=== PATIENT | male | born 1950 | race Caucasian/White ===

== ENCOUNTER 2021-06-22 15:42 | Emergency (ER) | payer OTHER, SELFPAY ==
--- NOTE | ~2021-06-22 | CT_ITS ---
EXAMINATION: CT CERVICAL SPINE WITHOUT CONTRAST CLINICAL INFORMATION: Neck pain radiating to the right side COMPARISON: None TECHNIQUE: Multidetector CT imaging of the cervical spine was performed without the use of intravenous contrast. Coronal and sagittal reformats are reviewed. This CT examination was performed using dose optimization techniques as appropriate, variously including the following: *Automated exposure control *Adjustment of mA and/or kV according to patient size (this includes techniques or standardized protocols for targeted exams where dose is matched to indication/reason for exam; i.e. extremities or head) *Use of iterative reconstruction technique DLP: 402 mGy-cm FINDINGS: Atlantooccipital, atlantoaxial and cervical alignment are maintained. No acute fracture or subluxation. Vertebral body heights maintained. Bulky endplate osteophytes present throughout the cervical spine with accompanying uncovertebral arthrosis and facet arthropathy, the latter most notably at C2-C3 on the left. These changes lead to varying degrees of foraminal narrowing throughout the cervical spine, most severe on the right at C3-C4 and on the left at C2-C3 and C6-C7. There is at least mild central canal stenosis at C3-C4. Paraspinal soft tissues unremarkable. Imaged lung apices are clear. CT/CT cervical spine wo con IMPRESSION: No acute fracture or traumatic malalignment. Cervical spondylosis and foraminal narrowing as described.
[2021-06-22 16:22] VITALS: BP 133/69; PULSE 83; RESP 18; TEMP 36.4; O2SAT 98; BMI 24.0
--- NOTE | 2021-06-22 16:31 | PC.NURSE ---
pt presents to ED with steady gait, after a fall 3 weeks ago. C/O back and neck pain. No acute distress at this time, pt requires interpretive services
[2021-06-22] MEDS: Cyclobenzaprine HCl 5 MG TABLET PO (17:07)
[2021-06-22] MEDS: Acetaminophen 325 MG TABLET 650 MG PO (17:08)
--- NOTE | 2021-06-22 17:11 | ED.GENADULT ---
HPI - General Adult General Chief complaint: Fall Stated complaint: Fall/Neck and back pain Time Seen by Provider: 06/22/21 16:37 Source: patient Mode of arrival: ambulatory History of Present Illness HPI narrative: 71-year-old male with a past medical history of diabetes, hypertension, presenting to the ED complaining of upper back/shoulder and neck pain radiating to head worse on right side x3-4 days. Reports associated paresthesias to RUE. Admits to slipping and catching himself a few days ago however reports pain started prior to this incident, denies head trauma or fall. Denies vision change/loss, weakness, urinary incontinence/retention, back pain. Denies taking AC Onset (ago): day(s) Related Data Previous Rx's Medication Instructions Recorded acetaminophen 500 mg tablet 500 mg PO Q6H PRN #20 tab 06/22/21 (Tylenol Extra Strength) cyclobenzaprine 5 mg tablet 5 mg PO Q8H PRN 5 Days #14 tab 06/22/21 lidocaine 5 % topical patch 1 patch TOPICAL DAILY PRN #30 ea 06/22/21 (Lidoderm) MDD remove after 12 hours Allergies Allergy/AdvReac Type Severity Reaction Status Date / Time No Known Allergies Allergy Unverified 11/17/19 19:28 [No Known Allergies*] Review of Systems Review of Systems: Constitutional: No Fever, No Chills ENT/Mouth: No Ear Pain, No Nasal Congestion, No sore throat, No Rhinorrhea, No Swallowing Difficulty Cardiovascular: No Chest Pain, No SOB Respiratory: No Cough, No Sputum Gastrointestinal: No Nausea, No Vomiting, No Diarrhea, No Constipation, No Abdominal pain Genitourinary: No Dysuria, No Urinary Frequency, No Hematuria, No Urinary Incontinence/retention Musculoskeletal: + joint pain, No Myalgias, No Joint Swelling Skin: No Skin Lesions, No rash Neuro: No Weakness, No Numbness, + Paresthesias Yes all other systems are reviewed and are negative Neurologic: Denies Sensory deficit (Neuro) [facility] Past Medical History Attestation statement: The following information was validated with the patient. Medical History Diabetes HTN (hypertension) Social History Social History Advance Directives: No Advance Directives Information Provided: No Physical Exam ED Vital Signs: Vital Signs - 24 hr 06/22/21 16:22 Temperature 97.5 F Pulse Rate 83 Respiratory Rate 18 Blood Pressure 133/69 Pulse Oximetry 98 BMI result Body Mass Index 24.0 Const General: cooperative, healthy appearing, no acute distress, alert and awake Orientation/consciousness: patient oriented x3 Limitations: no limitations HENMT Head: Yes normal to inspection and Yes atraumatic Ears: hearing grossly normal bilaterally, external ears normal, TM's normal bilaterally and mastoids normal General nose exam: Normal external nose present Face and sinus: Yes normal facial exam Eyes General: appearance normal, both eyes and all related structures EOM: EOMs intact bilaterally Neck Other: No midline cervical spine tenderness. Right-sided neck MSK tenderness and right trapezius muscle tenderness Neck: Yes normal visual inspection, Yes no meningeal signs, Yes supple and No anterior neck swelling Resp Effort & Inspection: normal respiratory effort, no respiratory distress, no stridor and not tachypneic Cardio Rate: regular rate Heart sounds: S1 normal heart sound present and S2 normal heart sound present Peripheral pulses: radial pulses present General: Yes no CVA tenderness Back/Spine/Pelvis Other: No midline thoracic/lumbar spinous tenderness/step-off or deformity Back: no CVA tenderness Skin Rashes: no rashes Wounds: no wounds Neuro General: patient oriented x3, gait normal, tone normal, moves all extremities, no meningeal signs and no focal motor deficits Gait exam (Neuro): Normal gait present Motor exam (neuro): 5/5 motor strength present throughout Sensory Exam: No Sensory deficit (Neuro) Extrem General: Yes normal to inspection Course Course Course Narrative: CT cervical spine wo con IMPRESSION: No acute fracture or traumatic malalignment. Cervical spondylosis and foraminal narrowing as described. >> results discussed with patient with japanese interpreter including worrisome signs and symptoms and strict return precautions and need close follow-up with PCP. Patient reports mild symptomatic improvement after p.o. Flexeril in the ED. Feels safe for discharge home at this time Medical Decision Making MDM Narrative Medical decision making narrative: 71-year-old male with a past medical history of diabetes, hypertension, presenting to the ED complaining of upper back/shoulder pain radiating to neck pain and head radiating worse on right side x3-4 days. On exam vital signs stable, NAD/nontoxic appearing, physical exam as above, no midline spinous tenderness. Concern for MSK pain/strain. Lower concern for cord compression, cervical dissection Plan: Cervical spine CT Medical Records Medical records reviewed: Yes I reviewed the patient's medical records. Lab Data Lab results reviewed: Yes I reviewed the patient's lab results. Discharge Plan Discharge Clinical Impression: Neck pain, Back pain Patient Disposition: Home, Self-Care Instructions: Back Pain (ED), Acute Neck Pain (ED) Additional Instructions: Your CT scan does not show any fracture, does show some arthritic changes/narrowing in her cervical spine it is important for you to follow-up with your primary care doctor Your pain is likely musculoskeletal Flexeril is a muscle relaxer, take at night as it makes you drowsy, do not drive, drink alcohol, or operate machinery while taking it Lidoderm patches are numbing patches, apply to painful area In addition take Tylenol at home If symptoms persist or worsen, pain becomes unbearable, you developed urinary retention or incontinence, or weakness return to the ED Roberts tomograf?a computarizada no muestra ninguna fractura, muestra algunos cambios artr?ticos/estrechamiento en la columna cervical. Es importante que mitul un seguimiento con roberts m?dico de atenci?n primaria. Es probable que roberts dolor sea musculoesquel?john Flexeril es un relajante muscular, t?nicki por la noche ya que te adormece, no conduzcas, bebas alcohol ni operes maquinaria mientras lo atilio. Los parches de Lidoderm son parches anest?sicos, se aplican en el ?licha dolorida Adem?s keiry Tylenol en casa Si los s?ntomas persisten o empeoran, el dolor se vuelve insoportable, desarroll? retenci?n urinaria o incontinencia, o debilidad, regrese al servicio de urgencias. Prescriptions: New acetaminophen [Tylenol Extra Strength] 500 mg tablet 500 mg PO Q6H PRN (Reason: pain or fever) Qty: 20 0RF lidocaine [Lidoderm] 5 % adhesive patch,medicated 1 patch topical DAILY MDD remove after 12 hours PRN (Reason: pain) Qty: 30 0RF Rx Instructions: leave on most painful area for up to 12 hrs cyclobenzaprine 5 mg tablet 5 mg PO Q8H PRN (Reason: pain (scale score 7-10)) 5 Days Qty: 14 0RF Referrals: Name,MD Martin [Primary Care Provider] - 5 days Print Language: Scottish
== END 2021-06-22 18:20 | disposition home or self-care (01) ==
PROVIDERS: Emergency Provider Emergency Medicine Emergency Medical Services; PCP Internal Medicine Geriatric Medicine
DX: M54.2 Cervicalgia (principal); M25.511 Pain in right shoulder; M54.50 Low back pain, unspecified; Z79.899 Other long term (current) drug therapy
CPT/HCPCS: 72125; 99284

== ENCOUNTER 2022-06-16 11:54 | Emergency (ER) | payer OTHER, SELFPAY ==
--- NOTE | ~2022-06-16 | XR_ITS ---
EXAMINATION: XR CERVICAL SPINE CLINICAL INFORMATION: Right-sided neck pain radiating to shoulder COMPARISON: Cervical spine CT May 2021 TECHNIQUE: 3 views of the cervical spine were obtained. FINDINGS: Bone alignment is normal. No fracture or dislocation. There is severe multilevel degenerative spondylosis from C2-C3 to C6-C7. Prevertebral soft tissues are normal. XR/XR cervical spine 3V IMPRESSION: Severe multilevel degenerative changes.
[2022-06-16 12:08] VITALS: BP 151/68; PULSE 95; RESP 18; TEMP 36.7; O2SAT 99; BMI 20.9
--- NOTE | 2022-06-16 12:09 | ED.NECK ---
HPI - Neck Pain/Injury General Stated Complaint: neck/ back pain Related Data Previous Rx's Medication Instructions Recorded acetaminophen 500 mg tablet 500 mg PO Q6H PRN pain or fever 06/22/21 (Tylenol Extra Strength) #20 tabs cyclobenzaprine 5 mg tablet 5 mg PO Q8H PRN pain (scale score 06/22/21 7-10) 5 days #14 tabs lidocaine 5 % topical patch 1 patch topical DAILY PRN pain #30 06/22/21 (Lidoderm) ea Allergies Allergy/AdvReac Type Severity Reaction Status Date / Time No Known Allergies Allergy Unverified 11/17/19 19:28 [No Known Allergies*] [facility] Past Medical History Medical History Diabetes HTN (hypertension) Course Course Course Narrative: RME - 72yo mosotho speaking male presenting for right sided neck pain radiating to his shoulder for [address] of his cervical spine for similar symptoms 06/22/21 which showed cervical spondylosis and foraminal narrowing for which he received Flexeril and Lidoderm patches. Increasing pain over past 3 months. Weakness of right arm with no numbness of tingling. Plan: X-ray Discharge Plan Discharge Prescriptions: No Action acetaminophen [Tylenol Extra Strength] 500 mg tablet 500 mg PO Q6H PRN (Reason: pain or fever) Qty: 20 0RF lidocaine [Lidoderm] 5 % adhesive patch,medicated 1 patch topical DAILY MDD remove after 12 hours PRN (Reason: pain) Qty: 30 0RF Rx Instructions: leave on most painful area for up to 12 hrs cyclobenzaprine 5 mg tablet 5 mg PO Q8H PRN (Reason: pain (scale score 7-10)) 5 Days Qty: 14 0RF
--- NOTE | 2022-06-16 14:02 | ED.GENADULT ---
HPI - General Adult General Chief complaint: General Medical Stated complaint: neck/ back pain Time Seen by Provider: 06/16/22 13:49 Source: patient Mode of arrival: ambulatory Limitations: no limitations History of Present Illness HPI narrative: 72 year old male history of diabetes presents to the ED for posterior neck pain radiating down right shoulder. Patient denies any new trauma. Patient denies any chest pain, shortness of breath, swelling of upper extremities, dizziness, passing out, headache, fever, headache, photophobia, rash or chills. Patient denies paralysis of extremities. patient denies any urinay/bowel incontinence Related Data Previous Rx's Medication Instructions Recorded acetaminophen 500 mg tablet 500 mg PO Q6H PRN pain or fever 06/22/21 (Tylenol Extra Strength) #20 tabs cyclobenzaprine 5 mg tablet 5 mg PO Q8H PRN pain (scale score 06/22/21 7-10) 5 days #14 tabs lidocaine 5 % topical patch 1 patch topical DAILY PRN pain #30 06/22/21 (Lidoderm) ea cyclobenzaprine 10 mg tablet 10 mg PO BEDTIME PRN muscle spasm 06/16/22 10 days #10 tabs naproxen 500 mg tablet 500 mg PO BID PRN pain 7 days #14 06/16/22 tabs prednisone 20 mg tablet 40 mg PO DAILY 5 days #10 tabs 06/16/22 Allergies Allergy/AdvReac Type Severity Reaction Status Date / Time No Known Allergies Allergy Unverified 11/17/19 19:28 [No Known Allergies*] Review of Systems Review of Systems: Posterior neck pain radiating right shoulder Yes all other systems are reviewed and are negative [facility] Past Medical History Medical History Diabetes HTN (hypertension) Social History Social History Advance Directives: No Advance Directives Information Provided: Yes Physical Exam ED Vital Signs: Vital Signs - 24 hr 06/16/22 12:08 Temperature 98.0 F Pulse Rate 95 Respiratory Rate 18 Blood Pressure 151/68 H Pulse Oximetry 99 Oxygen Delivery Method Room Air BMI result Body Mass Index 20.9 Const General: cooperative, healthy appearing, comfortable, no acute distress, well developed, alert, awake and Physically active Orientation/consciousness: oriented to person, oriented to place, oriented to time and patient oriented x3 [facility] Head: Yes normal to inspection, Yes No palpable skull fracture present, Yes normocephalic, Yes atraumatic and No abrasion Throat: Yes posterior oropharynx normal, Yes tonsils normal and Yes uvula midline Eyes Other: negative photophobia General: appearance normal, both eyes and all related structures Neck Neck: Yes normal visual inspection, Yes full ROM, Yes no lymphadenopathy, Yes no meningeal signs, Yes trachea midline, Yes supple, No anterior neck swelling, Yes tender (posterior cervical spine tenderness) and No torticollis Chest Chest palpation & inspection: normal inspection of the chest and normal palpation of entire chest wall Resp Effort & Inspection: normal respiratory effort and able to speak in complete sentences Auscultation: clear to auscultation bilaterally Cardio Jugular venous distension: no JVD Heart sounds: S1 normal heart sound present and S2 normal heart sound present GI Inspection: Yes normal to inspection and No abdominal wall ecchymosis Palpation (GI): Soft to palpation, not firm, nontender, no guarding and not rigid General: No CVA tenderness and Yes no CVA tenderness Back/Spine/Pelvis Back: no CVA tenderness, No CVA tenderness and No back tenderness Skin General skin exam: no rashes or lesions noted and elasticity normal Neuro General: oriented to person, oriented to place, oriented to time, patient oriented x3, gait normal, tone normal, moves all extremities, Normal light touch and pain sensation, no meningeal signs, no focal motor deficits and CN's II-XI intact bilaterally Extrem General: Yes normal to inspection and Yes full ROM Psych Appearance: grossly normal, well kempt and not disheveled Course Course Course Narrative: Sent for x-ray of spine. Reevaluation(s) Reevaluation #1: X-ray shows severe cervical radiculopathy. Negative for fracture. Not suspect epidural abscess or cauda equinus syndrome. Patient informed to follow-up primary care provider for referral for physical therapy and MRI. History physical exam does not indicate meningitis. Time: 14:13 Medical Decision Making Medical Decision Making [facility] Narrative: 72 old male with posterior neck pain radiating down right shoulder. Patient denies any trauma, chest pain, paralysis of extremities, headache, fever, chills, rash, photophobia. X-ray confirms cervical radiculopathy. Patient educated physical therapy and follow-up with primary care provider for MRI. Patient will be discharged with steroids and pain medication Differential Diagnosis Differential Diagnoses: The differential diagnosis associated with the presentation includes (Cervical spine fracture. Cervical radiculopathy. Meningitis. Epidural abscess, cauda equinus syndrome.) Admission/Observation Consideration of admission/observation: Escalation of care including admission/observation considered Independent Interpretation I performed an independent interpretation of an: Plain X-Ray Radiology Impression Discussion of test interpretation with radiology: I have reviewed the radiologist's reading. Prescription Management I considered prescription management with: Pain Medication Discharge Plan Discharge Clinical Impression: Cervical radiculopathy Patient Disposition: Home, Self-Care Instructions: Cervical Radiculopathy (ED) Additional Instructions: Regrese al servicio de urgencias inmediatamente si empeora el dolor de victorino, dolor de neema, fotofobia, fiebre, escalofr?os, par?lisis de las extremidades, dolor tor?cico, dificultad para respirar, incontinencia urinaria o intestinal o cualquier otro s?ntoma preocupante. Cindy un seguimiento con diaz proveedor de atenci?n primaria para que lo remita a fisioterapia y tambi?n a aníbal resonancia magn?baldev. Prescriptions: New prednisone 20 mg tablet 40 mg PO DAILY 5 Days Qty: 10 0RF cyclobenzaprine 10 mg tablet 10 mg PO BEDTIME PRN (Reason: muscle spasm) 10 Days Qty: 10 0RF naproxen 500 mg tablet 500 mg PO BID PRN (Reason: pain) 7 Days Qty: 14 0RF No Action acetaminophen [Tylenol Extra Strength] 500 mg tablet 500 mg PO Q6H PRN (Reason: pain or fever) Qty: 20 0RF lidocaine [Lidoderm] 5 % adhesive patch,medicated 1 patch topical DAILY MDD remove after 12 hours PRN (Reason: pain) Qty: 30 0RF Rx Instructions: leave on most painful area for up to 12 hrs cyclobenzaprine 5 mg tablet 5 mg PO Q8H PRN (Reason: pain (scale score 7-10)) 5 Days Qty: 14 0RF Interventions: ED Discharge Assessment Last Done: 06/16/22 14:47 Discharge Date/Time: 06/16/22 14:48 Print Language: Yemeni
== END 2022-06-16 14:48 | disposition home or self-care (01) ==
PROVIDERS: Emergency Provider Emergency Medicine
DX: M54.12 Radiculopathy, cervical region (principal); M54.2 Cervicalgia; E11.9 Type 2 diabetes mellitus without complications; I10 Essential (primary) hypertension; Z79.899 Other long term (current) drug therapy
CPT/HCPCS: 72040; 99282; 99283

== ENCOUNTER 2022-09-15 13:50 | Outpatient (REF) | payer OTHER, SELFPAY ==
[2022-09-15 16:37] LABS: Anion Gap 16 (12-20); Blood Urea Nitrogen 21 mg/dL (9-16); Carbon Dioxide 27 mmol/L (22-29); Chloride 97 mmol/L (96-108); Estimated Glomerular Filt Rate > 60; Glucose Random 265 mg/dL (60-115); Potassium 4.9 mmol/L (3.3-5.1); Sodium 135 mmol/L (135-145)
== END 2022-09-15 13:51 | disposition home or self-care (01) ==
LOC: HO.HHCL 13:50
PROVIDERS: Visit Provider Internal Medicine Geriatric Medicine
DX: E11.8 Type 2 diabetes mellitus with unspecified complications (principal)
CPT/HCPCS: 36415; 80048

== ENCOUNTER 2022-09-19 13:00 | Outpatient (RCR) | payer OTHER, SELFPAY | END 2022-10-06 10:02 | disposition home or self-care (01) | LOC: HO.PT 13:00 | PROVIDERS: PCP Internal Medicine Geriatric Medicine; Visit Provider Internal Medicine Geriatric Medicine | DX: M25.511 Pain in right shoulder (principal); G89.29 Other chronic pain | CPT/HCPCS: 97110; 97140; 97161 ==

== ENCOUNTER 2022-12-16 13:30 | Outpatient (AMB) | payer OTHER, SELFPAY ==
--- NOTE | 2022-12-16 13:39 | MHC.OFFVIS ---
Intake Vital Signs 12/16/22 13:40 Height 5 ft 6 in Weight 126 lb BMI 20.3 BP 103/47 L Blood Pressure Location Lt brachial Position Sitting Pulse 77 Intake Visit Reasons: Dysphagia Intake Note: Patient new consult for Dysphagia. Patient cc: acid reflex and swallowing problems, denies any other GI issues. Contact And Service Clerks Supervisor Required: Yes Contact And Service Clerks Supervisor Name: Stephie [phone] Accompanied by: Self / Same As Patient Allergies No Known Allergies [No Known Allergies*] Allergy (Verified 12/16/22 13:35) Medication List - Last Reconciled 12/16/22 by Denise Paniagua PA-C acetaminophen (Tylenol Extra Strength) 500 mg PO Q6H PRN buspirone 7.5 mg PO BID cyclobenzaprine 5 mg PO Q8H PRN 5 days cyclobenzaprine 10 mg PO BEDTIME PRN 10 days dulaglutide (Trulicity) mg subcut insulin aspart U-100 (Novolog FlexPen U-100 Insulin aspart) subcut insulin glargine (Lantus Solostar U-100 Insulin) units subcut lidocaine 5% (Lidoderm) 1 patch topical DAILY PRN MDD remove after 12 hours lisinopril 10 mg PO DAILY metformin 1,000 mg PO BID naproxen 500 mg PO BID PRN 7 days prednisone 40 mg (2 x 20 mg) PO DAILY 5 days pregabalin 75 mg PO DAILY simvastatin 20 mg PO BEDTIME HPI HPI Comments History of Present Illness Details A 72 y/o male here with acid reflux and dysphagia- he has difficulty swallowing pill. Acid reflux, intermittently-no ppi or H2 mara- He has lost weight- over the past year- about 20 pounds -he is DM-jardiance and trulicity-appetite is very good. He is a former smoker, he does have a chronic nonproductive cough Blood sugars are not well controlled - He has not had a Barium swallow- scheduled for 02/25/23 He had a colonoscopy 5 years ago in [facility] Medical History (Updated 12/22/22 @ 11:13 by Denise Paniagua PA-C) HTN (hypertension) Diabetes Surgical History History of back surgery Social History Household Members: Family Alcohol intake: never Patient Tobacco Use Status: Never used Tobacco Review of Systems Const All systems reviewed & are unremarkable except as noted in HPI and below Denies chills, Reports fatigue, Denies fever(s) and Reports weight loss ENT Reports dysphagia Card Denies chest pain and Denies dyspnea Resp Denies dyspnea GI Reports dysphagia and Reports heartburn Endo Reports fatigue Physical Exam Vital Signs: Last Vital Signs Pulse 77 12/16/22 13:40 BP 103/47 L 12/16/22 13:40 BMI result Body Mass Index 20.3 Const General: comfortable and no acute distress Nutritional Appearance: thin Orientation/consciousness: patient oriented x3 Eyes Sclerae: sclerae normal Resp Effort & Inspection: normal respiratory effort, able to speak in complete sentences and Actively coughing Auscultation: no wheezes and diminished lung sounds Cardio Rate: regular rate Rhythm: regular rhythm Heart sounds: S1 normal heart sound present and S2 normal heart sound present GI Palpation (GI): Soft to palpation and nontender Auscultation: normal bowel sounds Skin General skin exam: no rashes or lesions noted Neuro General: patient oriented x3 Extrem General: Yes full ROM Psych Mental Status: mental status grossly normal Speech and movement: Clear speech present Affect: normal affect Attitude: cooperative Thought process: Normal thought process present Thought content: Normal thought content present Insight: Good insight present (Psych) Judgement: Good judgement present (Psych) Assessment & Plan Assessment & Plan (1) Dysphagia: Code(s): R13.10 - Dysphagia, unspecified Plan: ck HP-if positive will treat PPI-if negative (2) Weight loss: Comment: Monitor weight DM- Former smoker with cough Code(s): R63.4 - Abnormal weight loss Plan: CXR- (3) Acid reflux: Comment: H pylori stool antigen if positive will treat Code(s): K21.9 - Gastro-esophageal reflux disease without esophagitis Plan: Reflux precautions (4) Anemia: Code(s): D64.9 - Anemia, unspecified Plan Last colonoscopy in [place] 5 years or more With dysphagia/GERD EGD Will see back in office and discuss in detail procedure Orders: Orders Hepatitis C Viral Load 12/16/22 D64.9 - Anemia, unspecified, R63.4 - Abnormal weight loss Ferritin 12/16/22 D64.9 - Anemia, unspecified Complete Blood Count Auto Diff 12/16/22 K52.9 - Noninfective gastroenteritis and colitis, unspecified Endomysial IgA rflx Titer 12/16/22 D64.9 - Anemia, unspecified EDG - GI Use Only 12/16/22 XR chest 2V 12/16/22 R05.9 - Cough, unspecified, R63.4 - Abnormal weight loss H pylori Ag Stool 12/17/22 A04.8 - Other specified bacterial intestinal infections Comprehensive Met. Panel 12/16/22 K58.9 - Irritable bowel syndrome without diarrhea Thyroid Stimulating Hormone 12/16/22 D64.9 - Anemia, unspecified, R63.4 - Abnormal weight loss Transglutaminase IgA 12/16/22 D64.9 - Anemia, unspecified, R13.10 - Dysphagia, unspecified EGD/[place] Combo - GI Use Only Today D64.9 - Anemia, unspecified, K21.9 - Gastro-esophageal reflux disease without esophagitis, R13.10 - Dysphagia, unspecified, R63.4 - Abnormal weight loss Patient Instructions: Labs, chest x-ray H pylori stool antigen if positive will treat Will see back in office in 1 wk to review results Schedule EGD and colonoscopy Coding Level of Care Code New Pt Level 3 (78869) Diagnoses Dysphagia R13.10 Weight loss R63.4 Acid reflux K21.9 Anemia D64.9 Time Spent (min) 30 Comment 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
[2022-12-16 13:40] VITALS: BP 103/47; PULSE 77; BMI 20.3
== END 2022-12-16 14:12 | disposition home or self-care (01) ==
PROVIDERS: PCP Internal Medicine Geriatric Medicine; Visit Provider Physician Assistant
DX: R13.10 Dysphagia, unspecified (principal); R63.4 Abnormal weight loss; K21.9 Gastro-esophageal reflux disease without esophagitis; D64.9 Anemia, unspecified
CPT/HCPCS: 99203

== ENCOUNTER 2022-12-16 13:30 | Outpatient (REF) | payer OTHER, SELFPAY ==
--- NOTE | ~2022-12-16 | XR_ITS ---
EXAMINATION: XR CHEST CLINICAL INFORMATION: Abnormal weight COMPARISON: 04/27/2018 TECHNIQUE: 2 views of the chest were obtained. FINDINGS: Lungs are clear cardiomediastinal silhouette is normal. There is no pleural effusion lung masses or nodules. There is mild pectus carinatum deformity. There are mild degenerative changes in thoracic spine. XR/XR chest 2V IMPRESSION: No active cardiopulmonary disease
[2022-12-16 14:35] LABS: MANUAL DIFF FLAG NO
[2022-12-16 14:48] LABS: Basophils Percent Auto 0.1 % (0-2); Eosinophils Percent Auto 0.3 % (0-4); Hematocrit 41.1 % (42.0-52.0); Hemoglobin 13.9 g/dl (14.0-18.0); Imm Gran Abs Auto 0.02 X10*3/uL (0.00-0.03); Imm Gran Pct Auto 0.3 % (0.0-0.4); Lymphocytes Absolute Auto 1.9 X10*3/uL (1.2-4.9); Lymphocytes Percent Auto 24.7 % (20-40); Mean Corpuscular HGB Conc 33.8 g/dl (31.0-36.0); Mean Corpuscular Volume 88.6 fL (80.0-98.0); Mean Platelet Volume 10.5 fL (9.4-12.4); Monocytes Absolute Auto 0.6 X10*3/uL (0.1-1.2); Neutrophils Absolute Auto 5.3 x10*3/uL (2.0-8.3); Neutrophils Percent Auto 67.6 % (45-73); Platelet Count 229 X10*3/uL (160-400); Red Blood Count 4.64 X10*6/uL (4.60-5.80); Red Cell Distribution Width 12.9 % (11.0-16.0); White Blood Count 7.9 X10*3/uL (4.8-10.8)
[2022-12-16 16:01] LABS: Alanine Aminotransferase 23 U/L (0-40); Albumin Level 4.6 g/dL (3.5-5.0); Alkaline Phosphatase 55 U/L (39-117); Anion Gap 18 (12-20); Aspartate Amino Transferase 23 U/L (5-37); Bilirubin Total 0.3 mg/dL (0.0-1.0); Blood Urea Nitrogen 23 mg/dL (9-16); Calcium 10.6 mg/dL (8.4-10.2); Carbon Dioxide 26 mmol/L (22-29); Chloride 97 mmol/L (96-108); Estimated Glomerular Filt Rate > 60; Glucose Random 123 mg/dL (60-115); Potassium 5.4 mmol/L (3.3-5.1); Sodium 136 mmol/L (135-145); Total Protein 7.4 g/dL (6.5-8.0)
[2022-12-16 16:12] LABS: Ferritin 49 ng/mL (20-250); Thyroid Stimulating Hormone 1.36 uIU/mL (0.32-4.0)
[2022-12-17 18:39] LABS: HCV Log PCR <1.18 NOT DETECTED Log IU/mL (NOT DETECTED); HepC Viral Load <15 NOT DETECTED IU/mL (NOT DETECTED)
[2022-12-18 17:53] LABS: Transglutaminase IgA <1.0 U/mL
[2022-12-20 12:12] LABS: Endomysial IgA Antibody Negative (Negative)
== END 2022-12-16 13:31 | disposition home or self-care (01) ==
LOC: HO.LAB 13:30
PROVIDERS: PCP Internal Medicine Geriatric Medicine; Visit Provider Physician Assistant
DX: R13.10 Dysphagia, unspecified (principal); R63.4 Abnormal weight loss; K21.9 Gastro-esophageal reflux disease without esophagitis; D64.9 Anemia, unspecified; K58.9 Irritable bowel syndrome, unspecified; R05.9 Cough, unspecified
CPT/HCPCS: 36415; 71046; 80053; 82728; 84443; 85025; 86231; 86364; 87522; 99202

== ENCOUNTER 2022-12-17 13:03 | Outpatient (REF) | payer OTHER, SELFPAY | END 2022-12-17 13:04 | disposition home or self-care (01) | LOC: HO.LNP 13:03 | PROVIDERS: Visit Provider Physician Assistant | DX: A04.8 Other specified bacterial intestinal infections (principal) | CPT/HCPCS: 87338 ==

== ENCOUNTER 2022-12-17 15:14 | Outpatient (REF) | payer OTHER, SELFPAY ==
[2022-12-17 16:39] LABS: Anion Gap 17 (12-20); Blood Urea Nitrogen 25 mg/dL (9-16); Calcium 10.4 mg/dL (8.4-10.2); Carbon Dioxide 25 mmol/L (22-29); Chloride 97 mmol/L (96-108); Estimated Glomerular Filt Rate 59; Glucose Random 131 mg/dL (60-115); Potassium 4.7 mmol/L (3.3-5.1); Sodium 134 mmol/L (135-145)
== END 2022-12-17 15:15 | disposition home or self-care (01) ==
LOC: HO.HHCL 15:14
PROVIDERS: Visit Provider Internal Medicine Geriatric Medicine
DX: E87.5 Hyperkalemia (principal)
CPT/HCPCS: 36415; 80048

== ENCOUNTER 2022-12-30 14:02 | Outpatient (AMB) | payer OTHER, SELFPAY ==
--- NOTE | 2022-12-30 14:17 | A.OFFVIS_ITS ---
Intake Vital Signs 12/30/22 14:19 Height 5 ft 6 in Weight 136 lb BMI 21.9 BP 104/58 L Blood Pressure Location Lt brachial Position Sitting Pulse 87 Intake Visit Reasons: 2 week follow up Dysphagia Intake Note: Patient follow up for Dysphagia , lab and stool results. Patient cc: swallowing problem, discomfort on his left arm, denies any other GI issues. Events [employer] Consultant Required: Yes Events [employer] Consultant Name: [facility] [place] interpeter Accompanied by: Self / Same As Patient Allergies No Known Allergies [No Known Allergies*] Allergy (Verified 12/30/22 14:17) Medication List - Last Reconciled 12/30/22 by Denise Paniagua PA-C acetaminophen (Tylenol Extra Strength) 500 mg PO Q6H PRN buspirone 7.5 mg PO BID cyclobenzaprine 5 mg PO Q8H PRN 5 days cyclobenzaprine 10 mg PO BEDTIME PRN 10 days dulaglutide (Trulicity) mg subcut insulin aspart U-100 (Novolog FlexPen U-100 Insulin aspart) subcut insulin glargine (Lantus Solostar U-100 Insulin) units subcut lidocaine 5% (Lidoderm) 1 patch topical DAILY PRN MDD remove after 12 hours lisinopril 10 mg PO DAILY metformin 1,000 mg PO BID naproxen 500 mg PO BID PRN 7 days prednisone 40 mg (2 x 20 mg) PO DAILY 5 days pregabalin 75 mg PO DAILY simvastatin 20 mg PO BEDTIME HPI HPI Comments History of Present Illness Details A 72 y/o male seen with multiple c/o he had blood work done here for results Had faxed in results to PCP due to low-sodium ETC-patient tells me he had more blood work at his PCPs office Wt loss, acid reflux, dysphagia- anxiety Placed order for EGD colonoscopy Has barium swallow appointment pending schedule by PCP for 02/25/23 Sent for HP stool antigen- and labs He has started tx for anxiety- feels better , eating better He has no GI or general complaints today No nausea, vomiting, hematemesis, hematochezia fever chills PFSH Medical History (Updated 12/30/22 @ 14:54 by Denise Paniagua PA-C) HTN (hypertension) Diabetes Surgical History History of back surgery Social History Household Members: Family Alcohol intake: never Patient Tobacco Use Status: Never used Tobacco Review of Systems Const Details: All systems reviewed are negative conference interpreter present All systems reviewed & are unremarkable except as noted in HPI and below Physical Exam Vital Signs: Last Vital Signs Pulse 87 12/30/22 14:19 BP 104/58 L 12/30/22 14:19 BMI result Body Mass Index 21.9 very good spirits today Eyes Conjunctivae: conjunctivae normal Resp Effort & Inspection: normal respiratory effort and able to speak in complete sentences Auscultation: clear to auscultation bilaterally, no rhonchi, no wheezes and diminished lung sounds Cardio Rate: regular rate Rhythm: regular rhythm Heart sounds: S1 normal heart sound present and S2 normal heart sound present GI Palpation (GI): Soft to palpation and nontender Auscultation: normal bowel sounds Extrem General: Yes full ROM Psych Appearance: well kempt Speech and movement: Clear speech present Affect: normal affect (Very good spirits) Attitude: cooperative Thought process: Normal thought process present Thought content: Normal thought content present Insight: Good insight present (Psych) Judgement: Good judgement present (Psych) Results Reviewed Results Reviewed: HP - positive Assessment & Plan Assessment & Plan (1) Acid reflux: Code(s): K21.9 - Gastro-esophageal reflux disease without esophagitis (2) Weight loss: Comment: Monitor weight-increase weight Reviewed chest x-ray negative Code(s): R63.4 - Abnormal weight loss (3) Anemia: Code(s): D64.9 - Anemia, unspecified Plan: EGD colonoscopy appointment pending (4) H. pylori infection: Comment: Treat Code(s): A04.8 - Other specified bacterial intestinal infections Plan: Quadruple therapy KATHRIN 6 week Orders: Orders H Pylori Breath Test 6 Weeks A04.8 - Other specified bacterial intestinal infections Medications: New omeprazole 20 mg PO BID 14 days 28 caps 0RF metronidazole 250 mg PO QID 14 days 56 tabs 0RF tetracycline 500 mg PO Q6H 14 days 56 caps 0RF bismuth subsalicylate (Bismuth) 2 tabs PO QID 14 days 112 tabs 0RF Patient Instructions: Very pleasant 72-year-old Gent seen initially extremely anxious however is a in much better spirits today. Reviewed blood work and chest x-ray H pylori positive will treat with quadruple therapy-explained in detail He will return for KATHRIN in 6 weeks At that time we will reinforce EGD and colonoscopy as well as prep He is agreeable to the plan Opportunity for questions No major barriers to understanding were identified [employer] Consultant present Coding Level of Care Code Est Pt Level 3 (82383) Diagnoses Acid reflux K21.9 Weight loss R63.4 Anemia D64.9 H. pylori infection A04.8 Time Spent (min) 30
[2022-12-30 14:19] VITALS: BP 104/58; PULSE 87; BMI 21.9
== END 2022-12-30 14:41 | disposition home or self-care (01) ==
PROVIDERS: PCP Internal Medicine Geriatric Medicine; Visit Provider Physician Assistant
DX: K21.9 Gastro-esophageal reflux disease without esophagitis (principal); R63.4 Abnormal weight loss; D64.9 Anemia, unspecified; A04.8 Other specified bacterial intestinal infections
CPT/HCPCS: 99213

== ENCOUNTER → 2022-12-30 14:02 | Outpatient (BNVA) | payer OTHER, SELFPAY | PROVIDERS: PCP Internal Medicine Geriatric Medicine; Visit Provider Physician Assistant | DX: K21.9 Gastro-esophageal reflux disease without esophagitis (principal); A04.8 Other specified bacterial intestinal infections; R63.4 Abnormal weight loss; D64.9 Anemia, unspecified | CPT/HCPCS: 99212 ==

== ENCOUNTER 2023-02-10 13:56 | Outpatient (AMB) | payer OTHER, SELFPAY ==
--- NOTE | 2023-02-10 14:03 | A.OFFVIS_ITS ---
Intake Vital Signs 02/10/23 14:04 Height 5 ft 6 in Weight 127 lb BMI 20.5 BP 134/63 Blood Pressure Location Lt brachial Position Sitting Pulse 87 Intake Visit Reasons: 6 week follow up needs H Pylori Intake Note: Patient follow up needs Hpylori Patient cc: abdominal discomfort and some acid reflex an some swallowing problems. 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 Accompanied by: Self / Same As Patient Allergies No Known Allergies [No Known Allergies*] Allergy (Verified 02/10/23 14:03) Medication List - Last Reconciled 02/10/23 by eDnise Paniagua PA-C acetaminophen (Tylenol Extra Strength) 500 mg PO Q6H PRN buspirone 7.5 mg PO BID cyclobenzaprine 5 mg PO Q8H PRN 5 days cyclobenzaprine 10 mg PO BEDTIME PRN 10 days dulaglutide (Trulicity) mg subcut insulin aspart U-100 (Novolog FlexPen U-100 Insulin aspart) subcut insulin glargine (Lantus Solostar U-100 Insulin) units subcut lidocaine 5% (Lidoderm) 1 patch topical DAILY PRN MDD remove after 12 hours lisinopril 10 mg PO DAILY metformin 1,000 mg PO BID naproxen 500 mg PO BID PRN 7 days prednisone 40 mg (2 x 20 mg) PO DAILY 5 days pregabalin 75 mg PO DAILY simvastatin 20 mg PO BEDTIME HPI HPI Comments History of Present Illness Details A 73 y/o male f/u for JAYLYN- HP- he has completed 2 week antibiotic tx back in November- orders for colonoscopy placed last visit - He a has intermittent dysphagia, with intermittent reflux Schedule bearing swallow 1227 He has no bowel issues His appetite is fair Occasional nausea, no vomiting he, hematemesis, hematochezia fever chills PFSH Medical History HTN (hypertension) Diabetes Surgical History History of back surgery Social History Household Members: Family Alcohol intake: never Patient Tobacco Use Status: Never used Tobacco Review of Systems Const All systems reviewed & are unremarkable except as noted in HPI and below Card Denies chest pain and Denies dyspnea Resp Denies dyspnea Physical Exam Vital Signs: Last Vital Signs Pulse 87 02/10/23 14:04 BP 134/63 02/10/23 14:04 BMI result Body Mass Index 20.5 Const General: cooperative, comfortable and no acute distress Nutritional Appearance: thin and underweight Orientation/consciousness: patient oriented x3 Limitations: language barrier Eyes Conjunctivae: conjunctival abnormal (Conjunctiva injected bilaterally no drainage) Resp Effort & Inspection: normal respiratory effort and able to speak in complete sentences Neuro General: patient oriented x3 Extrem General: Yes full ROM Psych Appearance: well kempt Mental Status: mental status grossly normal Speech and movement: Normal speech and movement present Affect: normal affect Attitude: cooperative Thought process: Normal thought process present Thought content: Normal thought content present Results Reviewed Results Reviewed: FINDINGS: Lungs are clear cardiomediastinal silhouette is normal. There is no pleural effusion lung masses or nodules. There is mild pectus carinatum deformity. There are mild degenerative changes in thoracic spine. XR/XR chest 2V IMPRESSION: No active cardiopulmonary disease Assessment & Plan Assessment & Plan (1) H. pylori infection: Comment: Jaylyn-pending Code(s): A04.8 - Other specified bacterial intestinal infections Plan: Follow-up results for JAYLYN (2) Acid reflux: Comment: JAYLYN pending Code(s): K21.9 - Gastro-esophageal reflux disease without esophagitis Plan: Reviewed precautions (3) Anemia: Comment: Celiac markers negative TSH normal Code(s): D64.9 - Anemia, unspecified Plan: EGD and colonoscopy order submitted last visit (4) Weight loss: Comment: Monitor weight- Reviewed chest x-ray negative Code(s): R63.4 - Abnormal weight loss Plan: EGD colonoscopy Monitor weight Plan Labs EGD and colonoscopy-30 minute follow-up with court interpreter a.m. only) the patient prefers MiraLax Gatorade prep Half dose p.m. insulin evening before procedure, omit metformin, morning of procedure no diabetes medications Please review simple detail with patient with court interpreter please thank you Orders: Orders EGD/Mark Combo - GI Use Only 02/10/23 A04.8 - Other specified bacterial intestinal infections, D64.9 - Anemia, unspecified, K21.9 - Gastro-esophageal reflux disease without esophagitis, R63.4 - Abnormal weight loss Vitamin B12 and Folate Today D64.9 - Anemia, unspecified IRON PROFILE Today D64.9 - Anemia, unspecified, R63.4 - Abnormal weight loss Ferritin Today D64.9 - Anemia, unspecified Patient Instructions: A very pleasant 73-year-old Gent followed up for JAYLYN for H pylori-vague symptoms dysphagia however scheduled for barium study in a couple of weeks. Meanwhile he will monitor his diet-be sure he is eating sufficient calories per day Eat slowly chew his food well Will call with results of barium study He is scheduled for EGD and a colonoscopy Review procedure, rare risks, need for escorted due to anesthesia Reviewed medications omit metformin evening before procedure as well as evening insulin half dose only. Morning of procedures no diabetes medications. Encouraged to call with questions or concerns Appreciate the opportunity assist in the care this patient Patient needs court interpreter Coding Level of Care Code Est Pt Level 3 (45708) Diagnoses H. 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
[2023-02-10 14:04] VITALS: BP 134/63; PULSE 87; BMI 20.5
== END 2023-02-10 15:23 | disposition home or self-care (01) ==
PROVIDERS: PCP Internal Medicine Geriatric Medicine; Visit Provider Physician Assistant
DX: A04.8 Other specified bacterial intestinal infections (principal); K21.9 Gastro-esophageal reflux disease without esophagitis; D64.9 Anemia, unspecified; R63.4 Abnormal weight loss
CPT/HCPCS: 99213

== ENCOUNTER 2023-02-10 13:56 | Outpatient (REF) | payer OTHER, SELFPAY ==
[2023-02-12 15:30] LABS: H Pylori Breath Test Negative (Negative)
== END 2023-02-10 13:57 | disposition home or self-care (01) ==
LOC: CF 13:56
PROVIDERS: PCP Internal Medicine Geriatric Medicine; Visit Provider Physician Assistant
DX: A04.8 Other specified bacterial intestinal infections (principal); R13.19 Other dysphagia; K21.9 Gastro-esophageal reflux disease without esophagitis; D64.9 Anemia, unspecified; R63.4 Abnormal weight loss
CPT/HCPCS: 83013; 99212

== ENCOUNTER 2023-03-19 10:00 | Outpatient (REF) | payer OTHER, SELFPAY | END 2023-03-19 10:01 | disposition home or self-care (01) | LOC: HO.XRAY 10:00 | PROVIDERS: PCP Internal Medicine Geriatric Medicine; Visit Provider Internal Medicine Geriatric Medicine | DX: Z13.89 Encounter for screening for other disorder (principal) ==

== ENCOUNTER 2023-04-02 09:59 | Outpatient (REF) | payer OTHER, SELFPAY ==
--- NOTE | ~2023-04-02 | FL_ITS ---
EXAMINATION: FL BARIUM SWALLOW CLINICAL INFORMATION: Dysphagia COMPARISON: None TECHNIQUE: Fluoroscopic air contrast upper GI examination was performed utilizing standard techniques with thin and thick barium and effervescent granules. Numerous spot images were obtained. FINDINGS: Lateral cine images of the oropharynx and hypopharynx demonstrate normal swallow mechanism with normal epiglottic inversion and soft palate elevation. Trace laryngeal penetration is seen with thick barium. No tracheal penetration, glottic or subglottic aspiration identified. No nasopharyngeal reflux present. Hypopharyngeal structures appear normal without evidence of mass or diverticulum. There was no significant cricopharyngeal achalasia. Dual and single contrast images of the esophagus demonstrate normal caliber, contour, and mucosal pattern. No evidence of stricture, mass, or ulcerations identified. There is to and fro motion of the barium column. Nonpropulsive tertiary contractions are seen in the mid and distal esophagus. Small type I hiatal hernia is present. No significant gastroesophageal reflux was seen during the course of the examination and on reflux views. Incidentally noted, bulky ventral disc osteophytes are present in the cervical spine spanning C2-C7, with relative preservation of the disc spaces, findings highly suspicious for DISH. These cause mild indentation upon the inferior hypopharynx and upper esophagus, although likely not clinically significant. FLUOROSCOPY TIME: 3 minutes 38 seconds Number of Spot Images: 4 Number of Cine: 9 DOSE AREA PRODUCT: 803 uGy-m2 (microgray-meter squared) FL/FL barium swallow IMPRESSION: 1. Trace laryngeal penetration with thick barium. 2. Esophageal dysmotility. 3. Small type I hiatal hernia. 4. Cervical spine findings highly suspicious for DISH. This procedure was performed by Trevor Brandt PA-C, and supervised by Dr. Palumbo
== END 2023-04-02 10:00 | disposition home or self-care (01) ==
LOC: HO.XRAY 09:59
PROVIDERS: PCP Internal Medicine Geriatric Medicine; Visit Provider Internal Medicine Geriatric Medicine
DX: R13.10 Dysphagia, unspecified (principal)
CPT/HCPCS: 74220

== ENCOUNTER → 2023-04-02 10:02 | Outpatient (BNV) | payer OTHER, SELFPAY | PROVIDERS: PCP Internal Medicine Geriatric Medicine; Visit Provider Radiology Diagnostic Radiology | DX: R13.10 Dysphagia, unspecified (principal) | CPT/HCPCS: 74246 ==

== ENCOUNTER 2023-04-08 15:51 | Outpatient (REF) | payer OTHER, SELFPAY ==
[2023-04-08 17:50] LABS: Appearance Urine Clear; Color Urine Yellow; Glucose Urine UA >=1000 mg/dL (Negative); Leukocyte Esterase Urine Negative (Negative); Nitrite Urine Negative (Negative); PH 5.5 (5.0-9.0); UMIC TRIGGER UACC YES; Urine Blood Negative (Negative); Urine Ketones Negative (Negative); Urine Protein Negative (Neg-Trace)
[2023-04-08 17:53] LABS: Bacteria Urine None Seen (None Seen); Hyaline Casts Urine 0-2 /LPF (0-2); RBC Urine 0-2 /HPF (0-2); Squamous Epithelial Cell Urine 0-2 /HPF (0-2); WBC Urine 0-5 /HPF (0-5)
== END 2023-04-08 15:52 | disposition home or self-care (01) ==
LOC: HO.HHCL 15:51
PROVIDERS: Visit Provider Internal Medicine Geriatric Medicine
DX: R30.0 Dysuria (principal)
CPT/HCPCS: 81001

== ENCOUNTER 2023-07-06 11:51 | Day surgery (SDC) | payer OTHER, SELFPAY ==
--- NOTE | 2023-07-02 15:03 | HO.ANESPROP2 ---
Documented by User: Janey Kirkland NP 07/02/23 15:03 HPI - Anesthesia Eval Consult details Narrative: 73yo M for Upper Endoscopy and Colonoscopy Anesthesia Pre-Procedure Meds Is the patient on any of the following meds?: GLP1/DPP4 (trulicity) PMFSH Active Problems Active Problems: All Active Problems H. pylori infection (Acute) Anemia (Acute) Cough (Acute) Diabetes (Acute) Dysphagia (Acute) Acid reflux (Acute) Weight loss (Acute) Past Medical History Medical History HTN (hypertension) Diabetes Surgical History Surgical History History of back surgery Social History Social History Household Members: Family Alcohol intake: never Patient Tobacco Use Status: Never used Tobacco Use of substances other than those prescribed or required for medical reasons: No Are you DNR?: No Advance Directives: No Advance Directives Information Provided: Yes Meds Allergies Allergy/AdvReac Type Severity Reaction Status Date / Time No Known Allergies Allergy Verified 02/10/23 14:03 [No Known Allergies*] Home Medications ?Medication ?Instructions ?Recorded ?Confirmed ?Last Taken ?Type buspirone 7.5 mg tablet 7.5 mg PO BID 12/16/22 02/10/23 Unknown History dulaglutide 3 mg/0.5 mL mg subcut 12/16/22 02/10/23 Unknown History subcutaneous pen injector (Trulicity) insulin aspart U-100 100 unit/mL subcut 12/16/22 02/10/23 Unknown History (3 mL) subcutaneous pen (Novolog FlexPen U-100 Insulin aspart) insulin glargine 100 unit/mL (3 unit subcut 12/16/22 02/10/23 Unknown History mL) subcutaneous pen (Lantus Solostar U-100 Insulin) lisinopril 10 mg tablet 10 mg PO DAILY 12/16/22 02/10/23 Unknown History metformin 1,000 mg tablet 1,000 mg PO BID 12/16/22 02/10/23 Unknown History pregabalin 75 mg capsule 75 mg PO DAILY 12/16/22 02/10/23 Unknown History simvastatin 20 mg tablet 20 mg PO BEDTIME 12/16/22 02/10/23 Unknown History Assessment and Plan Assessment Anesthesia Assessment: Chart Reviewed Documented by User: Florence Moss MD 07/06/23 13:07 [facility], [facility] Past Medical History Medical History HTN (hypertension) Diabetes Surgical History Surgical History History of back surgery History of Problems with Anesthesia: No Social History Social History Household Members: Family Alcohol intake: never Patient Tobacco Use Status: Never used Tobacco Use of substances other than those prescribed or required for medical reasons: No Are you DNR?: No Advance Directives: No Advance Directives Information Provided: Yes Meds Allergies Allergy/AdvReac Type Severity Reaction Status Date / Time No Known Allergies Allergy Verified 02/10/23 14:03 [No Known Allergies*] Home Medications ?Medication ?Instructions ?Recorded ?Confirmed ?Last Taken ?Type buspirone 7.5 mg tablet 7.5 mg PO BID 12/16/22 02/10/23 Unknown History dulaglutide 3 mg/0.5 mL mg subcut 12/16/22 02/10/23 Unknown History subcutaneous pen injector (Trulicity) insulin aspart U-100 100 unit/mL subcut 12/16/22 02/10/23 Unknown History (3 mL) subcutaneous pen (Novolog FlexPen U-100 Insulin aspart) insulin glargine 100 unit/mL (3 unit subcut 12/16/22 02/10/23 Unknown History mL) subcutaneous pen (Lantus Solostar U-100 Insulin) lisinopril 10 mg tablet 10 mg PO DAILY 12/16/22 02/10/23 Unknown History metformin 1,000 mg tablet 1,000 mg PO BID 12/16/22 02/10/23 Unknown History pregabalin 75 mg capsule 75 mg PO DAILY 12/16/22 02/10/23 Unknown History simvastatin 20 mg tablet 20 mg PO BEDTIME 12/16/22 02/10/23 Unknown History Exam Airway Mallampati Class: II (edentulous) TM Dist: >3cm Neck ROM: Full Loose/Missing/Broken Teeth: Yes, Upper and Lower Heart: CTA Lungs: RRR Assessment and Plan Assessment Anesthesia Assessment: Anesthesia Plan Discussed Final Anesthetic Review History of Problems with Anesthesia: No NPO: Yes ASA Class: II Final Preanesthetic Review: Meds/Allgs Chart Reviewed, Consent Obtained/Reviewed and Anes Risks/Benef Reviewed Patient Risk: Low Procedure Risk: Intermediate Anesthetic Plan Anesthetic Plan: MAC: Disposition: Standard PACU
[2023-07-06 12:31] VITALS: BMI 21.0
[2023-07-06 13:04] VITALS: BP 139/69; PULSE 78; RESP 16; TEMP 36.6; O2SAT 99
[2023-07-06 13:05] LABS: Glucose, Whole Blood 160 mg/dL (60-115)
[2023-07-06] MEDS: Lactated Ringers 1,000 ML 100 ML IVCONT (13:05)
[2023-07-06] MEDS: Sodium Phosphate,Mono-Dibasic 133 ML ENEMA PR (13:06)
--- NOTE | 2023-07-06 13:48 | MHC.SHP ---
Pre-Procedural Eval Section A - 24 Hr Update-Section A only Date of Service: 07/06/23 Section B - Complete if H&P > 30 days Chief Complaint: bacterial intestinal infections,gerd,anemia Details of Present Illness: dysphagia Relevant Family History (Specify if Yes): No Relevant Social History: None Present Medications: see Short Stay Collaborative assessment Medical History: Significant History (HTN (hypertension) Diabetes ) History of Previous Operations: Relevant previous surgery/procedure and date(s) (istory of back surgery) Allergies: Allergies Allergy/AdvReac Type Severity Reaction Status Date / Time No Known Allergies Allergy Verified 02/10/23 14:03 [No Known Allergies*] H Review of Systems Sugical H&P ROS: Negative: Constitution, Cardiovascular, Respiratory, Neurological, Psychiatric, Hem-Onc, Allergic/Immunologic, Gastrointestinal, Genitourinary, Musculoskeletal, Integumentary, Endocrine and Eyes/Ears/Nose/Throat Exam Surgical H&P Exam: Normal: HEENT, Normal: Heart, Normal: Lungs, Normal: Extremities, Normal: Abdomen, Normal: Skin and Normal: Neurological Plan Diagnosis/Plan: Unchanged I have reviewed the history and physical and performed a pertinent physical examination on my patient. No changes have occurred unless specified. Time Spent With Patient Time: Total time managing care of this patient today ____ minutes.
--- NOTE | 2023-07-06 15:06 | P.OPN-COLO_ITS ---
Colonoscopy Operative Note Operative Note Date of Service: 07/06/23 Narrative: Operative Information Procedure Description: EGD, Colonoscopy Indication: anemia, dysphagia Anesthesia: mac FLEXIBLE TRANSORAL UPPER GASTROINTESTINAL ENDOSCOPY AND COLONOSCOPY PROCEDURE NOTE UPPER ENDOSCOPY Consent: Indications for the procedure and potential complications of bleeding, perforation, reaction to medications and missed diagnosis were discussed with the patient and informed consent was obtained. Instrument: Olympus GIF H 190 J mid size upper endoscope Monitoring: Vital signs and clinical assessment, continuous EKG monitoring, Pulse oximetry, Carbon Dioxide monitoring and blood pressure monitoring were done throughout the procedure. Procedure: The patient was placed in the left lateral decubitis position and pre-procedure medications were administered and a bite block was placed. The endoscope was inserted into the mouth and advanced under direct vision to the third part of duodenum. A careful inspection was made as the upper endoscope was withdrawn including a retroflexed examination of the proximal stomach; Findings and interventions are described below. Findings: Larynx:normal Esophagus: GE junction at 37 cm, diaphragm hiatus at 37 cm, bogginess and erythema at GEJ, bx taken, also from distal and proximal esophagus --balloon dilation done to 20 mm at LEs and 19 mm at UES - no tears seen Stomach: Patchy erythema. Biopsies were obtained. Grade 2 flap valve on retroflexed examination of the cardia. Duodenum: Mild bulbar duodenitis Intervention: Biopsies as noted above, COLONOSCOPY Instrument: Olympus variable stiffness pediatric scope 190L Colonoscopy Monitoring: Vital signs and clinical assessment, continuous EKG monitoring, Pulse oximetry, Carbon Dioxide monitoring and blood pressure monitoring were done throughout the procedure. Colon withdrawal time was 11 minutes. Procedure: The patient was placed in the left lateral decubitis position and pre-procedure medications were administered. After a digital rectal examination of the ano-rectum, the video colonoscope was inserted into the rectum and advanced through the colon to the cecum/TI. The colonoscope was slowly withdrawn in a retrograde panoramic fashion and the colon mucosa was carefully examined including a retroflexed view of the rectum. Findings and interventions are described below. Procedure Difficulty:moderate Findings: Terminal Ileum-normal, Cecum:normal Ascending Colon: 4-5 mm sessile polyps x 2 removed with cold forceps Transverse Colon -normal Descending Colon:normal Sigmoid Colon: normal Rectum: Retroflexion with small internal hemorrhoids, grade I Anorectum - normal Colon preparation: [place] Bowel Preparation Scale Right colon; 2 Transverse colon: 2 Left colon; 2 (0 = Unprepared colon segment with mucosa not seen due to solid stool that cannot be cleared. 1 = Portion of mucosa of the colon segment seen, but other areas of the colon segment not well seen due to staining, residual stool and/or opaque liquid. 2 = Minor amount of residual staining, small fragments of stool and/or opaque liquid, but mucosa of colon segment seen well. 3 = Entire mucosa of colon segment seen well with no residual staining, small fragments of stool or opaque liquid) Impression and Post Procedure Diagnosis: Endoscopy Findings: esophagitis gastritis duodenitis Colonoscopy Findings: colon polyps internal hemorrhoids Plan: Await Pathology results Repeat Colonoscopy in 5-7 years ifd adenomatous polyp, 10 yrs if non adenomatous or earlier if clinically indicated High fiber diet leaflet avoid straining at stool, epsom salts and sitz bath, anusol supps or cream if h pylori pos then treat Above findings were reviewed with the patient and relevant handouts were provided if indicated.
[2023-07-06 15:12] VITALS: BP 106/66; PULSE 84; RESP 16; TEMP 36.6; O2SAT 97
[2023-07-06 15:28] VITALS: BP 131/86; PULSE 76; RESP 18; TEMP 36.6; O2SAT 100
== END 2023-07-06 15:33 | disposition home or self-care (01) ==
PROVIDERS: PCP Internal Medicine Geriatric Medicine; Visit Provider Internal Medicine Gastroenterology
PROC: (CPT 45380; principal; 2023-07-06 14:30)
DX: D64.9 Anemia, unspecified (principal); R13.10 Dysphagia, unspecified; K21.9 Gastro-esophageal reflux disease without esophagitis; R63.4 Abnormal weight loss; D12.3 Benign neoplasm of transverse colon; K63.5 Polyp of colon; K64.0 First degree hemorrhoids; K20.90 Esophagitis, unspecified without bleeding; K29.70 Gastritis, unspecified, without bleeding; K29.80 Duodenitis without bleeding; I10 Essential (primary) hypertension; E11.9 Type 2 diabetes mellitus without complications
CPT/HCPCS: 45380; 43249; 43239; 82947; 88305; 88313; 88342; C1726; J1596; J2704

== ENCOUNTER → 2023-07-06 11:51 | Outpatient (BNV) | payer OTHER, SELFPAY | PROVIDERS: PCP Internal Medicine Geriatric Medicine; Visit Provider Internal Medicine Gastroenterology | DX: D64.9 Anemia, unspecified (principal); R13.10 Dysphagia, unspecified; K29.80 Duodenitis without bleeding; K20.90 Esophagitis, unspecified without bleeding; K63.5 Polyp of colon; K64.0 First degree hemorrhoids | CPT/HCPCS: 43239; 43249; 45380 ==

== ENCOUNTER 2023-07-23 14:01 | Outpatient (AMB) | payer OTHER, SELFPAY ==
--- NOTE | 2023-07-23 14:04 | MHC.OFFVIS ---
Vital Signs 07/23/23 14:07 Height 5 ft 6 in Weight 132 lb 4.438 oz BMI 21.3 BP 137/75 Blood Pressure Location Lt brachial Position Sitting Pulse 80 Intake Visit Reasons: colo results Intake Note: Gonzales presents in the office as a follow up to his colonoscopy. CC: Here for results to his colonoscopy. 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 Gas Pumping Station Helper Name: [id number] Brandie Allergies No Known Allergies [No Known Allergies*] Allergy (Verified 07/23/23 14:04) Medication List - Last Reconciled 07/23/23 by Denise Paniagua PA-C acetaminophen (Tylenol Extra Strength) 500 mg PO Q6H PRN buspirone 7.5 mg PO BID cyclobenzaprine 5 mg PO Q8H PRN 5 days cyclobenzaprine 10 mg PO BEDTIME PRN 10 days empagliflozin (Jardiance) 25 mg PO DAILY insulin aspart U-100 (Novolog FlexPen U-100 Insulin aspart) subcut insulin glargine (Lantus Solostar U-100 Insulin) units subcut latanoprost 0.005% drps ophthalmic (eye) lidocaine 5% (Lidoderm) 1 patch topical DAILY PRN MDD remove after 12 hours lisinopril 10 mg PO DAILY metformin 1,000 mg PO BID naproxen 500 mg PO BID PRN 7 days prednisone 40 mg (2 x 20 mg) PO DAILY 5 days pregabalin 75 mg PO DAILY semaglutide (Ozempic) mg subcut simvastatin 20 mg PO BEDTIME HPI Comments Details: A 73-year-old Gent follows up after recent EGD colonoscopy with Dr. Chavis Acid reflux- he drinks coffee- no etoh - no medication for acid Appetite is good-bowels are normal No issues with hemorrhoid reviewed procedure report path and recommendations-questions answered via blind cleaner to his satisfaction No N/V/D abdominal pain- fever or chills PFSH Medical History HTN (hypertension) Diabetes Surgical History History of esophagogastroduodenoscopy (EGD) Hx of colonoscopy History of back surgery Social History Household Members: Family Alcohol intake: never Patient Tobacco Use Status: Never used Tobacco Review of Systems Const All systems reviewed & are unremarkable except as noted in HPI and below ENT Denies dysphagia Card Denies chest pain and Denies dyspnea Resp Denies dyspnea GI Denies abdominal pain, Denies change in bowel habits, Denies dysphagia, Reports heartburn, Denies nausea and Denies vomiting Physical Exam Vital Signs: Last Vital Signs Pulse 80 07/23/23 14:07 BP 137/75 07/23/23 14:07 BMI result Body Mass Index 21.3 Const General: cooperative, comfortable and no acute distress Nutritional Appearance: thin Orientation/consciousness: patient oriented x3 Limitations: language barrier Resp Effort & Inspection: normal respiratory effort and able to speak in complete sentences Neuro General: patient oriented x3 Psych Appearance: grossly normal and well kempt Mental Status: mental status grossly normal Speech and movement: Normal speech and movement present and Clear speech present Affect: normal affect Attitude: cooperative Thought process: Normal thought process present Thought content: Normal thought content present Results Reviewed Results Reviewed: mpression and Post Procedure Diagnosis: Endoscopy Findings: esophagitis gastritis duodenitis Colonoscopy Findings: colon polyps internal hemorrhoids Plan: Await Pathology results Repeat Colonoscopy in 5-7 years ifd adenomatous polyp, 10 yrs if non adenomatous or earlier if clinically indicated High fiber diet leaflet avoid straining at stool, epsom salts and sitz bath, anusol supps or cream if h pylori pos then treat pls tell pt pre cancerous polyps removed which is good news, adenoma/serrated type, repeat colon in 5-7 years, or earlier if any concerns or new symptoms The upper Gi bx just showed soem acid irritation, should be on PPI adenomas or serrated polyps are benign (noncancerous) growths, but may be precursor lesions to colorectal cancer so it is good that they are removed. Assessment & Plan Assessment & Plan (1) Esophagitis: Code(s): K20.90 - Esophagitis, unspecified without bleeding Category: Medical Plan: pantoprazole 40 mg x 12 wks f/u if sx improved- reduce to pantoprazole 20 mg- (2) Tubular adenoma of colon: Code(s): D12.6 - Benign neoplasm of colon, unspecified Category: Medical Plan: 5 year (3) Hemorrhoids: Comment: no issues Code(s): K64.9 - Unspecified hemorrhoids Category: Medical Plan: avoid strain HFD Plan ppi 5 year repeat-adenoma Medications: New pantoprazole 40 mg (2 x 20 mg) PO ONCE 60 tabs 6RF 30 days Discontinued bisacodyl (Dulcolax (bisacodyl)) take at noon the day before colonoscopy Discontinued Reason: Patient Completed Course 20 mg (4 x 5 mg) PO ONCE 1 day 4 tabs 0RF Patient Instructions: pantoprazole 40 mg Reflux precautions Repeat colon - 5 year for adenoma HFD avoid straining Call with concerns Coding Level of Care Code Est Pt Level 3 (32763) Diagnoses Esophagitis K20.90 Tubular adenoma of colon D12.6 Hemorrhoids K64.9 Time Spent (min) 25 Comment [id number]
[2023-07-23 14:07] VITALS: BP 137/75; PULSE 80; BMI 21.3
== END 2023-07-23 14:41 | disposition home or self-care (01) ==
PROVIDERS: PCP Internal Medicine Geriatric Medicine; Visit Provider Physician Assistant
DX: K20.90 Esophagitis, unspecified without bleeding (principal); D12.6 Benign neoplasm of colon, unspecified; K64.9 Unspecified hemorrhoids
CPT/HCPCS: 99213

== ENCOUNTER → 2023-07-23 14:01 | Outpatient (BNVA) | payer OTHER, SELFPAY | PROVIDERS: PCP Internal Medicine Geriatric Medicine; Visit Provider Physician Assistant | DX: K20.90 Esophagitis, unspecified without bleeding (principal); K64.9 Unspecified hemorrhoids; D12.6 Benign neoplasm of colon, unspecified | CPT/HCPCS: 99212 ==

== ENCOUNTER 2024-02-08 11:10 | Outpatient (REF) | payer OTHER, SELFPAY ==
[2024-02-08 13:11] LABS: MANUAL DIFF FLAG NO
[2024-02-08 13:24] LABS: Basophils Percent Auto 0.2 % (0-2); Eosinophils Percent Auto 0.4 % (0-4); Hematocrit 40.5 % (42.0-52.0); Hemoglobin 13.4 g/dl (14.0-18.0); Imm Gran Abs Auto 0.01 X10*3/uL (0.00-0.03); Imm Gran Pct Auto 0.2 % (0.0-0.4); Lymphocytes Absolute Auto 1.7 X10*3/uL (1.2-4.9); Lymphocytes Percent Auto 33.9 % (20-40); Mean Corpuscular HGB Conc 33.1 g/dl (31.0-36.0); Mean Corpuscular Volume 90.8 fL (80.0-98.0); Mean Platelet Volume 11.2 fL (9.4-12.4); Monocytes Absolute Auto 0.4 X10*3/uL (0.1-1.2); Monocytes Percent Auto 8.1 % (2-11); Neutrophils Absolute Auto 2.8 x10*3/uL (2.0-8.3); Neutrophils Percent Auto 57.2 % (45-73); Platelet Count 230 X10*3/uL (160-400); Red Blood Count 4.46 X10*6/uL (4.60-5.80); White Blood Count 4.9 X10*3/uL (4.8-10.8)
[2024-02-08 14:00] LABS: Alanine Aminotransferase 23 U/L (0-40); Albumin Level 4.2 g/dL (3.5-5.0); Alkaline Phosphatase 54 U/L (39-117); Anion Gap 10 (12-20); Aspartate Amino Transferase 22 U/L (5-37); Bilirubin Total 0.4 mg/dL (0.0-1.0); Blood Urea Nitrogen 17 mg/dL (9-16); Calcium 9.3 mg/dL (8.4-10.2); Carbon Dioxide 31 mmol/L (22-29); Chloride 97 mmol/L (96-108); Cholesterol 139 mg/dL (<200); Estimated Glomerular Filt Rate > 60; Glucose Random 287 mg/dL (60-115); HDL Cholesterol 61 mg/dL (>40); LDL Cholesterol Calculated 68 mg/dL (<100); Potassium 4.1 mmol/L (3.3-5.1); Sodium 134 mmol/L (135-145); Total Protein 6.8 g/dL (6.5-8.0); Triglycerides 50 mg/dL (<150)
[2024-02-08 14:08] LABS: Creatinine Urine 48.91 mg/dL; Microalbumin Urine < 5.0 mg/L
== END 2024-02-08 11:11 | disposition home or self-care (01) ==
LOC: HO.HHCL 11:10
PROVIDERS: Visit Provider Internal Medicine Geriatric Medicine
DX: E11.69 Type 2 diabetes mellitus with other specified complication (principal); F41.9 Anxiety disorder, unspecified; E16.2 Hypoglycemia, unspecified; Z79.4 Long term (current) use of insulin
CPT/HCPCS: 36415; 80053; 80061; 82043; 82570; 85025

== ENCOUNTER 2024-02-16 15:16 | Outpatient (AMB) | payer OTHER, SELFPAY ==
--- NOTE | 2024-02-16 15:27 | MHC.OFFVIS ---
Vital Signs 02/16/24 15:28 Height 5 ft 6 in Weight 134 lb 14.766 oz BMI 21.8 BP 135/77 Blood Pressure Location Rt brachial Position Sitting Pulse 97 Intake Visit Reasons: Esophagitis Intake Note: Gonzales presents in office today in follow up of esophagitis. CC: Patient reports that he's always hungry, and abdominal bloating. Denies other GI symptoms today. 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 He has been followed by her for GERD. The primary care provider is Martin junior at [facility]. PMX Hypertension Diabetes Anemia Hemorrhoids History of H pylori infection GERD History of tubular adenoma * SURGICAL HISTORY Esophagogastroduodenoscopy-07/2023, her son Colonoscopy-07/2023, has son * ALLERGIES: NKDA * [employer] LABS: Laboratory Tests 02/08/24 11:12 WBC 4.9 Hgb 13.4 L Hct 40.5 L MCV 90.8 MCH 30.0 Plt Count 230 Sodium 134 L Estimated GFR > 60 Random Glucose 287 H Total Bilirubin 0.4 AST 22 ALT 23 Alkaline Phosphatase 54 NOTE FROM THE LAST VISIT WITH JULIO trinh 73-year-old Gent followed up for KATHRIN for H pylori-vague symptoms dysphagia however scheduled for barium study in a couple of weeks. Meanwhile he will monitor his diet-be sure he is eating sufficient calories per day Eat slowly chew his food well Will call with results of barium study He is scheduled for EGD and a colonoscopy Review procedure, rare risks, need for escorted due to anesthesia Reviewed medications omit metformin evening before procedure as well as evening insulin half dose only. Morning of procedures no diabetes medications. Encouraged to call with questions or concerns Appreciate the opportunity assist in the care this patient Patient needs supervisor hand silvering EGD/COLONOSCOPY 07/2023 SUMMARY: Dilation was done for dysphagia and there was bogginess the GE junction with mild duodenitis to medium tubular adenomas were removed. One polyp was a tubular adenoma the other was hyperplastic. Biopsies of the esophagus showed no metaplasia or dysplasia the rest was all within normal limits, it was negative for H pylori. TODAY'S VISIT [place] #v NO INTERPRETERS AVAILABLE. He says that his GERD continues to be controlled on his pantoprazole. I note that he was recently started on Ozempic, he says he used to be on Trulicity and this has been over the past 3 mos. He denies having any problems with CIC currently, but he does have a feeling of discomfort in the gastric area with eating. However, despite the Ozempic he feels like he is always hungry, and I would eat every hour if I could. With further discussion he says most of the discomfort is right on the sternum and it is well above the xiphoid to the GE junction area. He is going to be seeing his primary care doctor soon and I encouraged him to do so since this could be a somewhat atypical presentation for GERD. He denies any trauma to the area. Says he walks a couple of miles every day and has no shortness of breath or increase in chest discomfort during this. He is a somewhat brittle diabetic and he says he will have diarrhea about once a week but never constipation. He admits that his eating tends to be irregular because he lives alone and he does not follow the best of dietary guidelines although he does back all of his meals rather than do fried or fatty foods. I think let we will try adding famotidine in the evening along with his pantoprazole since the only real evidence we have of any pathology in the area with some bogginess at the gastroesophageal junction in his possible that this is an atypical presentation of GERD along with the slowing of his usual gastric emptying. However, it is curious that he continues to experience hunger under the circumstances. Denies any nausea or vomiting. There is no other new medications over the past 3 months, which is when the symptoms started, except the Ozempic. Will also get an ultrasound to see if there is any gallbladder pathology and some basic lab work including a lipase to see if this any reason to suspect pancreatitis. Return office visit in 8 weeks. [facility] Medical History (Updated 02/16/24 @ 16:07 by FEMI Ayala) Acid reflux Dysphagia Esophagitis H. pylori infection HTN (hypertension) Diabetes Surgical History History of esophagogastroduodenoscopy (EGD) Hx of colonoscopy History of back surgery Social History Household Members: Family Alcohol intake: never Patient Tobacco Use Status: Never used Tobacco Review of Systems Const Denies fatigue, Denies fever(s), Denies night sweats, Denies poor appetite and Denies weight loss Eyes Details: glasses Reports requires corrective lenses ENT Reports Normal hearing present, Denies dental pain, Denies dysphagia, Denies hearing loss, Denies mouth pain, Denies odynophagia, Denies throat swelling, Denies tongue swelling and Reports other (Dentition adequate) Card Reports chest pain Resp Reports no additional complaints GI Details: Reports abdominal pain, Denies melena, Denies bloating, Denies hematochezia, Denies constipation, Denies GI cramping, Denies dysphagia, Denies excessive flatus, Denies early satiety, Reports heartburn, Denies diarrhea, Denies nausea, Denies odynophagia, Denies vomiting and Denies hematemesis Skin/Breast Denies pruritus, Denies lesions, Denies rash and Denies jaundice Neuro Reports Normal hearing present and Denies Abnormal speech present Endo Denies fatigue Aller/Immun Denies throat swelling and Denies tongue swelling Physical Exam Vital Signs: BMI result Body Mass Index 21.8 Const General: cooperative, no acute distress, well developed and well groomed Nutritional Appearance: well nourished and thin Orientation/consciousness: oriented to person, oriented to place and oriented to time Limitations: language barrier HEENT Head: Yes normocephalic and Yes atraumatic Eyes General: appearance normal, both eyes and all related structures Pupils: Equal, round and reactive pupils present Neck Neck: Yes normal visual inspection and Yes no lymphadenopathy Thyroid: Thyroid normal Chest Chest palpation & inspection: no localized rib tenderness and tenderness sternum (Low sternum but well above the xiphoid GE junction area) Resp Effort & Inspection: normal respiratory effort and able to speak in complete sentences Auscultation: clear to auscultation bilaterally Cardio Rate: regular rate Rhythm: regular rhythm Heart sounds: Normal, physiologic split S2 sound present Peripheral pulses: radial pulses present and posterior tibial pulses present GI Inspection: No distended and No Abdominal panniculus present Palpation (GI): Soft to palpation, nontender, no guarding, not rigid and No hepatosplenomegaly present Percussion: Yes normal to percussion Auscultation: normal bowel sounds Rectal Exam - Male: Yes deferred Skin General skin exam: no rashes or lesions noted, turgor normal, skin not dry, no jaundice, No spider nevi and no striae Rashes: no rashes Nails: normal Neuro General: oriented to person, oriented to place and oriented to time Cranial nerves: Yes Equal, round and reactive pupils present and Yes Normal hearing present Speech: No Abnormal speech present Extrem General: Yes normal to inspection, No clubbing, No cyanosis and No edema Psych Appearance: grossly normal and well kempt Mental Status: mental status grossly normal Speech and movement: Normal speech and movement present Affect: normal affect Attitude: cooperative Thought process: Normal thought process present and not confabulating Thought content: Normal thought content present Insight: Limited insight present (Psych) Judgement: Limited judgement present (Psych) Assessment & Plan Assessment & Plan (1) GERD (gastroesophageal reflux disease): Code(s): K21.9 - Gastro-esophageal reflux disease without esophagitis Category: Medical (2) Upper abdominal pain: Code(s): R10.10 - Upper abdominal pain, unspecified Category: Medical Plan [place] #v NO INTERPRETERS AVAILABLE. He says that his GERD continues to be controlled on his pantoprazole. I note that he was recently started on Ozempic, he says he used to be on Trulicity and this has been over the past 3 mos. He denies having any problems with CIC currently, but he does have a feeling of discomfort in the gastric area with eating. However, despite the Ozempic he feels like he is always hungry, and I would eat every hour if I could. With further discussion he says most of the discomfort is right on the sternum and it is well above the xiphoid to the GE junction area. He is going to be seeing his primary care doctor soon and I encouraged him to do so since this could be a somewhat atypical presentation for GERD. He denies any trauma to the area. Says he walks a couple of miles every day and has no shortness of breath or increase in chest discomfort during this. He is a somewhat brittle diabetic and he says he will have diarrhea about once a week but never constipation. He admits that his eating tends to be irregular because he lives alone and he does not follow the best of dietary guidelines although he does back all of his meals rather than do fried or fatty foods. I think let we will try adding famotidine in the evening along with his pantoprazole since the only real evidence we have of any pathology in the area with some bogginess at the gastroesophageal junction in his possible that this is an atypical presentation of GERD along with the slowing of his usual gastric emptying. However, it is curious that he continues to experience hunger under the circumstances. Denies any nausea or vomiting. There is no other new medications over the past 3 months, which is when the symptoms started, except the Ozempic. Will also get an ultrasound to see if there is any gallbladder pathology and some basic lab work including a lipase to see if this any reason to suspect pancreatitis. Return office visit in 8 weeks Orders: Orders Comprehensive Met. Panel Today R10.10 - Upper abdominal pain, unspecified Complete Blood Count Auto Diff Today R10.10 - Upper abdominal pain, unspecified Lipase Today R10.10 - Upper abdominal pain, unspecified US abdomen complete Today R10.10 - Upper abdominal pain, unspecified Medications: New famotidine (Pepcid) 40 mg PO BEDTIME 30 tabs 6RF K21.9 - Gastro-esophageal reflux disease without esophagitis, R10.10 - Upper abdominal pain, unspecified Refilled pantoprazole 40 mg (2 x 20 mg) PO DAILY 180 tabs 2RF Coding Level of Care Code Est Pt Level 4 (21860) Diagnoses GERD (gastroesophageal reflux disease) K21.9 Upper abdominal pain R10.10 Time Spent (min) 37
[2024-02-16 15:28] VITALS: BP 135/77; PULSE 97; BMI 21.8
== END 2024-02-16 16:37 | disposition home or self-care (01) ==
PROVIDERS: PCP Internal Medicine Geriatric Medicine; Visit Provider Nurse Practitioner
DX: K21.9 Gastro-esophageal reflux disease without esophagitis (principal); R10.10 Upper abdominal pain, unspecified
CPT/HCPCS: 99214

== ENCOUNTER → 2024-02-16 15:16 | Outpatient (BNVA) | payer OTHER, SELFPAY | PROVIDERS: PCP Internal Medicine Geriatric Medicine; Visit Provider Nurse Practitioner | DX: K21.9 Gastro-esophageal reflux disease without esophagitis (principal); R10.10 Upper abdominal pain, unspecified | CPT/HCPCS: 99212 ==

== ENCOUNTER 2024-02-22 13:43 | Outpatient (REF) | payer OTHER, SELFPAY ==
[2024-02-22 13:57] LABS: MANUAL DIFF FLAG NO
[2024-02-22 15:38] LABS: Basophils Percent Auto 0.3 % (0-2); Eosinophils Percent Auto 0.3 % (0-4); Hematocrit 42.2 % (42.0-52.0); Imm Gran Abs Auto 0.02 X10*3/uL (0.00-0.03); Imm Gran Pct Auto 0.3 % (0.0-0.4); Lymphocytes Absolute Auto 1.7 X10*3/uL (1.2-4.9); Lymphocytes Percent Auto 27.5 % (20-40); Mean Corpuscular HGB Conc 33.2 g/dl (31.0-36.0); Mean Corpuscular Hemoglobin 30.2 pg (27.0-33.0); Mean Corpuscular Volume 91.1 fL (80.0-98.0); Mean Platelet Volume 10.9 fL (9.4-12.4); Monocytes Absolute Auto 0.6 X10*3/uL (0.1-1.2); Monocytes Percent Auto 8.9 % (2-11); Neutrophils Percent Auto 62.7 % (45-73); Platelet Count 243 X10*3/uL (160-400); Red Blood Count 4.63 X10*6/uL (4.60-5.80); White Blood Count 6.3 X10*3/uL (4.8-10.8)
[2024-02-22 17:56] LABS: Alanine Aminotransferase 28 U/L (0-40); Albumin Level 4.4 g/dL (3.5-5.0); Alkaline Phosphatase 60 U/L (39-117); Anion Gap 16 (12-20); Aspartate Amino Transferase 23 U/L (5-37); Bilirubin Total 0.3 mg/dL (0.0-1.0); Blood Urea Nitrogen 17 mg/dL (9-16); Calcium 9.6 mg/dL (8.4-10.2); Carbon Dioxide 30 mmol/L (22-29); Chloride 101 mmol/L (96-108); Estimated Glomerular Filt Rate > 60; Glucose Random 127 mg/dL (60-115); Lipase 28 U/L (8-78); Potassium 4.2 mmol/L (3.3-5.1); Sodium 143 mmol/L (135-145); Total Protein 7.2 g/dL (6.5-8.0)
== END 2024-02-22 13:44 | disposition home or self-care (01) ==
LOC: HO.LAB 13:43
PROVIDERS: PCP Internal Medicine Geriatric Medicine; Visit Provider Nurse Practitioner
DX: R10.10 Upper abdominal pain, unspecified (principal)
CPT/HCPCS: 36415; 80053; 83690; 85025

== ENCOUNTER 2024-03-03 08:10 | Outpatient (REF) | payer OTHER, SELFPAY ==
--- NOTE | ~2024-03-03 | US_ITS ---
CLINICAL HISTORY: R10.10 - Upper abdominal pain, unspecified US abdomen complete Comparison: None Findings: The visualized pancreas is normal. The aorta and inferior vena cava are normal caliber. The liver is normal in size and echotexture. There is no intrahepatic bile duct dilatation. The common duct is 2.3 mm in diameter. The gallbladder is normal. There is no sonographic Long sign. The main portal vein is antegrade. The right kidney is 9.6 cm in length. The left kidney is 9.8 cm in length. 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 The spleen is normal. No ascites. IMPRESSION: 1. No acute findings. This document has been electronically signed by: Usman Macario MD on 03/04/2024 20:01:54
== END 2024-03-03 08:11 | disposition home or self-care (01) ==
LOC: HO.US 08:10
PROVIDERS: PCP Internal Medicine Geriatric Medicine; Visit Provider Nurse Practitioner
DX: R10.10 Upper abdominal pain, unspecified (principal)
CPT/HCPCS: 76700

== ENCOUNTER → 2024-03-03 08:11 | Outpatient (BNV) | payer OTHER, SELFPAY | PROVIDERS: PCP Internal Medicine Geriatric Medicine; Visit Provider Specialist | DX: R10.10 Upper abdominal pain, unspecified (principal) | CPT/HCPCS: 76700 ==

== ENCOUNTER 2024-06-23 12:45 | Outpatient (AMB) | payer OTHER, SELFPAY ==
--- NOTE | 2024-06-23 12:53 | A.OFFVIS_ITS ---
Vital Signs 06/23/24 13:10 Height 5 ft 6 in Weight 138 lb BMI 22.3 BP 118/62 Blood Pressure Location Rt brachial Position Sitting Pulse 92 Pulse Source Pulse Oximeter Pulse Oximetry (%) 97 Oxygen Delivery Method Room Air Intake Visit Reasons: Follow up labs and US R/S from 04/22/24 Intake Note: ESTABLISHED PATIENT for mgmt of GERD w/ esophagitis hx. Labs and imaging done. Chief Complaint; Pt denies any GI sx or concerns. Medications working well per pt. Field Seismologist Required: Yes Field Seismologist Services: Field Seismologist Present Field Seismologist Name: [facility] [place] Siobhan Angel [id number] Information Interpreted: clinical only Accompanied by: Self / Same As Patient Allergies No Known Allergies [No Known Allergies*] Allergy (Verified 06/23/24 13:05) HPI HPI Follow up labs and US R/S from 04/22/24: Details: Assessment & Plan (1) GERD (gastroesophageal reflux disease): Code(s): K21.9 - Gastro-esophageal reflux disease without esophagitis Category: Medical (2) Upper abdominal pain: Code(s): R10.10 - Upper abdominal pain, unspecified Category: Medical Plan [place] #v NO INTERPRETERS AVAILABLE. He says that his GERD continues to be controlled on his pantoprazole. I note that he was recently started on Ozempic, he says he used to be on Trulicity and this has been over the past 3 mos. He denies having any problems with CIC currently, but he does have a feeling of discomfort in the gastric area with eating. However, despite the Ozempic he feels like he is always hungry, and I would eat every hour if I could. With further discussion he says most of the discomfort is right on the sternum and it is well above the xiphoid to the GE junction area. He is going to be seeing his primary care doctor soon and I encouraged him to do so since this could be a somewhat atypical presentation for GERD. He denies any trauma to the area. Says he walks a couple of miles every day and has no shortness of breath or increase in chest discomfort during this. He is a somewhat brittle diabetic and he says he will have diarrhea about once a week but never constipation. He admits that his eating tends to be irregular because he lives alone and he does not follow the best of dietary guidelines although he does back all of his meals rather than do fried or fatty foods. I think let we will try adding famotidine in the evening along with his panto prazole since the only real evidence we have of any pathology in the area with some bogginess at the gastroesophageal junction in his possible that this is an atypical presentation of GERD along with the slowing of his usual gastric emptying. However, it is curious that he continues to experience hunger under the circumstances. Denies any nausea or vomiting. There is no other new medications over the past 3 months, which is when the symptoms started, except the Ozempic. Will also get an ultrasound to see if there is any gallbladder pathology and some basic lab work including a lipase to see if this any reason to suspect pancreatitis. Return office visit in 8 weeks Orders: Orders Comprehensive Met. Panel Today R10.10 - Upper abdominal pain, unspecified Complete Blood Count Auto Diff Today R10.10 - Upper abdominal pain, unspecified Lipase Today R10.10 - Upper abdominal pain, unspecified US abdomen complete Today R10.10 - Upper abdominal pain, unspecified Medications: New famotidine (Pepcid) 40 mg PO BEDTIME 30 tabs 6RF K21.9 - Gastro-esophageal reflux disease without esophagitis, R10.10 - Upper abdominal pain, unspecified Refilled pantoprazole 40 mg (2 x 20 mg) PO DAILY 180 tabs 2RF LABS: Laboratory Tests 02/22/24 13:54 WBC 6.3 Hgb 14.0 Hct 42.2 Plt Count 243 Estimated GFR > 60 Total Bilirubin 0.3 AST 23 ALT 28 Alkaline Phosphatase 60 Lipase 28 ULTRASOUND OF THE ABDOMEN 03/04/24 Findings: The visualized pancreas is normal. The aorta and inferior vena cava are normal caliber. The liver is normal in size and echotexture. There is no intrahepatic bile duct dilatation. The common duct is 2.3 mm in diameter. The gallbladder is normal. There is no sonographic Long sign. The main portal vein is antegrade. The right kidney is 9.6 cm in length. The left kidney is 9.8 cm in length. 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 The spleen is normal. No ascites. IMPRESSION: 1. No acute findings. TODAY'S VISIT [place] #Alyssa Live With the increase/addition of famotidine qhs to his am pantroprazole his GI sx and hunger resolved. He continues to use Ozempic, and he has actually gained some weight, which, in his case, is good. Now his most pressing health concern is his anxiety. He feels it is controlled because he is a strong person, but he has left it untreated for many years and he is fearing all of this is catching up to him. I think his idea to see his psychiatrist is very ding. ROV 6 mos. [facility] Medical History (Updated 02/16/24 @ 16:07 by FEMI Ayala) Acid reflux Dysphagia Esophagitis H. pylori infection HTN (hypertension) Diabetes Surgical History History of esophagogastroduodenoscopy (EGD) Hx of colonoscopy History of back surgery Social History Household Members: Family Alcohol intake: never Patient Tobacco Use Status: Never used Tobacco Review of Systems Const Denies fatigue, Denies fever(s), Denies night sweats, Denies poor appetite and Denies weight loss Eyes Details: glasses Reports requires corrective lenses ENT Reports Normal hearing present, Denies dental pain, Denies dysphagia, Denies hearing loss, Denies mouth pain, Denies odynophagia, Denies throat swelling, Denies tongue swelling and Reports other (Dentition adequate) Card Reports no additional complaints Resp Reports no additional complaints GI Details: Denies abdominal pain, Denies melena, Denies bloating, Denies hematochezia, Denies constipation, Denies GI cramping, Denies dysphagia, Denies excessive flatus, Denies early satiety, Reports dyspepsia, Reports heartburn, Denies diarrhea, Denies nausea, Denies odynophagia, Denies vomiting and Denies hematemesis Skin/Breast Denies pruritus, Denies lesions, Denies rash and Denies jaundice Neuro Reports Normal hearing present and Denies Abnormal speech present Endo Denies fatigue Aller/Immun Denies throat swelling and Denies tongue swelling Physical Exam Const General: cooperative, no acute distress, well developed and well groomed Nutritional Appearance: average body habitus and well nourished Orientation/consciousness: oriented to person, oriented to place and oriented to time Limitations: language barrier HEENT Head: Yes normocephalic and Yes atraumatic Eyes General: appearance normal, both eyes and all related structures Pupils: Equal, round and reactive pupils present Neck Neck: Yes normal visual inspection and Yes no lymphadenopathy Thyroid: Thyroid normal Resp Effort & Inspection: normal respiratory effort and able to speak in complete sentences Auscultation: clear to auscultation bilaterally Cardio Rate: regular rate Rhythm: regular rhythm Heart sounds: Normal, physiologic split S2 sound present Peripheral pulses: radial pulses present and posterior tibial pulses present GI Inspection: No distended and No Abdominal panniculus present Palpation (GI): Soft to palpation, nontender, no guarding, not rigid and No hepatosplenomegaly present Percussion: Yes normal to percussion Auscultation: normal bowel sounds Rectal Exam - Male: Yes deferred Skin General skin exam: no rashes or lesions noted, turgor normal, skin not dry, no jaundice, No spider nevi and no striae Rashes: no rashes Nails: normal Neuro General: oriented to person, oriented to place and oriented to time Cranial nerves: Yes Equal, round and reactive pupils present and Yes Normal hearing present Speech: No Abnormal speech present Extrem General: Yes normal to inspection, No clubbing, No cyanosis and No edema Psych Appearance: grossly normal and well kempt Mental Status: mental status grossly normal Speech and movement: Normal speech and movement present Affect: normal affect Attitude: cooperative Thought process: Normal thought process present and not confabulating Thought content: Normal thought content present Insight: Limited insight present (Psych) Judgement: Limited judgement present (Psych) Assessment & Plan Assessment & Plan (1) GERD (gastroesophageal reflux disease): Code(s): K21.9 - Gastro-esophageal reflux disease without esophagitis Category: Medical (2) Upper abdominal pain: Code(s): R10.10 - Upper abdominal pain, unspecified Category: Medical Plan [place] #Alyssa Live With the increase/addition of famotidine qhs to his am pantroprazole his GI sx and hunger resolved. He continues to use Ozempic, and he has actually gained some weight, which, in his case, is good. Now his most pressing health concern is his anxiety. He feels it is controlled because he is a strong person, but he has left it untreated for many years and he is fearing all of this is catching up to him. I think his idea to see his psychiatrist is very ding. ROV 6 mos. Coding Level of Care Code Est Pt Level 3 (39506) Diagnoses GERD (gastroesophageal reflux disease) K21.9 Upper abdominal pain R10.10
[2024-06-23 13:10] VITALS: BP 118/62; PULSE 92; O2SAT 97; BMI 22.3
--- OUTSIDE RECORDS SUMMARY | 2024-06-23 15:01 | XMS_ITS | Encounter Summary ---
Author Organization [facility] Address [address] [place] [address] Care Team Providers Care Reactor Service Operator Name Role Phone Name, Martin MICHAEL Primary Care Provider [phone] Asha Lowery PharmD Unavailable [phone] Reason for Visit * Reason Comments Med Refill Encounter Details Date Type Department Care Team ([facility] st Contact Info) Description 02/12/2023 Refill [facility] MEDICINE [address], [place] [phone] Name, MD Martin [address] [place] [address] Diabetes mellitus type 2 with complications ([facility]/HCC) Social History Tobacco Use Types Packs/Day Years Used Date Smoking Tobacco: Never Smokeless Tobacco: Never Alcohol Use Standard Drinks/Week Comments Never 0 (1 standard drink = 0.6 oz pur e alcohol) Depression Answer Date Recorded Patient Health Questionnaire-9 Score 20 11/25/2022 Housing Stability Answer Date Recorded What is your housing situation today? I have feliciano turner 12/15/[address] you li ve. Do you have problems with any of the following? None of the above 12/15/2022 Food Insecurity Answer Date Recorded Within the past 12 months, y ou worried that your food would run out before you got money to buy more: Never True 12/15/2022 Within the past 12 months,th e food you bought just didn't last and you didn't have enough money to get more: Never True Transportation Answer Date Recorded In the past 12 months, has l ack of transportation kept you from medical appts, meetings, work or from getting things needed for daily living? No 12/15/2022 Utilities Answer Date Recorded In the past 12 months, has t he electric, gas, oil or water company threatened to shut off services in your home? No 12/15/2022 Depression Answer Date Recorded Patient Health Questionnaire-2 Score 6 11/25/2022 Sex and Gender Information Value Date Recorded Sex Assigned at Male 12/30/2021 10:33 AM EDT Legal Sex Male 10:33 AM EDT Gender Identity Male 12/30/2021 10:33 AM EDT Sexual Orientation Straight 12/30/2021 10 :33 AM EDT documented as of this encounter Plan of Treatment Not on file documented as of this encounter Goals Goal Patient Goal Type Associated Problems Recent Progress Patient-Stated? Author Patient will adhere to medication regimen General No Asha Lowery PharmBrandyn Hemoglobin A1c < 7.5 Result Component 8.6( 5 2:36 PM EDT) No Asha Lowery PharmD Record your blood sugar as directed Result Component No Asha Lowery PharmD Note: Use CGM, ensuring sensor is scanned at least once every 8 hours to capture 24H data. Check BG manually, as directed. documented as of this encounter Visit Diagnoses Diagnosis Diabetes mellitus type 2 with complications (CMS/HCC) documented in this encounter Additional Health Concerns Assessment Noted Time PHQ-9 Depression Total Score: 20 023 12:12 PM EDT documented as of this encounter Care Teams Reactor Service Operator Relationship Specialty Start Date End Date Name, MD Martin [address] [place] [address] PCP - General Family Medicine 03/02/18 Asha Lowery PharmD [address] [place] [address] Pharmacist Internal Medicine 06/27/22 documented as of this encounter
--- OUTSIDE RECORDS SUMMARY | 2024-06-23 15:01 | XMS_ITS | Clinical Summary ---
Author Organization [employer] Address [address] [facility] [facility] [address] [place] [address] Care Team Providers Care Stock Sheets Cleaner Inspector Name Role Phone Name, Martin MICHAEL Primary Care Provider [phone] Asha Lowery PharmD Unavailable [phone] Allergies No known active allergies Medications * This document contains information received from the source organization and may not represent a complete record from that organization. Polyethyl Glycol-Propyl Glycol 0.4-0.3 % solution Place 2 drops in each eye 2-3 times per day as needed 021 Active Continuous Blood Gluc Electric Shovel Operator (FreeStyle Jermaine reader) deviceIndication s:Diabetes mellitus type 2 with complications (CMS/HCC),Hypogl ycemia Inject under the skin in the morning. 1 each 023 Active Restasis 0.05 % ophthalmic emulsion Administer 1 drop into both eyes 2 times daily. 023 Active Multiple Vitamins-Mineral s (Centrum Silver 50+Men) tablet Take 1 tablet by mouth Once daily. OTC Active magnesium 500 MG tablet Take 1 tablet by mouth Once daily. OTC for constipation per patient report Active glucose 4 g chewable tabletIndication s:Diabetes mellitus type 2 with complications (CMS/HCC) Chew 4 tablets as needed & as directed for low blood sugar (<70 mg/dL) 20 tablet 11 023 Active bismuth subsalicylate (Pepto Bismol) 262 MG chewable tablet Chew 2 tablets 4 times daily. 023 Active glucose blood (FREESTYLE LITE) test strip USE 1 BY TO SKIN ROUTE 3 TIMES EVERY DAY 100 strip 11 023 Active FreeStyle lancets INJECT 1 BY SUBCUTANEOUS ROUTE 3 TIMES EVERY DAY 100 each 11 024 Active semaglutide (Ozempic, 1 MG/DOSE,) 4 MG/3ML solution pen-injectorIndi cations:Type 2 diabetes mellitus with other specified complication, with long-term current use of insulin ([facility]) Inject 1 mg under the skin 1 (one) time per week. 1 each 024 Active pantoprazole (ProtoNix) 20 MG EC tablet 024 Active empagliflozin (Jardiance) 25 MGIndications:Ty pe 2 diabetes mellitus with other specified complication, unspecified whether termite control service representative insulin use ([facility]) Take 1 tablet (25 mg) by mouth Once per day. 30 tablet Active pioglitazone (Actos) 15 MG tablet Take 1 tablet (15 mg) by mouth Once per day. 30 tablet 024 2024 Active metFORMIN (Glucophage) 1000 MG tabletIndication s:Type 2 diabetes mellitus with other specified complication, unspecified whether termite control service representative insulin use ([facility]) TOME NERY TABLETA (1000 MG) POR VIA ORAL CON EL DESAYUNO AND WITH MILES 180 tablet 1 024 Active Lumigan 0.01 % ophthalmic solution 024 Active lisinopril 10 MG tablet TAKE 1 TABLET BY MOUTH EVERY DAY 90 tablet 1 024 Active BD Pen Needle Karli 2nd Gen 32G X 4 MM miscIndications: Type 2 diabetes mellitus with other specified complication, unspecified whether termite control service representative insulin use ([facility]) USE DIRECTED 4 TIMES DAILY 200 each 5 024 Active pregabalin (Lyrica) 75 MG capsuleIndicatio ns:Chronic pain syndrome TAKE 1 CAPSULE BY MOUTH AT BEDTIME 30 capsule 1 025 Active Continuous Glucose Sensor (FreeStyle Jermaine 2 Sensor) miscIndications: Diabetes mellitus type 2 with complications ([facility]) USE DIRECTED TO TEST BLOOD SUGAR CHANGE EVERY 14 DAYS 2 each 025 Active simvastatin (Zocor) 20 MG tabletIndication s:Essential hypertension TAKE 1 TABLET BY MOUTH EVERY DAY IN THE EVENING 90 tablet 3 025 Active sertraline (Zoloft) 50 MG tablet Take 1 tablet (50 mg) by mouth Once per day. 30 tablet 3 025 2024 Active busPIRone (Buspar) 10 MG tablet Take 1 tablet (10 mg) by mouth 2 times daily. 60 tablet 11 025 2025 Active insulin glargine (Lantus SoloStar) 100 UNIT/ML penIndications:T ype 2 diabetes mellitus with other specified complication, with long-term current use of insulin ([facility]) Inject 18 Units under the skin in the morning. 15 mL 1 025 Active insulin aspart (NovoLOG FLEXPEN) 100 UNIT/ML penIndications:T ype 2 diabetes mellitus with other specified complication, with long-term current use of insulin (CMS/HCC) Inject 10 units subQ with breakfast & 4 units subQ with dinner 10 mL 3 025 Active insulin aspart (NovoLOG FLEXPEN) 100 UNIT/ML penIndications:T ype 2 diabetes mellitus with other specified complication, with long-term current use of insulin (CMS/HCC) Inject 10 units subQ with breakfast & 4 units subQ with dinner 024 2024 Discontinued(R eorder (will not trigger notification to Pharmacy)) sertraline (Zoloft) 50 MG tablet TAKE 1/2 TABLET BY MOUTH ONCE DAILY 45 tablet 1 025 2024 Discontinued(D ose adjustment) Lantus SoloStar 100 UNIT/ML penIndications:T ype 2 diabetes mellitus with other specified complication, with long-term current use of insulin ([facility]) INJECT 18 UNITS UNDER THE SKIN IN THE MORNING. 15 mL 1 025 2024 Discontinued(R eorder (will not trigger notification to Pharmacy)) Active Problems Problem Noted Date Diagnosed Date Anxiety disorder, unspecified 12/21/2023 Housing problems 12/21/2023 Uncomplicated bereavement 12/05/2022 Assessment & Plan (12/09/2022 4:14 PM EDT): Patient with symptoms of depression and grief in the context of losing his sister to cancer 8 months ago. No risk for self-harm, SI or HI. Reason for visit was to assess symptoms and offer referral status. Plan is to be assigned with a therapist from [facility] ([phone]). Referral placed on 11/24. Recommended incorporating coping skills into his daily routine. At this time Gonzales Flannery meets criteria for Visit Diagnoses: Problem List Items Addressed This Visit Other Depression, unspecified Uncomplicated bereavement Patient ready to address current needs Yes Strengths include cultural identity and motivation to change PLAN: 1. Follow up with [facility]: Not recommended for follow-up 2. Patient goal is to start individual therapy and accept her sister's . 3. Behavioral Recommendations a. OP individual therapy referral b. Incorporate self-care and mindfulness into daily routine c. Follow-up with clinician if needed Depression, unspecified 11/20/2022 Assessment & Plan (12/09/2022 4:14 PM EDT): Patient with symptoms of depression and grief in the context of losing his sister to cancer 8 months ago. No risk for self-harm, SI or HI. Reason for visit was to assess symptoms and offer referral status. Plan is to be assigned with a therapist from [facility] ([phone]). Referral placed on 11/24. Recommended incorporating coping skills into his daily routine. At this time Gonzales Flannery meets criteria for Visit Diagnoses: Problem List Items Addressed This Visit Other Depression, unspecified Uncomplicated bereavement Patient ready to address current needs Yes Strengths include cultural identity and motivation to change PLAN: 1. Follow up with [facility]: Not recommended for follow-up 2. Patient goal is to start individual therapy and accept her sister's . 3. Behavioral Recommendations a. OP individual therapy referral b. Incorporate self-care and mindfulness into daily routine c. Follow-up with clinician if needed Assessment & Plan (11/25/2022 2:02 PM EDT): Patient with symptoms of anhedonia, hopelessness, sleep disturbance, fatigued, poor appetite, feelings of guilt, difficulty concentrating and restlessness, nervousness, over-worrying, trouble relaxing, restlessness, irritability and fearfulness. Symptoms occur nearly everyday and have been present for the last year leading to a severe impact on social and occupational functioning. Symptoms presented in the context of recent passing of his sister due to cancer, severe depression and difficult family relationships. Patient will benefit from receiving OP individual therapy and incorporating coping skills into his daily routine. At this time Gonzales Flannery meets criteria for Visit Diagnoses: Problem List Items Addressed This Visit Other Severe episode of recurrent major depressive disorder, without psychotic features ([facility]/HCC) - Primary Adjustment disorder with mixed anxiety and depressed mood Relevant Orders Referral to Behavioral Health Patient ready to address current needs Yes Strengths include cultural identity and willingness to change. PLAN: 1. Follow up with [facility]: Not recommended for follow-up 2. Patient goal is to start individual therapy and accept the passing of his sister 3. Behavioral Recommendations a. Referral for OP individual therapy b. Follow-up with PCP to do lab work and exams c. Coping skills into daily routine to decrease depressive symptoms Bilateral cataracts 02/19/2022 Opioid dependence in remission 02/19/2022 Ectropion of both eyes 02/19/2022 Diabetic polyneuropathy 06/09/2017 Type 2 diabetes mellitus 06/09/2017 Essential hypertension 06/09/2017 Encounters Date Type Department Care Team Description 06/23/2024 2:30 PM EDT Office Visit [facility] [address] [place] [address] Martin Gomez MD Type 2 diabetes mellitus with other specified complication, unspecified whether fdc insulin use ([facility]) (Primary Dx); Depression with anxiety; Type 2 diabetes mellitus with other specified complication, with long-term current use of insulin ([facility]) 06/23/2024 Travel 06/16/2024 Telephone [facility] [address] [place] [address] Km Zhang [place] appt change 05/11/2024 Refill [facility] [address] [place] [address] Martin Gomez MD 05/10/2024 Refill [facility] [address] [place] [address] Martin Gomez MD Essential hypertension 04/25/2024 Refill [facility] [address] [place] [address] Martin Gomez MD Diabetes mellitus type 2 with complications ([facility]) 04/18/2024 Refill [facility] [address] [place] [address] Martin Gomez MD Chronic pain syndrome 04/10/2024 Refill [facility] [address] [place] [address] Name, MD Martin Type 2 diabetes mellitus with other specified complication, with long-term current use of insulin ([facility]) 04/02/2024 Refill [facility] [address] [place] [address] Name, MD Martin from Last 3 Months Immunizations Name Administration Dates Next Due Hep B, adult 07/29/2023(Deferred: Patient Ref used) Influenza High-dose Quadriva lent Preservative Free 01/02/2021 Influenza injectable quadriv alent IIV4 with preservative 01/11/2018 Influenza injectable quadriv alent preservative free 11/23/2018 Moderna Covid-19 Vaccine 12+ 02/07/2021,08/09/19 21,07/11/2020 Pfizer Covid-19 Vaccine 12+ 07/29/2023(Deferred: Patient Refused) Pneumococcal Conjugate PCV 13 01/11/2018 Pneumococcal Polysaccharide PPSV23 04/13/2019 RSV Bivalent 07/29/2023(Deferred: Patient Ref used) Tdap 11/23/2018 Zoster, Recombinant 07/29/2023(Deferred: Patient Refused) Social History Tobacco Use Types Packs/Day Years Used Date Smoking Tobacco: Never Smokeless Tobacco: Never Tobacco Cessation:Counseling Given: Not Answered Alcohol Use Standard Drinks/Week Comments Never 0 (1 standard drink = 0.6 oz pur e alcohol) Alcohol Answer Date Recorded Frequency of Alcohol Consumption Not on file 11/17/2023 Average Number of Drinks Not on file 024 Frequency of Binge Drinking Not on file 10/31 Score 0 11/17/2023 Depression Answer Date Recorded Patient Health Questionnaire-9 Score 10 12/21/2023 Patient Health Questionnaire-9 Score 10 12/21/2023 Last PHQ-9: Questionnaire Data Not on file 1 Housing Stability Answer Date Recorded What is your housing situation today? I have feliciano turner 04/08/[address] you li ve. Do you have problems with any of the following? None of the above 04/08/2023 Food Insecurity Answer Date Recorded Within the past 12 months, y ou worried that your food would run out before you got money to buy more: Never True 04/08/2023 Within the past 12 months,th e food you bought just didn't last and you didn't have enough money to get more: Never True 08/2023 Transportation Answer Date Recorded In the past 12 months, has l ack of transportation kept you from medical appts, meetings, work or from getting things needed for daily living? No 04/08/2023 Utilities Answer Date Recorded In the past 12 months, has t he [employer], gas, oil or water company threatened to shut off services in your home? No 04/08/2023 Depression Answer Date Recorded Patient Health Questionnaire-2 Score 4 12/21/2023 Sex and Gender Information Value Date Recorded Sex Assigned at Male 12/30/2021 10:33 AM EDT Legal Sex Male 10:33 AM EDT Gender Identity Male 12/30/2021 10:33 AM EDT Sexual Orientation Straight 12/30/2021 10 :33 AM EDT Last Filed Vital Signs Vital Sign Reading Time Taken Comments Blood Pressure 112/77 06/23/2024 2:34 PM EDT Pulse 92 06/23/2024 2:34 PM EDT Temperature 37.1 ??C (98.8 ??F) 06/23/2024 2:34 PM ED T Respiratory Rate 14 06/23/2024 2:34 PM EDT Oxygen Saturation 95% 06/23/2024 2:34 PM EDT Inhaled Oxygen Concentration - - Weight 63.2 kg (139 lb 6.4 oz) 06/23/2024 2:34 P M EDT Height 167.6 cm (5' 6 ) 06/23/2024 2:34 PM EDT Body Mass Index 22.5 06/23/2024 2:34 PM EDT Plan of Treatment Health Maintenance Due Date Last Done Comments CT Colonography 1950 FIT DNA/Cologuard 1950 FIT 1950 FOBT 1950 Sigmoidoscopy 1950 Zoster Vaccines (1 of 2) 01/26/2000 RSV Patients and Patients Aged 60 years or older (1 - Risk 60-74 years 1-dose series) 2010 COVID-19 Vaccine ( season) 2023 02/07/2021, 08/08/2020, 07/11/2020 Influenza Vaccine (#1) 2023 , 11/23/2018, 01/11/2018 SDOH Screening 04/08/2024 04/08/2023 Diabetes: Hemoglobin A1C 09/22/202406/23/ 025, 02/17/2024, 11/17/2023, Additional history exists Alcohol/Substance Use Screening 11/16/2024 11/17/2023 Diabetes: Foot Exam 11/16/2024 11/17/2023, 11/17/2023, 11/17/2023, Additional history exists Depression Screening 12/20/2024 12/21/2023, 12/21/19 Diabetes: Urine Protein Screening 02/07/2025 02/08/2024, 03/04/2022, 07/30/2021, Additional history exists Lipid Panel 02/07/2025 02/08/2024, 04/2022, 07/30/2021, Additional history exists Eye Exam 03/17/2025 03/17/2023 Tobacco Screening 06/23/2025 06/23/2024 Colonoscopy 07/05/2028 07/06/2023 Colorectal Cancer Screening 07/05/2028 DTaP/Tdap/Td Vaccines (2 - Td or Tdap) 11/23/2028 11/23/2018 Pneumococcal Vaccine: 50+ Years Completed 04/13/2019, 01/11/2018 Hepatitis C Screening Completed 12/16/2022 HIB Vaccines Aged Out No longer eligi ble based on patient's age to complete this topic HPV Vaccines Aged Out No longer eligi ble based on patient's age to complete this topic Hepatitis A Vaccines Aged Out No long er eligible based on patient's age to complete this topic Hepatitis B Vaccines Aged Out No long er eligible based on patient's age to complete this topic IPV Vaccines Aged Out No longer eligi ble based on patient's age to complete this topic Meningococcal Vaccine Aged Out No katya rudi eligible based on patient's age to complete this topic RSV under 20 months Aged Out No longe r eligible based on patient's age to complete this topic Rotavirus Vaccines Aged Out No longer eligible based on patient's age to complete this topic Goals Goal Patient Goal Type Associated Problems Recent Progress Patient-Stated? Author Patient will adhere to medication regimen General No Asha Lowery PharmD Hemoglobin A1c < 7.5 Result Component 8.6( 2:36 PM EDT) No Asha Lowery PharmD Record your blood sugar as directed Result Component No Asha Lowery PharmD Note: Use CGM, ensuring sensor is scanned at least once every 8 hours to capture 24H data. Check BG manually, as directed. Procedures Procedure Name Priority Date/Time Associated Diagnosis Comments POCT GLYCATED HEMOGLOBIN, TOTAL Routine 06/23/2024 2:36 PM EDT Type 2 diabetes mellitus with other specified complication, unspecified whether fdc insulin use ([facility]) POCT GLUCOSE Routine 06/23/2024 2:36 PM EDT Type 2 diabetes mellitus with other specified complication, unspecified whether fdc insulin use ([facility]) ALBUMIN, RANDOM URINE W/CREATININE Routine 02/08/2024 11:12 AM EST Type 2 diabetes mellitus with other specified complication, with long-term current use of insulin ([facility]) Anxiety Hypoglycemia LIPID PANEL, STANDARD Routine 02/08/2024 11:12 AM EST Type 2 diabetes mellitus with other specified complication, with long-term current use of insulin ([facility]) Anxiety Hypoglycemia HM COLONOSCOPY Routine 07/06/2023 HEPATITIS C VIRAL RNA, QUANTITATIVE, REAL-TIME PCR Routine 12/16/2022 2:33 PM EDT from Last 3 Months or Most Recently Relevant to Health Maintenance Results * (ABNORMAL) POCT HGB A1C (06/23/2024 2:36 PM EDT) Hemoglobin A1C 8.6(A) 4.0 - 6.0 % QC Media Lot # [id number] Lot# Expiration Date [id number] Blood 06/23/2024 2:36 PM EDT us Martin Gomez MD POINT OF CARE TEST ENTER/EDIT OR DERABLES Final Result * POCT Glucose (06/23/2024 2:36 PM EDT) Glucose Blood, POC 182 60 - 200 mg/dL QC Media Lot # [id number] Lot# Expiration Date [id number] Blood Capillary blood specimen / Unknown 06/23/2024 2:36 PM EDT us Martin Gomez MD POINT OF CARE TEST ENTER/EDIT OR DERABLES Final Result * Albumin, Random Urine W/Creatinine (02/08/2024 11:12 AM EST) Creatinine, Urine 48.91 mg/dL [facility] Microalbumin Urine <5.0 mg/L [facility] Microalbum Creatinine Ratio Ur TNP <30 ug/mg cr [facility] Comment:Unable to calculate albumin/creatinine ratio due to lowmicroalbumin or creatinine result. Urine (Urine, Random) 02/08/2024 11:12 AM EST 02/08/2024 1:09 PM EST us Martin Gomez MD LAB URINE ORDERABLES Final Resul t [facility] [address] [place] [phone] * Lipid Panel, Standard (02/08/2024 11:12 AM EST) Triglycerides 50 <150 mg/dL [facility] Comment:Desirable Triglyceri de: less than 150 mg/dLBorderline High Triglyceride 150-199 mg/dLHigh Triglyceride: 200-499 mg/dLVery High Triglyceride: greater than or equal to 5OO mg/dL Cholesterol 139 <200 mg/dL [facility] Comment:Desirable Cholestero l: less than 200 mg/dLBorderline High Cholesterol: 200-239 mg/dLHigh Cholesterol: greater than 239 mg/dL LDL Cholesterol Calculated 68 <100 mg/dL [facility] Comment:Desirable LDL: less than 100 mg/dLNear Optimal/Above Optimal LDL: 110- 129 mg/dLBorderline High LDL: 130-159 mg/dLHigh LDL: 160-189 mg/dLVery High LDL: greater than or equal to 190 mg/dL HDL Cholesterol 61 >40 mg/dL [facility] Comment:Desirable HDL: great er than 40 mg/dL Note: This HDL assay may give artificially low results in patients with liver disease. Blood Venous blood specimen / Unknown 02/08/2024 11:12 AM EST 02/08/2024 1:09 PM EST us Martin Gomez MD LAB BLOOD ORDERABLES Final Resul t [facility] [address] [place] [phone] * (ABNORMAL) Colonoscopy (07/06/2023) Pathologist [facility] Colonoscopy Abnormal(A ) Normal us Martin Gomez MD HEALTH MAINTENANCE Final Result * Hepatitis C Viral RNA, Quantitative, Real-Time PCR (12/16/2022 2:33 PM EDT) [facility] Hepatitis C Viral Load <15 NOT DETECTED NOT DETECTED IU/mL [facility] HCV Log PCR <1.18 NOT DETECTED NOT DETECTED Log IU/mL [facility] Comment:This test was perfor med using Real-Time Polymerase ChainReaction.Reportable Range: 15 IU/mL to 100,000,000 IU/mL(1.18 Log IU/mL to 8.00 Log IU/mL).The analytical performance characteristics of thisassay have been determined by [facility] [employer].The modifications have not been cleared or approved bythe FDA. This assay has been validated pursuant to theCLIA regulations and is used for clinical purposes.For more information on this test, go to:http://education.Back[employer]ify/faq/MGB02q1(This link is being provided for informational/educational purposes only.)THIS TEST WAS PERFORMED AT:[facility] [place] [phone] CORTÉS MD 12/16/2022 2:33 PM EDT 12/16/2022 2:34 PM EDT [facility] External Provider LAB BLO OD ORDERABLES Final Result [facility] [address] [place], [place] [phone] from Last 3 Months or Most Recently Relevant to Health Maintenance Insurance [employer] (HMO D-SNP) Care Teams Stock Sheets Cleaner Inspector Relationship Specialty Start Date End Date Name, MD Martin [address] [place] [address] PCP - General Family Medicine 03/02/18 Asha Lowery, PharmD [address] [place] [phone] Pharmacist Internal Medicine 06/27/22
--- OUTSIDE RECORDS SUMMARY | 2024-06-23 15:01 | XMS_ITS | Encounter Summary ---
Author Organization [employer] Address [address] [place] [address] [address] [place] [address] Care Team Providers Care Patient Financial Advocate Name Role Phone Name, Martin MICHAEL Primary Care Provider [phone] Asha Lowery PharmD Unavailable [phone] Encounter Details Date Type Department Care Team (Late st Contact Info) Description 02/11/2022 Orders Only [facility] [address] [place] [address] Ria Campbell LPN Social History Tobacco Use Types Packs/Day Years Used Date Smoking Tobacco: Never Assessed Sex and Gender Information Value Date Recorded Sex Assigned at Male 12/30/2021 10:33 AM EDT Legal Sex Male 10:33 AM EDT Gender Identity Male 12/30/2021 10:33 AM EDT Sexual Orientation Straight 12/30/2021 10 :33 AM EDT documented as of this encounter Plan of Treatment Not on file documented as of this encounter Visit Diagnoses Not on filedocumented in this encounter Care Teams Patient Financial Advocate Relationship Specialty Start Date End Date Name, MD Martin [address] [place] [address] PCP - General Family Medicine 03/02/18 Asha Lowery, PharmD [address] [place] [address] Pharmacist Internal Medicine 06/27/22 documented as of this encounter
--- OUTSIDE RECORDS SUMMARY | 2024-06-23 15:01 | XMS_ITS | Encounter Summary ---
Author Organization [employer] Address [address] [facility] [address] [place] [id number] Care Team Providers Care Media Clerk Name Role Phone Name, Martin MICHAEL Primary Care Provider [phone] Asha Lowery PharmD Unavailable [phone] Encounter Details Date Type Department Care Team (Late st Contact Info) Description 07/17/2022 Abstract [facility] MEDICINE [address] [place] [address] Name, MD Martin [address] [place] [address] Social History Tobacco Use Types Packs/Day Years Used Date Smoking Tobacco: Never Smokeless Tobacco: Never Sex and Gender Information Value Date Recorded Sex Assigned at Male 12/30/2021 10:33 AM EDT Legal Sex Male 10:33 AM EDT Gender Identity Male 12/30/2021 10:33 AM EDT Sexual Orientation Straight 12/30/2021 10 :33 AM EDT COVID-19 Exposure Response Date Recorded In the last 10 days, have yo u been in contact with someone who was confirmed or suspected to have Coronavirus/COVID-19? Unable to assess 07/14/2022 1:56 PM EDT documented as of this encounter Plan of Treatment Not on file documented as of this encounter Goals Goal Patient Goal Type Associated Problems Recent Progress Patient-Stated? Author Hemoglobin A1c < 7.5 Result Component 8.6(06/23/2024 2:36 PM EDT) No PuiaAimeAsha, PharmD documented as of this encounter Visit Diagnoses Not on filedocumented in this encounter Additional Health Concerns Assessment Noted Time PHQ-9 Depression Total Score: 0 02/27/20 22 9:16 AM EST documented as of this encounter Care Teams Media Clerk Relationship Specialty Start Date End Date Name, MD Martin [address] [place] [address] PCP - General Family Medicine 03/02/18 Asha Lowery PharmD [address] [place] [address] Pharmacist Internal Medicine 06/27/22 documented as of this encounter
--- OUTSIDE RECORDS SUMMARY | 2024-06-23 15:01 | XMS_ITS | Encounter Summary ---
Author Organization [employer] Address [address] [facility] 7t [place] [address] Care Team Providers Care Head Baker Name Role Phone Name, Martin MICHAEL Primary Care Provider [phone] Asha Lowery PharmD Unavailable [phone] Encounter Details Date Type Department Care Team (Latest Contact Info) Description 06/23/2024 Travel Social History Tobacco Use Types Packs/Day Years [...] Assessment Noted Time PHQ-9 Depression Total Score: 10 024 1:43 PM EDT documented as of this encounter Care Teams Head Baker Relationship Specialty Start Date End Date Name, MD Martin [address] [place] [address] PCP - General Family Medicine 03/02/18 Asha Lowery PharmD [address] [place] [address] Pharmacist Internal Medicine 06/27/22 documented as of this encounter
--- OUTSIDE RECORDS SUMMARY | 2024-06-23 15:01 | XMS_ITS | Encounter Summary ---
Author Organization [employer] [facility] Address [address] [place] [address] 7t [place] [address] Care Team Providers Care Packaging Designer Name Role Phone Name, Martin MICHAEL Primary Care Provider [phone] Asha Lowery PharmD Unavailable [phone] Encounter Details Date Type Department Care Team (Latest Contact Info) Description 09/13/2018 Abstract [facility] CONVERSIONS Dental, Provider, DDS Social History Tobacco Use Types Packs/Day Years [...] on filedocumented in this encounter Care Teams Packaging Designer Relationship Specialty Start Date End Date Name, MD Martin [address] [place] [address] PCP - General Family Medicine 03/02/18 Asha Lowery, PharmD [address] [place] [address] Pharmacist Internal Medicine 06/27/22 documented as of this encounter
--- OUTSIDE RECORDS SUMMARY | 2024-06-23 15:01 | XMS_ITS | Encounter Summary ---
Author Organization [employer] Address [address] [facility] [address] [place] [address] Care Team Providers Care Geodesy Teacher Name Role Phone Name, Martin MICHAEL Primary Care Provider [phone] Asha Lowery PharmD Unavailable [phone] Reason for Visit * Reason Onset Date Comments Med Refill 03/17/2024 Encounter Details Date Type Department Care Team ([facility] st Contact Info) Description 03/17/2024 Telephone [facility] MEDICINE [address] [place], [place] [phone] Name, MD Martin [address] [place] [address] Med Refill Social History Tobacco Use Types Packs/Day Years [...] AM EDT documented as of this encounter Miscellaneous Notes * Telephone Encounter - Paola Cash LPN - 03/17/2024 4:21 PM EST Buspirone was discontinued ineffective and freestyle lancets should have refills. * Telephone Encounter - Dayo Salazar - 03/17/2024 4:06 PM EST TC from pt requesting medication refill. Medications needing refill : busPIRone (Buspar) 7.5 MG tablet FreeStyle lancets To be sent to: [facility]/pharmacy #[id number] documented in this encounter Plan of Treatment Not on file documented as of this encounter Goals Goal Patient Goal Type Associated Problems Recent Progress Patient-Stated? Author Patient will adhere to medication regimen General No Puia, Asha, PharmD Hemoglobin A1c < 7.5 Result Component 8.6( 2:36 PM EDT) No Puia, Asha, PharmD Record your blood sugar as directed Result Component No Puia, Asha, PharmD Note: Use CGM, ensuring sensor is scanned at least once every 8 hours to capture 24H data. Check BG manually, as directed. documented as of this encounter Visit Diagnoses Not on filedocumented in this encounter Additional Health Concerns Assessment Noted Time PHQ-9 Depression Total Score: 10 024 1:43 PM EDT documented as of this encounter Care Teams Geodesy Teacher Relationship Specialty Start Date End Date Name, MD Martin [address] [place] [address] PCP - General Family Medicine 03/02/18 Asha Lowery PharmD [address] [place] [address] Pharmacist Internal Medicine 06/27/22 documented as of this encounter
--- OUTSIDE RECORDS SUMMARY | 2024-06-23 15:01 | XMS_ITS | Encounter Summary ---
Author Organization [employer] Address [address] [facility] 7t [place] [address] Care Team Providers Care On Site Soil Evaluator Name Role Phone Name, Martin MICHAEL Primary Care Provider [phone] Asha Lowery PharmD Unavailable [phone] Encounter Details Date Type Department Care Team (Late st Contact Info) Description 05/14/2022 Orders Only [facility] MED & PEDS [address] [place], [place] [phone] Paola Cash LPN Social History Tobacco Use Types Packs/Day [...] was confirmed or suspected to have Coronavirus/COVID-19? No / Unsure 05/12/2022 3:12 PM EDT documented as of this encounter Plan of Treatment Not on file documented as of this encounter Visit Diagnoses Not on filedocumented in this encounter Additional Health Concerns Assessment Noted Time PHQ-9 Depression Total Score: 0 02/27/20 22 9:16 AM EST documented as of this encounter Care Teams On Site Soil Evaluator Relationship Specialty Start Date End Date Name, MD Martin [address] [place] [address] PCP - General Family Medicine 03/02/18 Asha Lowery, PharmD [address] [place] [address] Pharmacist Internal Medicine 06/27/22 documented as of this encounter
--- OUTSIDE RECORDS SUMMARY | 2024-06-23 15:01 | XMS_ITS | Encounter Summary ---
Author Organization [employer] Address [address] [facility] 7t h Floor [place] [id number] Care Team Providers Care Fulfillment Mail Clerk Name Role Phone Name, Martin MICHAEL Primary Care Provider [phone] Asha Lowery PharmD Unavailable [phone] Reason for Visit * Reason Comments Diabetes Encounter Details Date Type Department Care Team ([facility] st Contact Info) Description 06/23/2024 2:30 PM EDT Office Visit [facility] MEDICINE [address] [place], [place] [phone] Name, MD Martin [address] [place] [address] Type 2 diabetes mellitus with other specified complication, unspecified whether intermediate project manager insulin use ([facility]) (Primary Dx); Depression with anxiety; Type 2 diabetes mellitus with other specified complication, with long-term current use of insulin ([facility]) Social History Tobacco Use Types Packs/Day Years [...] AM EDT documented as of this encounter Last Filed Vital Signs Vital Sign Reading [...] Mass Index 22.5 06/23/2024 2:34 PM EDT documented in this encounter Plan of Treatment Scheduled Orders Name Type Priority Associated Diagnoses Orde r Schedule Basic Metabolic Panel Lab Routine Type 2 diabetes mellitus with other specified complication, unspecified whether prison insulin use ([facility]) Depression with anxiety Expected: 06/23/2024 (Approximate), Expires: 06/23/2025 documented as of this encounter Goals Goal [...] as directed. documented as of this encounter Procedures Procedure Name Priority Date/Time Associated Diagnosis Comments POCT GLYCATED HEMOGLOBIN, TOTAL Routine 06/23/2024 2:36 PM EDT Type 2 diabetes mellitus with other specified complication, unspecified whether intermediate project manager insulin use ([facility]) POCT GLUCOSE Routine 06/23/2024 2:36 PM EDT Type 2 diabetes mellitus with other specified complication, unspecified whether prison insulin use ([facility]) documented in this encounter Results * (ABNORMAL) POCT HGB A1C (06/23/2024 2:36 PM EDT) Hemoglobin A1C 8.6(A) 4.0 - 6.0 % QC Media Lot # [id number] Lot# Expiration Date 110,[id number] Blood 06/23/2024 2:36 PM EDT Result Guanaco Gomez MD POINT OF CARE TEST ENTER/EDIT OR DERABLES Final Result * POCT Glucose (06/23/2024 2:36 PM EDT) Glucose Blood, POC 182 60 - 200 mg/dL QC Media Lot # [id number] Lot# Expiration Date 82,625 Blood Capillary blood specimen / Unknown 06/23/2024 2:36 PM EDT us Martin Gomez MD POINT OF CARE TEST ENTER/EDIT OR DERABLES Final Result documented in this encounter Visit Diagnoses Diagnosis Type 2 diabetes mellitus with other specified complication, unspecified whether prison insulin use ([facility])- Primary Depression with anxiety Dysthymic disorder Type 2 diabetes mellitus with other specified complication, with long-term current use of insulin ([facility]) documented in this encounter Additional Health Concerns Assessment Noted Time PHQ-9 Depression Total Score: 10 024 1:43 PM EDT documented as of this encounter Care Teams Fulfillment Mail Clerk Relationship Specialty Start Date End Date Name, MD Martin [address] [place] [address] PCP - General Family Medicine 03/02/18 Asha Lowery PharmD [address] [place] [address] Pharmacist Internal Medicine 06/27/22 documented as of this encounter
--- OUTSIDE RECORDS SUMMARY | 2024-06-23 15:01 | XMS_ITS | Encounter Summary ---
Author Organization [employer] Address [address] [facility] 7t [place] [address] Care Team Providers Care Feed Project Engineer Name Role Phone Name, Martin MICHAEL Primary Care Provider [phone] Asha Lowery PharmD Unavailable [phone] Reason for Visit * Reason Comments Med Refill Encounter Details Date Type Department Care Team ([facility] st Contact Info) Description 05/11/2024 Refill [facility] MEDICINE [address] [place] [address] Name, MD Martin [address] [place] [address] Social History Tobacco Use Types Packs/Day Years [...] documented as of this encounter Care Teams Feed Project Engineer Relationship Specialty Start Date End Date Name, MD Martin [address] [place] [address] PCP - General Family Medicine 03/02/18 Asha Lowery PharmD [address] [place] [address] Pharmacist Internal Medicine 06/27/22 documented as of this encounter
== END 2024-06-23 13:52 | disposition home or self-care (01) ==
LOC: HO.HGI 12:46
PROVIDERS: PCP Internal Medicine Geriatric Medicine; Visit Provider Nurse Practitioner
DX: K21.9 Gastro-esophageal reflux disease without esophagitis (principal); R10.10 Upper abdominal pain, unspecified
CPT/HCPCS: 99213

== ENCOUNTER 2024-06-23 14:57 | Outpatient (REF) | payer OTHER, SELFPAY ==
[2024-06-23 16:29] LABS: Anion Gap 11 (12-20); Blood Urea Nitrogen 23 mg/dL (9-16); Calcium 9.8 mg/dL (8.4-10.2); Carbon Dioxide 28 mmol/L (22-29); Chloride 101 mmol/L (96-108); Estimated Glomerular Filt Rate > 60; Glucose Random 159 mg/dL (60-115); Potassium 4.1 mmol/L (3.3-5.1); Sodium 136 mmol/L (135-145)
--- OUTSIDE RECORDS SUMMARY | 2024-06-23 17:41 | XMS_ITS | Encounter Summary ---
Author Organization [employer] Address [address] [facility] 7t [place] [address] Care Team Providers Care Clinical Trainer Name Role Phone Name, Martin MICHAEL Primary Care Provider [phone] Asha Lowery PharmD Unavailable [phone] Reason for Visit * Reason Comments Med Refill Encounter Details Date Type Department Care Team ([facility] st Contact Info) Description 05/11/2024 Refill [facility] MEDICINE [address] [place] [address] Name, MD Martin [address] [place] [address] Social History Tobacco Use Types Packs/Day Years [...] documented as of this encounter Care Teams Clinical Trainer Relationship Specialty Start Date End Date Name, MD Martin [address] [place] [address] PCP - General Family Medicine 03/02/18 Asha Lowery PharmD [address] [place] [address] Pharmacist Internal Medicine 06/27/22 documented as of this encounter
--- OUTSIDE RECORDS SUMMARY | 2024-06-23 17:41 | XMS_ITS | Encounter Summary ---
Author Organization [employer] Address [address] [place] [address] [address] [address] Care Team Providers Care Diesel Maintenance Technician Name Role Phone Name, Martin MICHAEL Primary Care Provider [phone] Asha Lowery PharmD Unavailable [phone] Encounter Details Date Type Department Care Team (Late st Contact Info) Description 02/11/2022 Orders Only [facility] [address] [place] [address] Ria Campbell LPN Social History Tobacco Use [...] on filedocumented in this encounter Care Teams Diesel Maintenance Technician Relationship Specialty Start Date End Date Name, MD Martin [address] [place] [address] PCP - General Family Medicine 03/02/18 Asha Lowery, PharmD [address] [place] [address] Pharmacist Internal Medicine 06/27/22 documented as of this encounter
--- OUTSIDE RECORDS SUMMARY | 2024-06-23 17:41 | XMS_ITS | Encounter Summary ---
Author Organization [employer] Address [address] [facility] 7t [place] [address] Care Team Providers Care Solo Truck Driver Name Role Phone Name, Martin MICHAEL Primary Care Provider [phone] Asha Lowery PharmD Unavailable [phone] Encounter Details Date Type Department Care Team (Late st Contact Info) Description 05/14/2022 Orders Only [facility] CH[facility] MED & PEDS [address] [place], [place] [phone] Paola Cash LPN Social History Tobacco Use [...] documented as of this encounter Care Teams Solo Truck Driver Relationship Specialty Start Date End Date Name, MD Martin [address] [place] [address] PCP - General Family Medicine 03/02/18 Asha Lowery, PharmD [address] [place] [address] Pharmacist Internal Medicine 06/27/22 documented as of this encounter
--- OUTSIDE RECORDS SUMMARY | 2024-06-23 17:41 | XMS_ITS | Encounter Summary ---
Author Organization [employer] [facility] Address [address] [place] [address] 7t [place] [address] Care Team Providers Care Director Of Business Operations Name Role Phone Name, Martin MICHAEL Primary Care Provider [phone] Asha Lowery PharmD Unavailable [phone] Encounter Details Date Type Department Care Team (Latest Contact Info) Description 09/13/2018 Abstract [facility] CONVERSIONS Dental, Provider, DDS Social History [...] on filedocumented in this encounter Care Teams Director Of Business Operations Relationship Specialty Start Date End Date Name, MD Martin [address] [place] [address] PCP - General Family Medicine 03/02/18 Asha Lowery, PharmD [address] [place] [address] Pharmacist Internal Medicine 06/27/22 documented as of this encounter
--- OUTSIDE RECORDS SUMMARY | 2024-06-23 17:41 | XMS_ITS | Encounter Summary ---
Author Organization [employer] Address [address] [facility] [address]t h [place] [id number] Care Team Providers Care Automatic Casting Machine Operator Name Role Phone Name, Martin MICHAEL Primary Care Provider [phone] Asha Lowery PharmD Unavailable [phone] Encounter Details Date Type Department Care Team (Late st Contact Info) Description 07/17/2022 Abstract [facility] MEDICINE [address] [place] [address] Name, MD Martin [address] [place] [address] Social History Tobacco Use Types Packs/Day Years [...] documented as of this encounter Care Teams Automatic Casting Machine Operator Relationship Specialty Start Date End Date Name, MD Martin [address] [place] [address] PCP - General Family Medicine 03/02/18 Asha Lowery PharmD [address] [place] [address] Pharmacist Internal Medicine 06/27/22 documented as of this encounter
--- OUTSIDE RECORDS SUMMARY | 2024-06-23 17:41 | XMS_ITS | Encounter Summary ---
Author Organization [employer] Address [address] [facility] 7t [place] [address] Care Team Providers Care Armhole Feller Handstitching Machine Name Role Phone Name, Martin MICHAEL Primary Care Provider [phone] Asha Lowery PharmD Unavailable [phone] Encounter Details Date Type Department Care [...] documented as of this encounter Care Teams Armhole Feller Handstitching Machine Relationship Specialty Start Date End Date Name, MD Martin [address] [place] [address] PCP - General Family Medicine 03/02/18 Asha Lowery PharmD [address] [place] [address] Pharmacist Internal Medicine 06/27/22 documented as of this encounter
--- OUTSIDE RECORDS SUMMARY | 2024-06-23 17:41 | XMS_ITS | Encounter Summary ---
Author Organization [employer] Address [address] [facility] 7t [place] [address] Care Team Providers Care Dip Dyer Name Role Phone Name, Martin MICHAEL Primary Care Provider [phone] Asha Lowery PharmD Unavailable [phone] Reason for Visit * Reason Comments Med Refill Encounter Details Date Type Department Care Team ([facility] st Contact Info) Description 02/12/2023 Refill [facility] MEDICINE [address] [place], [place] [phone] Name, MD Martin [address] [place] [address] Diabetes mellitus type 2 with complications ([facility]/HCC) Social History Tobacco Use Types Packs/Day Years [...] documented as of this encounter Care Teams Dip Dyer Relationship Specialty Start Date End Date Name, MD Martin [address] [place] [address] PCP - General Family Medicine 03/02/18 Asha Lowery PharmD [address] [place] [address] Pharmacist Internal Medicine 06/27/22 documented as of this encounter
--- OUTSIDE RECORDS SUMMARY | 2024-06-23 17:41 | XMS_ITS | Encounter Summary ---
Author Organization [employer] Address [address] [facility] [address] [address] Care Team Providers Care Utility Driver Name Role Phone Name, Martin MICHAEL Primary Care Provider [phone] Asha Lowery PharmD Unavailable [phone] Reason for Visit * Reason Onset Date Comments Med Refill 03/17/2024 Encounter Details Date Type Department Care Team ([facility] st Contact Info) Description 03/17/2024 Telephone [facility] MEDICINE [address] [place], [place] [phone] Name, MD Martin [address] [place] [address] Med Refill Social History Tobacco Use Types [...] tablet FreeStyle lancets To be sent to: [facility]/pharmacy #[id number] documented in this encounter Plan of Treatment [...] documented as of this encounter Care Teams Utility Driver Relationship Specialty Start Date End Date Name, MD Martin [address] [place] [address] PCP - General Family Medicine 03/02/18 Asha Lowery PharmD [address] [place] [address] Pharmacist Internal Medicine 06/27/22 documented as of this encounter
--- OUTSIDE RECORDS SUMMARY | 2024-06-23 17:41 | XMS_ITS | Encounter Summary ---
Author Organization [employer] Address [address] [facility] 7[address] [place] [address] Care Team Providers Care Stone Derrickman And Rigger Name Role Phone Name, Martin MICHAEL Primary Care Provider Asha Lowery PharmD Unavailable [phone] Reason for Visit * Reason Comments Diabetes Encounter Details Date Type Department Care Team ([facility] st Contact Info) Description 06/23/2024 2:30 PM EDT Office Visit [facility] [address] [place], [place] [phone] Name, MD Martin [address] [place] [address] Type 2 diabetes mellitus with other specified complication, unspecified whether medical terminologist insulin use ([facility]) (Primary Dx); Depression with anxiety Social History Tobacco Use Types Packs/Day Years [...] 2:34 PM EDT documented in this encounter Progress Notes * Martin Gomez MD - 06/23/2024 2:30 PM EDT Subjective Patient ID: Gonzales Flannery is a 74 y.o. male who presents for Diabetes. The patient comes for a follow-up visit. His blood sugar is uncontrolled. He has frequent hyperglycemia on his CGM and this is consistent with his current hemoglobin A1c. He continues to have a liberal diet and he does not use his NovoLog as prescribed. He was lost to follow up from the [facility] program. He also complains of depression and anxiety. He is not suicidal. He is interested in treatment withmedications. 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 He has not used methadone in several years. He denies use of illicits. The patient asked me to start him on lorazepam to treat anxiety. Review of Systems Constitutional: Negative for chills, fatigue and fever. HENT: Negative for sore throat. Respiratory: Negative for cough, chest tightness and shortness of breath. Cardiovascular: Negative for chest pain, palpitations and leg swelling. Gastrointestinal: Negative for abdominal pain and blood in stool. Visit Vitals BP 112/77 (BP Location: Left arm, Patient Position: Sitting, BP Cuff Size: Adult) Pulse 92 Temp 98.8 ??F (37.1 ??C) (Temporal) Resp 14 Ht 5' 6 (1.676 m) Wt 139 lb 6.4 oz (63.2 kg) SpO2 95% BMI 22.50 kg/m?? Smoking Status Never BSA 1.72 m?? Objective Physical Exam Constitutional: Appearance: Normal appearance. Cardiovascular: Rate and Rhythm: Normal rate and regular rhythm. Heart sounds: No murmur heard. Pulmonary: Effort: Pulmonary effort is normal. No respiratory distress. Breath sounds: No wheezing, rhonchi or rales. Abdominal: Palpations: Abdomen is soft. Tenderness: There is no abdominal tenderness. Musculoskeletal: Right lower leg: No edema. Left lower leg: No edema. Neurological: Mental Status: He is alert. Assessment/Plan Diagnoses and all orders for this visit: Type 2 diabetes mellitus with other specified complication, unspecified whether medical terminologist insulin use ([facility]) Comments: I recommended the patient to at least avoid sweetened drinks. I recommended to drink only water. Avoid putting sugar in his coffee. I refilled his insulin that is recommended to use as prescribed I recommended to use his metformin, Actos and Jardiance daily The patient will continue current dose of Ozempic. He is reluctant to increase the dose because he does not want to lose any weight. I recommended to resume follow-up with CD program and he is agreeable. Check blood work listed below Orders: - POCT Glucose - POCT HGB A1C - Basic Metabolic Panel; Future - insulin glargine (Lantus SoloStar) 100 UNIT/ML pen; Inject 18 Units under the skin in the morning. - insulin aspart (NovoLOG FLEXPEN) 100 UNIT/ML pen; Inject 10 units subQ with breakfast & 4 units subQ with dinner Depression with anxiety Comments: I recommended to avoid the use of benzodiazepines given his history of substance abuse in the past and the side effects of the medication. I recommended to increase dose of sertraline. I prescribed him BuSpar for anxiety. Orders: - Basic Metabolic Panel; Future Other orders - sertraline (Zoloft) 50 MG tablet; Take 1 tablet (50 mg) by mouth Once per day. - busPIRone (Buspar) 10 MG tablet; Take 1 tablet (10 mg) by mouth 2 times daily. documented in this encounter Plan of Treatment Not on file documented as of this encounter Goals Goal Patient Goal Type Associated Problems Recent Progress Patient-Stated? Author Patient will adhere to medication regimen General No Asha Lowery, PharmD Hemoglobin A1c < 7.5 Result Component 8.6( 2:36 PM EDT) No Asha Lowery, PharmD Record your blood sugar as directed Result Component No Asha Lowery, PharmD Note: Use CGM, ensuring sensor is scanned at least once every 8 hours to capture 24H data. Check BG manually, as directed. documented as of this encounter Procedures Procedure Name Priority Date/Time Associated Diagnosis Comments BASIC METABOLIC PANEL Routine 06/23/2024 2:59 PM EDT Type 2 diabetes mellitus with other specified complication, unspecified whether medical terminologist insulin use ([facility]) Depression with anxiety POCT GLYCATED HEMOGLOBIN, TOTAL Routine 06/23/2024 2:36 PM EDT Type 2 diabetes mellitus with other specified complication, unspecified whether medical terminologist insulin use ([facility]) POCT GLUCOSE Routine 06/23/2024 2:36 PM EDT Type 2 diabetes mellitus with other specified complication, unspecified whether chcf insulin use ([facility]) documented in this encounter Results * (ABNORMAL) Basic Metabolic Panel (06/23/2024 2:59 PM EDT) Sodium 136 135 - 145 mmol/L [facility] Potassium 4.1 3.3 - 5.1 mmol/L [facility] Chloride 101 96 - 108 mmol/L [facility] Carbon Dioxide 28 22 - 29 mmol/L [facility] Anion Gap 11(L) 12 - 20 [facility] Urea Nitrogen (BUN) 23(H) 9 - 16 mg/dL [facility] Creatinine, Serum 0.91 0.5 - 1.4 mg/dL [facility] Estimated Glomerular Filt Rate >60 [facility] Comment:Chronic Kidney Disea se: Estimated GFR < 60 mL/min/1.57t3Ikyhsi Kidney Disease: Estimated GFR < 15 mL/min/1.73m2 Glucose 159(H) 60 - 115 mg/dL [facility] Calcium 9.8 8.4 - 10.2 mg/dL [facility] Blood Venous blood specimen / Unknown 06/23/2024 2:59 PM EDT 06/23/2024 3:55 PM EDT us Martin Gomez MD LAB BLOOD ORDERABLES Final Resul t [facility] [address] [place] [phone] * (ABNORMAL) POCT HGB A1C (06/23/2024 2:36 PM EDT) Hemoglobin A1C 8.6(A) 4.0 - 6.0 % QC Media Lot # [id number] Lot# Expiration Date ,42 Blood 06/23/2024 2:36 PM EDT us Martin Gomez MD POINT OF CARE TEST ENTER/EDIT OR DERABLES Final Result * POCT Glucose (06/23/2024 2:36 PM EDT) Glucose Blood, POC 182 60 - 200 mg/dL QC Media Lot # [id number] Lot# Expiration Date [id number] Blood Capillary blood specimen / Unknown 06/23/2024 2:36 PM EDT Martin Name POINT OF CARE TEST ENTER/EDIT OR DERABLES Final Result documented in this encounter Visit Diagnoses Diagnosis Type 2 diabetes mellitus with other specified complication, unspecified whether medical terminologist insulin use ([facility])- Primary Depression with anxiety Dysthymic disorder documented in this encounter Additional Health Concerns Assessment Noted Time PHQ-9 Depression Total Score: 10 024 1:43 PM EDT documented as of this encounter Care Teams Stone Derrickman And Rigger Relationship Specialty Start Date End Date Name, MD Martin [address] [place] [address] PCP - General Family Medicine 03/02/18 Asha Lowery PharmD [address] [place] [address] Pharmacist Internal Medicine 06/27/22 documented as of this encounter
--- OUTSIDE RECORDS SUMMARY | 2024-06-23 17:41 | XMS_ITS | Clinical Summary ---
Author Organization [employer] Address [address] [facility] 7[address] [place] [address] Care Team Providers Care Warble Saw Operator Name Role Phone Name, Martin MICHAEL Primary Care Provider [phone] Asha Lowery PharmD Unavailable [phone] Allergies No known active allergies Medications * This document contains information received from the source organization and may not represent a complete record from that organization. Polyethyl Glycol-Propyl Glycol 0.4-0.3 % solution Place 2 drops in each eye 2-3 times per day as needed 021 Active Continuous Blood Gluc Power Sewing Machine Operator (FreeStyle Jermaine reader) deviceIndication s:Diabetes mellitus [...] complication, with long-term current use of insulin ([facility]) Inject 1 mg under the skin 1 (one) time per week. 1 each 024 Active pantoprazole (ProtoNix) 20 MG EC tablet 024 Active empagliflozin (Jardiance) 25 MGIndications:Ty pe 2 diabetes mellitus with other specified complication, unspecified whether campaign manager insulin use ([facility]) Take 1 tablet (25 mg) by mouth Once per day. 30 tablet Active pioglitazone (Actos) 15 MG tablet Take 1 tablet (15 mg) by mouth Once per day. 30 tablet 024 2024 Active metFORMIN (Glucophage) 1000 MG tabletIndication s:Type 2 diabetes mellitus with other specified complication, unspecified whether campaign manager insulin use ([facility]) TOME NERY TABLETA (1000 MG) [...] mellitus with other specified complication, unspecified whether campaign manager insulin use ([facility]) USE DIRECTED 4 TIMES DAILY 200 each 5 024 Active pregabalin (Lyrica) 75 MG capsuleIndicatio ns:Chronic pain syndrome TAKE 1 CAPSULE BY MOUTH AT BEDTIME 30 capsule 1 025 Active Continuous Glucose Sensor (FreeStyle Jermaine 2 Sensor) miscIndications: Diabetes mellitus type 2 with complications ([facility]) USE DIRECTED TO TEST BLOOD [...] mellitus with other specified complication, unspecified whether group home insulin use ([facility]) Inject 18 Units under the skin in the morning. 15 mL 1 025 Active insulin aspart (NovoLOG FLEXPEN) 100 UNIT/ML penIndications:T ype 2 diabetes mellitus with other specified complication, unspecified whether group home insulin use ([facility]/H[facility]) Inject 10 units subQ with breakfast [...] complication, with long-term current use of insulin ([facility]) INJECT 18 UNITS UNDER THE SKIN IN THE MORNING. 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 No risk for self-harm, SI or HI. Reason for visit was to assess symptoms and offer referral status. Plan is to be assigned with a therapist from [facility] ([phone]). Referral placed on 11/24. Recommended incorporating coping skills into his daily routine. At this time Gonzales Flannery meets criteria for Visit Diagnoses: Problem List Items Addressed This Visit Other Depression, unspecified Uncomplicated bereavement Patient ready to address current needs Yes Strengths include cultural identity and motivation to change PLAN: 1. Follow up with [facility]: Not recommended for follow-up 2. Patient goal [...] to be assigned with a therapist from [facility] ([phone]). Referral placed on 11/24. Recommended incorporating coping skills into his daily routine. At this time Gonzales Flannery meets criteria for Visit Diagnoses: Problem List Items Addressed This Visit Other Depression, unspecified Uncomplicated bereavement Patient ready to address current needs Yes Strengths include cultural identity and motivation to change PLAN: 1. Follow up with [facility]: Not recommended for follow-up 2. Patient goal [...] recurrent major depressive disorder, without psychotic features ([facility]/HCC) - Primary Adjustment disorder with mixed anxiety and depressed mood Relevant Orders Referral to Behavioral Health Patient ready to address current needs Yes Strengths include cultural identity and willingness to change. PLAN: 1. Follow up with [facility]: Not recommended for follow-up 2. Patient goal [...] Description 06/23/2024 2:30 PM EDT Office Visit [facility] [address] [place] [address] Martin Gomez MD Type 2 diabetes mellitus with other specified complication, unspecified whether group home insulin use ([facility]) (Primary Dx); Depression with anxiety 06/23/2024 Travel 06/16/2024 Telephone [facility] MED[facility]INE [address] [place] [address] [address] [place] appt change 05/11/2024 Refill [facility] [address] [place] [address] Martin Gomez MD 05/10/2024 Refill [facility] [address] [place] [address] Martin Gomez MD Essential hypertension 04/25/2024 Refill [facility] [address] [place] [address] Martin Gomez MD Diabetes mellitus type 2 with complications ([facility]) 04/18/2024 Refill [facility] [address] [place] [address] Martin Gomez MD Chronic pain syndrome 04/10/2024 Refill [facility] [address] [place] [address] Name, MD Martin Type 2 diabetes mellitus with other specified complication, with long-term current use of insulin ([facility]) 04/02/2024 Refill [facility] [address] [place] [address] Name, MD Martin from Last 3 Months [...] SDOH Screening 04/08/2024 04/08/2023 Diabetes: Hemoglobin A1C 09/22/2024 025, 02/17/2024, 11/17/2023, Additional history exists Alcohol/Substance [...] adhere to medication regimen General No Puia, Josesito Barry Hemoglobin A1c < 7.5 Result Component 8.6( [...] mellitus with other specified complication, unspecified whether group home insulin use ([facility]) Depression with anxiety POCT GLYCATED HEMOGLOBIN, TOTAL Routine 06/23/2024 2:36 PM EDT Type 2 diabetes mellitus with other specified complication, unspecified whether group home insulin use ([facility]) POCT GLUCOSE Routine 06/23/2024 2:36 PM EDT Type 2 diabetes mellitus with other specified complication, unspecified whether campaign manager insulin use ([facility]) ALBUMIN, RANDOM URINE W/CREATININE Routine 02/08/2024 11:12 AM EST Type 2 diabetes mellitus with other specified complication, with long-term current use of insulin ([facility]) Anxiety Hypoglycemia LIPID PANEL, STANDARD Routine 02/08/2024 11:12 AM EST Type 2 diabetes mellitus with other specified complication, with long-term current use of insulin ([facility]) Anxiety Hypoglycemia HM COLONOSCOPY Routine 07/06/2023 HEPATITIS C VIRAL RNA, QUANTITATIVE, REAL-TIME PCR Routine 12/16/2022 2:33 PM EDT from Last 3 Months or Most Recently Relevant to Health Maintenance Results * (ABNORMAL) Basic Metabolic Panel (06/23/2024 2:59 PM EDT) Sodium 136 135 - 145 mmol/L [facility] Potassium 4.1 3.3 - 5.1 mmol/L [facility] Chloride 101 96 - 108 mmol/L [facility] Carbon Dioxide 28 22 - 29 mmol/L [facility] Anion Gap 11(L) 12 - 20 [facility] Urea Nitrogen (BUN) 23(H) 9 - 16 mg/dL [facility] Creatinine, Serum 0.91 0.5 - 1.4 mg/dL [facility] Estimated Glomerular Filt Rate >60 [facility] Comment:Chronic Kidney Disea se: Estimated GFR < 60 mL/min/1.39t1Ofzjlg Kidney Disease: Estimated GFR < 15 mL/min/1.73m2 Glucose 159(H) 60 - 115 mg/dL [facility] Calcium 9.8 8.4 - 10.2 mg/dL [facility] Blood Venous blood specimen / Unknown 06/23/2024 2:59 PM EDT 06/23/2024 3:55 PM EDT us Martin Gomez MD LAB BLOOD ORDERABLES Final Resul t [facility] [address] [place] [phone] * (ABNORMAL) POCT HGB A1C (06/23/2024 [...] 11:12 AM EST) Creatinine, Urine 48.91 mg/dL [facility] Microalbumin Urine <5.0 mg/L [facility] Microalbum Creatinine Ratio Ur TNP <30 ug/mg cr [facility] Comment:Unable to calculate albumin/creatinine ratio due to lowmicroalbumin or creatinine result. Urine (Urine, Random) 02/08/2024 11:12 AM EST 02/08/2024 1:09 PM EST us Martin Gomez MD LAB URINE ORDERABLES Final Resul t [facility] [address] [place] [phone] * Lipid Panel, Standard (02/08/2024 11:12 AM EST) Triglycerides 50 <150 mg/dL [facility] Comment:Desirable Triglyceri de: less than 150 mg/dLBorderline High Triglyceride 150-199 mg/dLHigh Triglyceride: 200-499 mg/dLVery High Triglyceride: greater than or equal to 5OO mg/dL Cholesterol 139 <200 mg/dL [facility] Comment:Desirable Cholestero l: less than 200 mg/dLBorderline High Cholesterol: 200-239 mg/dLHigh Cholesterol: greater than 239 mg/dL LDL Cholesterol Calculated 68 <100 mg/dL [facility] Comment:Desirable LDL: less than 100 mg/dLNear Optimal/Above Optimal LDL: 110- 129 mg/dLBorderline High LDL: 130-159 mg/dLHigh LDL: 160-189 mg/dLVery High LDL: greater than or equal to 190 mg/dL HDL Cholesterol 61 >40 mg/dL [facility] Comment:Desirable HDL: great er than 40 mg/dL Note: This HDL assay may give artificially low results in patients with liver disease. Blood Venous blood specimen / Unknown 02/08/2024 11:12 AM EST 02/08/2024 1:09 PM EST Result Guanaco Gomez MD LAB BLOOD ORDERABLES Final Resul t Performing Organization Address City/[facility]/ZIP Co de Phone Number [facility] [address] [place] [phone] * (ABNORMAL) Hm Colonoscopy (07/06/2023) Pathologist [facility] Colonoscopy Abnormal(A ) Normal Result [facility] Martin Gomez MD HEALTH MAINTENANCE Final Result * Hepatitis C Viral RNA, Quantitative, Real-Time PCR (12/16/2022 2:33 PM EDT) [facility] Hepatitis C Viral Load <15 NOT DETECTED NOT DETECTED IU/mL [facility] HCV Log PCR <1.18 NOT DETECTED NOT DETECTED Log IU/mL [facility] Comment:This test was perfor med using Real-Time Polymerase ChainReaction.Reportable Range: 15 IU/mL to 100,000,000 IU/mL(1.18 Log IU/mL to 8.00 Log IU/mL).The analytical performance characteristics of thisassay have been determined by [employer].The modifications have not been cleared or approved bythe FDA. This assay has been validated pursuant to theCLIA regulations and is used for clinical purposes.For more information on this test, go to:http://education.aisle411/faq/BLS06s8(This link is being provided for informational/educational purposes only.)THIS TEST WAS PERFORMED AT:[facility] [place] [phone] CORTÉS MD 12/16/2022 2:33 PM EDT 12/16/2022 2:34 PM EDT Result [facility] External Provider LAB BLO OD ORDERABLES Final Result Performing Organization Address City/[facility]/ZIP Co de Phone Number [facility] [address] [place] [phone] from Last 3 Months or Most Recently Relevant to Health Maintenance Insurance [facility] [employer] (HMO D-SNP) [place] [id number] Care Teams Warble Saw Operator Relationship Specialty Start Date End Date Name, MD Martin [address] [place], [place] PCP - General Family Medicine 03/02/18 Asha Lowery PharmD [address] [place], [place] Pharmacist Internal Medicine 06/27/22
== END 2024-06-23 14:58 | disposition home or self-care (01) ==
LOC: HO.HHCL 14:57
PROVIDERS: Visit Provider Internal Medicine Geriatric Medicine
DX: E11.69 Type 2 diabetes mellitus with other specified complication (principal); F41.8 Other specified anxiety disorders; K21.9 Gastro-esophageal reflux disease without esophagitis; R10.10 Upper abdominal pain, unspecified
CPT/HCPCS: 36415; 80048; 99212

== ENCOUNTER 2024-11-10 08:29 | Outpatient (REF) | payer OTHER, SELFPAY ==
--- OUTSIDE RECORDS SUMMARY | 2024-11-10 09:32 | XMS_ITS | Encounter Summary ---
Author Organization [employer] Address [address] [facility] [address] [place] [address] Care Team Providers Care Professor Of Engineering Name Role Phone Name, Martin MICHAEL Primary Care Provider [phone] Asha Lowery PharmD Unavailable [phone] Reason for Visit * Reason Onset Date Comments Med Refill 03/17/2024 Encounter Details Date Type Department Care Team ([facility] Contact Info) Description 03/17/2024 Telephone [facility] MED[facility]INE [address] [place] [address] Name, MD Martin [address] [place] [address] Med Refill Social History Tobacco Use Types [...] tablet FreeStyle lancets To be sent to: [facility]/pharmacy #[id number] documented in this encounter Plan of Treatment Upcoming Encounters Date Type Department Care Team (Late st Contact Info) Description 11/30/2024 2:30 PM EDT Medication Management [facility] [address] [place], [place] [phone] Asha Lowery, PharmD [address] [place] [address] documented as of this encounter Goals Goal Patient Goal Type Associated Problems Recent Progress Patient-Stated? Author Patient will adhere to medication regimen General No Asha Lowery PharmD Hemoglobin A1c < 7.5 Result Component 8(10/11/2024 3:36 PM EDT) No Asha Lowery PharmD Record [...] documented as of this encounter Care Teams Professor Of Engineering Relationship Specialty Start Date End Date Name, MD Martin [address] [place] [address] PCP - General Family Medicine 03/02/18 Asha Lowery PharmD [address] [place] [address] Pharmacist Internal Medicine 06/27/22 documented as of this encounter
--- OUTSIDE RECORDS SUMMARY | 2024-11-10 09:32 | XMS_ITS | Encounter Summary ---
Author Organization [employer] Address [address] [facility] [address]t h Floor [place] [phone] Care Team Providers Care Lobby Porter Name Role Phone Name, Martin MICHAEL Primary Care Provider [phone] Asha Lowery PharmD Unavailable [phone] Encounter Details Date Type Department Care Team (Late Contact Info) Description 07/17/2022 Abstract [facility] MEDICINE [address] [place] [phone] Name, MD Martin [address] [place] [phone] Social History Tobacco Use Types Packs/Day Years [...] as of this encounter Plan of Treatment Upcoming Encounters Date Type Department Care Team (Late Contact Info) Description 11/30/2024 2:30 PM EDT Medication Management [facility] [address] [place] [phone] Asha Lowery, PharmD [address] [place] [address] documented as of this encounter Goals Goal Patient Goal Type Associated Problems Recent Progress Patient-Stated? Author Hemoglobin A1c < 7.5 Result Component 8(10/11/2024 3:36 PM EDT) No Asha Lowery, PharmD documented as of this encounter Visit Diagnoses Not on filedocumented in this encounter Additional Health Concerns Assessment Noted Time PHQ-9 Depression Total Score: 0 02/27/20 22 9:16 AM EST documented as of this encounter Care Teams Lobby Porter Relationship Specialty Start Date End Date Name, MD Martin [address] [place] [address] PCP - General Family Medicine 03/02/18 Asha Lowery, RamseyD [address] [place] [address] Pharmacist Internal Medicine 06/27/22 documented as of this encounter
--- OUTSIDE RECORDS SUMMARY | 2024-11-10 09:32 | XMS_ITS | Encounter Summary ---
Author Organization [employer] Address [address] [facility] 7t [place] [address] Care Team Providers Care Clerk Stenographer Name Role Phone Name, Martin MICHAEL Primary Care Provider [phone] Asha Lowery PharmD Unavailable [phone] Encounter Details Date Type Department Care Team (Late Contact Info) Description 05/14/2022 Orders Only [facility] [address] [place] [address] Paola Cash LPN Social History Tobacco Use [...] Medication Management [facility] MEDICINE [address] [place] [address] Asha Lowery, PharmD [address] [place] [address] documented as of this encounter Visit Diagnoses Not on filedocumented in this encounter Additional Health Concerns Assessment Noted Time PHQ-9 Depression Total Score: 0 02/27/20 22 9:16 AM EST documented as of this encounter Care Teams Clerk Stenographer Relationship Specialty Start Date End Date Name, MD Martin [address] [place] [address] PCP - General Family Medicine 03/02/18 Asha Lowery PharmD [address] [place] [address] Pharmacist Internal Medicine 06/27/22 documented as of this encounter
--- OUTSIDE RECORDS SUMMARY | 2024-11-10 09:32 | XMS_ITS | Encounter Summary ---
Author Organization [employer] Address [address] [facility] 7t [place] [address] Care Team Providers Care Regional Trainer Name Role Phone Name, Martin MICHAEL Primary Care Provider [phone] Asha Lowery PharmD Unavailable [phone] Reason for Visit * Reason Onset Date Comments Med Refill 11/02/2024 Encounter Details Date Type Department Care Team ([facility] Contact Info) Description 11/02/2024 Telephone [facility] MEDICINE [address] [place] [address] Name, MD Martin [address] [place] [address] Med Refill Social History Tobacco Use Types Packs/Day Years Used Date Smoking Tobacco: Former Cigarettes Passive Smoke Exposure: Past Smokeless Tobacco: Former Alcohol Use Standard Drinks/Week Comments Never 0 (1 standard drink = 0.6 oz pur e alcohol) Alcohol Answer Date Recorded Frequency of Alcohol Consumption Not on file 11/17/2023 Average Number of Drinks Not on file 024 Frequency of Binge Drinking Not on file 10/31 Score 0 11/17/2023 Depression Answer Date Recorded Patient Health Questionnaire-9 Score 6 10/11/2024 Patient Health Questionnaire-9 Score 6 10/11/2024 Last PHQ-9: Questionnaire Data Not on file 0 10/11/2024 Housing Stability Answer Date Recorded What is your housing situation today? I have feliciano turner 10/04/[address] you li ve. Do you have problems with any of the following? None of the above 10/04/2024 Food Insecurity Answer Date Recorded Within the past 12 months, y ou worried that your food would run out before you got money to buy more: Never True 10/04/2024 Within the past 12 months,th e food you bought just didn't last and you didn't have enough money to get more: Never True 06/2024 Transportation Answer Date Recorded In the past 12 months, has l ack of transportation kept you from medical appts, meetings, work or from getting things needed for daily living? No 10/04/2024 Utilities Answer Date Recorded In the past 12 months, has t he electric, gas, oil or water company threatened to shut off services in your home? No 10/04/2024 Depression Answer Date Recorded Patient Health Questionnaire-2 Score 3 10/11/2024 Internet Access Answer Date Recorded Internet Access Q1 Yes 10/04/2024 Internet Access Q2 Not on file 10/04/2024 Sex and Gender Information Value Date Recorded Sex Assigned at Male 12/30/2021 10:33 AM EDT Legal Sex Male 10:33 AM EDT Gender Identity Male 12/30/2021 10:33 AM EDT Sexual Orientation Straight 12/30/2021 10 :33 AM EDT documented as of this encounter Miscellaneous Notes * Telephone Encounter - Paola Cash LPN - 11/02/2024 2:24 PM EDT Medication pended to PCP. * Telephone Encounter - Lupis Rosales - 11/02/2024 2:05 PM EDT TC from pt requesting medication refill. Medications needing refill : pregabalin (Lyrica) 75 MG capsule To be sent to: [id number] [place], [place] - [address] [place] [address] documented in this encounter Plan of Treatment Upcoming Encounters Date Type Department Care Team (Late st Contact Info) Description 11/30/2024 2:30 PM EDT Medication Management [facility] MED[facility] [address] [place] [address] Asha Lowery, PharmD [address] [place] [address] documented as of this encounter Goals Goal [...] Assessment Noted Time PHQ-9 Depression Total Score: 6 10/12/19 25 4:05 PM EDT documented as of this encounter Care Teams Regional Trainer Relationship Specialty Start Date End Date Name, MD Martin [address] [place] [address] PCP - General Family Medicine 03/02/18 Asha Lowery PharmD [address] [place] [address] Pharmacist Internal Medicine 06/27/22 documented as of this encounter
--- OUTSIDE RECORDS SUMMARY | 2024-11-10 09:32 | XMS_ITS | Encounter Summary ---
Author Organization [employer] Address [address] [facility] 7t [place] [address] Care Team Providers Care Vp Customer Development Name Role Phone Name, Martin MICHAEL Primary Care Provider [phone] Asha Lowery PharmD Unavailable [phone] Reason for Visit * Reason Comments Med Refill Encounter Details Date Type Department Care Team ([facility] st Contact Info) Description 05/11/2024 Refill [facility] MED[facility]INE [address] [place] [address] Name, MD Martin [address] [place] [address] Social History Tobacco Use Types Packs/Day Years [...] Description 11/30/2024 2:30 PM EDT Medication Management [facility] MEDICINE [address] [place] [address] Puia, Asha, PharmD [address] [place] [address] documented as of this encounter Goals Goal Patient Goal Type Associated Problems Recent Progress Patient-Stated? Author Patient will adhere to medication regimen General No Puia, Asha, PharmD Hemoglobin A1c < 7.5 Result Component 8(10/11/2024 3:36 PM EDT) No Puia, Asha, PharmD Record [...] documented as of this encounter Care Teams Vp Customer Development Relationship Specialty Start Date End Date Name, MD Martin [address] [place] [address] PCP - General Family Medicine 03/02/18 Asha Lowery, RamseyD [address] [place] [phone] Pharmacist Internal Medicine 06/27/22 documented as of this encounter
--- OUTSIDE RECORDS SUMMARY | 2024-11-10 09:32 | XMS_ITS | Encounter Summary ---
Author Organization [employer] Address [address] [place] [address] 7t [place] [address] Care Team Providers Care Venetian Blind Washer Name Role Phone Name, Martin MICHAEL Primary Care Provider [phone] Asha Lowery PharmD Unavailable [phone] Encounter Details Date Type Department Care Team (Late st Contact Info) Description 02/11/2022 Orders Only [facility] [address] [place] [address] Ria Campbell LPN Social History Tobacco Use [...] Description 11/30/2024 2:30 PM EDT Medication Management [facility] MEDICINE [address] [place] [address] PuiaAimeAsha, PharmD [address] [place] [address] documented as of this encounter Visit Diagnoses Not on filedocumented in this encounter Care Teams Venetian Blind Washer Relationship Specialty Start Date End Date Name, MD Martin [address] [place] [address] PCP - General Family Medicine 03/02/18 PuiaAimeAsha, PharmD [address] [place] [address] Pharmacist Internal Medicine 06/27/22 documented as of this encounter
--- OUTSIDE RECORDS SUMMARY | 2024-11-10 09:32 | XMS_ITS | Encounter Summary ---
Author Organization [employer] Address [address] [place] [address] [address] [place] [address] Care Team Providers Care Vulcanizer Rubber Plate Name Role Phone Name, Martin MICHAEL Primary Care Provider [phone] Asha Lowery PharmD Unavailable [phone] Encounter Details Date Type Department Care Team (Latest Contact Info) Description 09/13/2018 Abstract [facility] CONVERSIONS Dental, Provider, DDS Social History Tobacco [...] Upcoming Encounters Date Type Department Care Team ( st Contact Info) Description 11/30/2024 2:30 PM EDT Medication Management [facility] MEDICINE [address] [place] [address] PuiaAimeAsha, PharmD [address] [place] [address] documented as of this encounter Visit Diagnoses Not on filedocumented in this encounter Care Teams Vulcanizer Rubber Plate Relationship Specialty Start Date End Date Name, MD Martin [address] [place] [address] PCP - General Family Medicine 03/02/18 Puia, Asha, PharmD [address] [place] [address] Pharmacist Internal Medicine 06/27/22 documented as of this encounter
--- OUTSIDE RECORDS SUMMARY | 2024-11-10 09:32 | XMS_ITS | Encounter Summary ---
Author Organization [employer] Address [address] [facility] 7t [place] [address] Care Team Providers Care Director Of Government Sales Name Role Phone Name, Martin MICHAEL Primary Care Provider [phone] Asha Lowery PharmD Unavailable [phone] Reason for Visit * Reason Onset Date Comments Med Refill 09/20/2024 Encounter Details Date Type Department Care Team ([facility] Contact Info) Description 09/20/2024 Telephone [facility] MEDICINE [address] [place] [address] Name, MD Martin [address] [place] [address] Med Refill Social History Tobacco Use Types [...] Telephone Encounter - Paola Cash LPN - 09/20/2024 11:42 AM EDT Medication requested has refills. * Telephone Encounter - Martin Vergara - 09/20/2024 11:37 AM EDT Tc from pt reporting that his sensor fell while showering and does not have anymore. Pt cannot waituntil the and is requesting for a refill now. [facility]/pharmacy #[id number] documented in this encounter Plan of Treatment Upcoming Encounters Date Type Department Care Team (Late st Contact Info) Description 11/30/2024 2:30 PM EDT Medication Management [facility] MEDICINE [address] [place], [place] [phone] Asha Lowery, PharmD [address] [place], [place] [phone] documented as of this encounter Goals Goal [...] documented as of this encounter Care Teams Director Of Government Sales Relationship Specialty Start Date End Date Name, MD Martin [address] [place] [address] PCP - General Family Medicine 03/02/18 Asha Lowery PharmD [address] [place] [address] Pharmacist Internal Medicine 06/27/22 documented as of this encounter
--- OUTSIDE RECORDS SUMMARY | 2024-11-10 09:32 | XMS_ITS | Encounter Summary ---
Author Organization [employer] Address [address] [facility] 7t [place] [address] Care Team Providers Care Membership Secretary Name Role Phone Name, Martin MICHAEL Primary Care Provider [phone] Asha Lowery PharmD Unavailable [phone] Reason for Visit * Reason Comments Med Refill Encounter Details Date Type Department Care Team ([facility] st Contact Info) Description 02/12/2023 Refill [facility] MEDICINE [address] [place] [address] Name, MD Martin [address] [place] [address] Diabetes mellitus type 2 with complications ([facility]/HCC) Social History Tobacco Use Types Packs/Day [...] Description 11/30/2024 2:30 PM EDT Medication Management [facility] MED[facility]INE [address] [place], [place] [phone] Asha Lowery PharmD [address] [place] [address] documented as of this encounter Goals Goal [...] Diagnosis Diabetes mellitus type 2 with complications ([facility]) documented in this encounter Additional Health Concerns Assessment Noted Time PHQ-9 Depression Total Score: 20 023 12:12 PM EDT documented as of this encounter Care Teams Membership Secretary Relationship Specialty Start Date End Date Name, MD Martin [address] [place] [phone] PCP - General Family Medicine 03/02/18 Asha Lowery, PharmD [address] [place] [phone] Pharmacist Internal Medicine 06/27/22 documented as of this encounter
--- OUTSIDE RECORDS SUMMARY | 2024-11-10 09:32 | XMS_ITS | Clinical Summary ---
Author Organization [employer] Address [address] [facility] [address] [place] [address] Care Team Providers Care Duplicating Machine Servicer Name Role Phone Name, Martin MICHAEL Primary Care Provider [phone] Asha Lowery PharmD Unavailable [phone] Allergies No known active allergies Medications * This document contains information received from the source organization and may not represent a complete record from that organization. Multiple Vitamins-Mineral s (Centrum Silver 50+Men) tablet Take 1 tablet by mouth Once daily. OTC Active glucose 4 g chewable tabletIndication s:Diabetes mellitus type 2 with complications (CMS/[facility]) Chew 4 tablets as needed & as directed for low blood sugar (<70 mg/dL) 20 tablet 11 023 Active FreeStyle lancets INJECT 1 [address] SU[address]UT[address] ROUTE 3 TIMES EVERY DAY 100 each 11 024 Active pantoprazole (ProtoNix) 20 MG EC tablet 024 Active empagliflozin (Jardiance) 25 MGIndications:Ty pe 2 diabetes mellitus with other specified complication, unspecified whether fci insulin use (CMS/[facility]) Take 1 tablet (25 mg) by mouth Once per day. 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 60 tablet 11 025 2025 Active Ozempic, 1 MG/DOSE, 4 MG/3ML solution pen-injectorIndi cations:Type 2 diabetes mellitus with other specified complication, with long-term current use of insulin (CMS/[facility]) INJECT 1 MG UNDER THE SKIN 1 (ONE) TIME PER WEEK. 3 mL 025 Active Continuous Glucose Housekeeping Cleaner (FreeStyle Jermaine 3 Fishers) device 1 each Once per day. Use as directed for CGM 1 each 025 Active famotidine (Pepcid) 40 MG tablet TOME NERY TABLETA POR V A ORAL AL ACOSTARSE 025 Active latanoprost (Xalatan) 0.005 % ophthalmic solution instill 1 drop into both eyes every night at bedtime Active metFORMIN (Glucophage) 500 MG tablet Take 1 tablet (500 mg) by mouth with breakfast and with evening meal. 60 tablet 025 2025 Active glucose blood (FreeStyle Precision Abisai Test) test strip Use to test blood sugar 3 times daily in case of CGM failure or extremes of BG 100 each Active Continuous Glucose Sensor (FreeStyle Jermaine 3 Plus Sensor) misc Apply 1 every 15 days as directed for CGM 2 each Active insulin glargine (Lantus SoloStar) 100 UNIT/ML penIndications:T ype 2 diabetes mellitus with other specified complication, with long-term current use of insulin (CMS/[facility]) Inject 22 Units under the skin in the morning. 15 mL 5 025 Active lisinopril 10 MG tablet TAKE 1 TABLET BY MOUTH EVERY DAY 90 tablet 1 025 Active insulin aspart (NovoLOG FLEXPEN) 100 UNIT/ML penIndications:T ype 2 diabetes mellitus with other specified complication, with long-term current use of insulin (CMS/HCC) Inject 12 units subQ with breakfast, 4 units with lunch & 6 units with dinner 025 Active sertraline (Zoloft) 50 MG tablet TOME 1 TABLETA POR VIA ORAL TODOS LOS ALLEN 90 tablet 1 025 Active pioglitazone (Actos) 15 MG tablet TAKE 1 TABLET BY MOUTH EVERY DAY 90 tablet 3 025 Active pregabalin (Lyrica) 75 MG capsuleIndicatio ns:Chronic pain syndrome TAKE 1 CAPSULE BY MOUTH AT BEDTIME 30 capsule 1 025 Active pioglitazone (Actos) 15 MG tablet Take 1 tablet (15 mg) by mouth Once per day. 30 tablet 11 024 2024 Discontinued pregabalin (Lyrica) 75 MG capsuleIndicatio ns:Chronic pain syndrome TOME 1 CAPSULA POR VIA ORAL TODOS LOS ALLEN AL ACOSTARSE 30 capsule 1 025 2024 Discontinued Active Problems Problem Noted Date Diagnosed Date [...] to be assigned with a therapist from [facility] ([phone]). Referral placed on 11/24. Recommended incorporating coping skills into his daily routine. At this time Gonzales Flannery meets criteria for Visit Diagnoses: Problem List Items Addressed This Visit Other Depression, unspecified Uncomplicated bereavement Patient ready to address current needs Yes Strengths include cultural identity and motivation to change PLAN: 1. Follow up with [facility]: Not recommended for follow-up 2. Patient goal [...] to be assigned with a therapist from [facility] ([phone]). Referral placed on 11/24. Recommended incorporating coping skills into his daily routine. At this time Gonzales Flannery meets criteria for Visit Diagnoses: Problem List Items Addressed This Visit Other Depression, unspecified Uncomplicated bereavement Patient ready to address current needs Yes Strengths include cultural identity and motivation to change PLAN: 1. Follow up with [facility]: Not recommended for follow-up 2. Patient goal [...] recurrent major depressive disorder, without psychotic features (CMS/HCC) - Primary Adjustment disorder with mixed anxiety and depressed mood Relevant Orders Referral to Behavioral Health Patient ready to address current needs Yes Strengths include cultural identity and willingness to change. PLAN: 1. Follow up with [facility]: Not recommended for follow-up 2. Patient goal [...] Encounters Date Type Department Care Team Description 11/02/2024 Telephone [facility] [address] [place] [phone] Name, MD Martin Med Refill 11/02/2024 Refill [facility] [address] [place] [address] Martin Gomez MD Chronic pain syndrome 11/01/2024 Refill [facility] [address] [place] [phone] Martin Gomez MD 10/11/2024 3:15 PM EDT Office Visit [facility] [address] [place] [phone] Martin Gomez MD Type 2 diabetes mellitus with other specified complication, with long-term current use of insulin ([facility]) (Primary Dx) 10/11/2024 Travel 10/04/2024 Patient Outreach [facility] [address] [place] [address] Martin Gomez MD Pre-visit Planning (SDOH negative. Tobacco screening negative. ) 10/04/2024 Telephone [facility] [address] [place] [phone] Martin Gomez MD Med Refill 10/01/2024 Refill [facility] [address] [place] [address] Martin Gomez MD 09/22/2024 Travel 09/20/2024 Telephone [facility] [address] [place] [phone] Martin Gomez MD Med Refill 09/14/2024 Refill [facility] [address] [place] [address] Martin Gomez MD 08/27/2024 Refill [facility] [address] [place] [phone] Martin Gomez MD Chronic pain syndrome 08/24/2024 Telephone [facility] [address] [place] [phone] Martin Gomez MD Medication Question 08/17/2024 Telephone [facility] [address] [place] [phone] Martin Gomez MD 08/16/2024 Travel from Last 3 Months Immunizations Immunization Administration Dates Next Due Hep B, adult [...] Passive Smoke Exposure: Past Smokeless Tobacco: Former Tobacco Cessation:Counseling Given: Not Answered Alcohol Use [...] Sign Reading Time Taken Comments Blood Pressure 134/70 10/11/2024 3:35 PM EDT Pulse 89 10/11/2024 3:35 PM EDT Temperature 36.8 C (98.3 F) 10/11/2024 3:35 PM EDT Respiratory Rate 16 10/11/2024 3:35 PM EDT Oxygen Saturation 95% 10/11/2024 3:35 PM EDT Inhaled Oxygen Concentration - - Weight 64.9 kg (143 lb) 10/11/2024 3:35 PM EDT Height 167.6 cm (5' 6 ) 10/11/2024 3:35 PM EDT Body Mass Index 23.08 10/11/2024 3:35 PM EDT Plan of Treatment Upcoming Encounters Date Type Department Care Team (Late st Contact Info) Description 11/30/2024 2:30 PM EDT Medication Management [facility] [address] [place] [address] eDeiaAsha, PharmD [address] [place] [address] Health Maintenance Due Date Last Done Comments CT Colonography 1950 FIT DNA/Cologuard 1950 FIT 1950 FOBT 1950 Sigmoidoscopy 1950 Zoster Vaccines (1 of 2) 01/26/2000 RSV Patients and Patients Aged 60 years or older (1 - Risk 60-74 years 1-dose series) 2010 COVID-19 Vaccine ( season) 2024 02/07/2021, 08/08/2020, 07/11/2020 Influenza Vaccine (#1) 2024 , 11/23/2018, 01/11/2018 Diabetes: Foot Exam 11/16/2024 11/17/2023, 11/17/2023, 11/17/2023, Additional history exists Diabetes: Hemoglobin A1C 01/11/2025 025, 09/22/2024, 06/23/2024, Additional history exists Diabetes: Urine Protein Screening 02/07/2025 02/08/2024, 03/04/2022, 07/30/2021, Additional history exists Lipid Panel 02/07/2025 02/08/2024, 04/2022, 07/30/2021, Additional history exists Eye Exam 03/17/2025 03/17/2023 SDOH Screening 10/04/2025 10/04/2024 Alcohol/Substance Use Screening 10/11/2025 10/11/2024 Depression Screening 10/11/2025 10/11/2024, 10/12/19 25 Tobacco Screening 10/11/2025 10/11/2024 Colonoscopy 07/05/2028 07/06/2023 Colorectal Cancer Screening 07/05/2028 [...] patient's age to complete this topic Meningococcal B Vaccine Aged Out No l onger eligible based on patient's age to complete [...] Diagnosis Comments POCT GLYCATED HEMOGLOBIN, TOTAL Routine 10/11/2024 3:36 PM EDT Type 2 diabetes mellitus with other specified complication, with long-term current use of insulin ([facility]) POCT GLUCOSE Routine 10/11/2024 3:36 PM EDT Type 2 diabetes mellitus with other specified complication, with long-term current use of insulin ([facility]) POCT GLYCATED HEMOGLOBIN, TOTAL Routine 09/22/2024 2:37 PM EDT Type 2 diabetes mellitus with other specified complication, with long-term current use of insulin (CMS/[facility]) ALBUMIN, RANDOM URINE W/CREATININE Routine 02/08/2024 11:12 AM EST Type 2 diabetes mellitus with other specified complication, with long-term current use of insulin ([facility]) Anxiety Hypoglycemia LIPID PANEL, STANDARD Routine 02/08/2024 11:12 AM EST Type 2 diabetes mellitus with other specified complication, with long-term current use of insulin ([facility]) Anxiety Hypoglycemia HM COLONOSCOPY Routine 07/06/2023 HEPATITIS C VIRAL RNA, QUANTITATIVE, REAL-TIME PCR Routine 12/16/2022 2:33 PM EDT from Last 3 Months or Most Recently Relevant to Health Maintenance Results * (ABNORMAL) POCT HGB A1C (10/11/2024 3:36 PM EDT) Only the most recent of2 resultswithin the time period is included. Pathologist [facility] Hemoglobin A1C 8.0(A) 4.0 - 5.7 % QC Media Lot # [id number] Lot# Expiration Date Blood 10/11/2024 3:36 PM EDT us Martin Gomez MD POINT OF CARE TEST ENTER/EDIT OR DERABLES Final Result * POCT Glucose (10/11/2024 3:36 PM EDT) Glucose Blood, POC 198 60 - 200 mg/dL QC Media Lot # [id number] Lot# Expiration Date Blood Capillary blood specimen / Unknown 10/11/2024 3:36 PM EDT us Martin Gomez MD POINT OF CARE TEST ENTER/EDIT OR DERABLES Final Result * Albumin, Random Urine W/Creatinine (02/08/2024 11:12 AM EST) Creatinine, Urine 48.91 mg/dL [facility] Microalbumin Urine <5.0 mg/L [facility] Microalbum Creatinine Ratio Ur TNP <30 ug/mg cr [facility] Comment:Unable to calculate albumin/creatinine ratio due to lowmicroalbumin or creatinine result. Urine (Urine, Random) 02/08/2024 11:12 AM EST 02/08/2024 1:09 PM EST us Martin Gomez MD LAB URINE ORDERABLES Final Resul t [facility] [address] [place] [phone] * Lipid Panel, Standard (02/08/2024 11:12 AM EST) Triglycerides 50 <150 mg/dL [facility] Comment:Desirable Triglyceri de: less than 150 mg/dLBorderline High Triglyceride 150-199 mg/dLHigh Triglyceride: 200-499 mg/dLVery High Triglyceride: greater than or equal to 5OO mg/dL Cholesterol 139 <200 mg/dL [facility] Comment:Desirable Cholestero l: less than 200 mg/dLBorderline High Cholesterol: 200-239 mg/dLHigh Cholesterol: greater than 239 mg/dL LDL Cholesterol Calculated 68 <100 mg/dL [facility] Comment:Desirable LDL: less than 100 mg/dLNear Optimal/Above Optimal LDL: 110- 129 mg/dLBorderline High LDL: 130-159 mg/dLHigh LDL: 160-189 mg/dLVery High LDL: greater than or equal to 190 mg/dL HDL Cholesterol 61 >40 mg/dL [facility] Comment:Desirable HDL: great er than 40 mg/dL Note: This HDL assay may give artificially low results in patients with liver disease. Blood Venous blood specimen / Unknown 02/08/2024 11:12 AM EST 02/08/2024 1:09 PM EST us Martin Gomez MD LAB BLOOD ORDERABLES Final Resul t [facility] [address] [place] [phone] * (ABNORMAL) Hm Colonoscopy (07/06/2023) Pathologist [facility] Colonoscopy Abnormal(A ) Normal us Martin Gomez MD HEALTH MAINTENANCE Final Result * Hepatitis C Viral RNA, Quantitative, Real-Time PCR (12/16/2022 2:33 PM EDT) Pathologist [facility] Hepatitis C Viral Load <15 NOT DETECTED NOT DETECTED IU/mL [facility] HCV Log PCR <1.18 NOT DETECTED NOT DETECTED Log IU/mL [facility] Comment:This test was perfor med using Real-Time Polymerase ChainReaction.Reportable Range: 15 IU/mL to 100,000,000 IU/mL(1.18 Log IU/mL to 8.00 Log IU/mL).The analytical performance characteristics of thisassay have been determined by [employer].The modifications have not been cleared or approved bythe FDA. This assay has been validated pursuant to theCLIA regulations and is used for clinical purposes.For more information on this test, go to:http://[email or web address].Trusper/faq/[email or web address](This link is being provided for informational/educational purposes only.)THIS TEST WAS PERFORMED AT:[facility] [place] [id number] CORTÉS MD 12/16/2022 2:33 PM EDT 12/16/2022 2:34 PM EDT [facility] External Provider LAB BLO OD ORDERABLES Final Result [facility] [address] [place] [phone] [phone] from Last 3 Months or Most Recently Relevant to Health Maintenance Insurance [facility] [employer]-TERM OPTIONS (O D-SNP) Care Teams Duplicating Machine Servicer Relationship Specialty Start Date End Date Name, MD Martin [address] [place] [address] PCP - General Family Medicine 03/02/18 Asha Lowery PharmD [address] [place] [address] Pharmacist Internal Medicine 06/27/22
[2024-11-10 12:23] LABS: Alanine Aminotransferase 21 U/L (0-40); Albumin Level 4.5 g/dL (3.5-5.0); Alkaline Phosphatase 62 U/L (39-117); Anion Gap 12 (12-20); Aspartate Amino Transferase 24 U/L (5-37); Blood Urea Nitrogen 32 mg/dL (9-16); Calcium 9.5 mg/dL (8.4-10.2); Carbon Dioxide 28 mmol/L (22-29); Chloride 103 mmol/L (96-108); Cholesterol 158 mg/dL (<200); Estimated Glomerular Filt Rate > 60; HDL Cholesterol 68 mg/dL (>40); Magnesium 2.0 mg/dL (1.6-2.6); Potassium 4.4 mmol/L (3.3-5.1); Sodium 139 mmol/L (135-145); Total Protein 7.0 g/dL (6.5-8.0); Triglycerides 62 mg/dL (<150)
[2024-11-10 12:30] LABS: Vitamin B12 453 pg/mL (200-900)
== END 2024-11-10 08:30 | disposition home or self-care (01) ==
LOC: HO.HHCL 08:29
PROVIDERS: PCP Internal Medicine Geriatric Medicine; Visit Provider Internal Medicine Geriatric Medicine
DX: E11.69 Type 2 diabetes mellitus with other specified complication (principal); F41.8 Other specified anxiety disorders; Z79.4 Long term (current) use of insulin
CPT/HCPCS: 36415; 80053; 80061; 82306; 82607; 83735

== ENCOUNTER 2024-11-29 16:59 | Emergency (ER) | payer OTHER, SELFPAY ==
--- NOTE | ~2024-11-29 | CT_ITS ---
CLINICAL HISTORY: pelvic pain hernia? prostate patholgy? CT abdomen and pelvis with contrast Comparison: None provided Findings: The lung bases are clear. Gallbladder is unremarkable. No focal hepatic lesion. Pancreas, spleen are within normal limits. 1.1 cm indeterminate right adrenal nodule is present. Left adrenal gland is unremarkable. Kidneys enhance symmetrically and are grossly non hydronephrotic. Nonobstructing calculus is in the lower pole of the right kidney. No bowel obstruction, pneumoperitoneum, or pneumatosis. The appendix is not visualized. The bones are intact. Severe degenerative changes are noted throughout the lumbar spine. IMPRESSION: No acute findings. 1.1 cm indeterminate right adrenal nodule. Routine nonemergent follow-up adrenal mass protocol CT may be helpful for further evaluation if clinically indicated. This document has been electronically signed by: Harsh Rush MD, PHD on 11/30/2024 00:37:19
[2024-11-29 17:39] VITALS: BP 130/58; PULSE 87; RESP 18; TEMP 36.9; O2SAT 97; BMI 23.4
--- NOTE | 2024-11-29 17:40 | ED.GENADULT ---
HPI - General Adult General Chief complaint: Urogenital-Male Stated complaint: Bladder pain Time Seen by Provider: 11/29/24 21:51 Source: patient Limitations: no limitations and language barrier History of Present Illness ED Provider: Shruti Hinton PA-C HPI narrative: 74-year-old male presents with suprapubic pain. Patient states that has ?bladder hurts, he has been experiencing increased urination. Associated difficulty voiding at times, he feels as if he can not completely empty his bladder. Denies dysuria, hematuria, back pain, flank pain, history of kidney stones or fever. Denies nausea vomiting diarrhea or constipation. No abdominal distention. Related Data Home Medications ?Medication ?Instructions ?Recorded ?Confirmed buspirone 7.5 mg tablet 7.5 mg PO BID 12/16/22 07/23/23 insulin aspart U-100 100 unit/mL subcut 12/16/22 07/23/23 (3 mL) subcutaneous pen (Novolog FlexPen U-100 Insulin aspart) insulin glargine 100 unit/mL (3 unit subcut 12/16/22 07/23/23 mL) subcutaneous pen (Lantus Solostar U-100 Insulin) lisinopril 10 mg tablet 10 mg PO DAILY 12/16/22 07/23/23 metformin 1,000 mg tablet 1,000 mg PO BID 12/16/22 07/23/23 pregabalin 75 mg capsule 75 mg PO DAILY 12/16/22 07/23/23 simvastatin 20 mg tablet 20 mg PO BEDTIME 12/16/22 07/23/23 empagliflozin 25 mg tablet 25 mg PO DAILY 07/23/23 07/23/23 (Jardiance) latanoprost 0.005 % eye drops drp ophthalmic (eye) 07/23/23 07/23/23 pioglitazone 15 mg tablet 15 mg PO DAILY 02/16/24 semaglutide 1 mg/dose (4 mg/3 mL) 1 mg subcut QWEEK 02/16/24 subcutaneous pen injector (Ozempic) sertraline 50 mg tablet 50 mg PO DAILY 02/16/24 Previous Rx's ?Medication ?Instructions ?Recorded acetaminophen 500 mg tablet 500 mg PO Q6H PRN pain or fever 06/22/21 (Tylenol Extra Strength) #20 tabs naproxen 500 mg tablet 500 mg PO BID PRN pain 7 days #14 04/17/23 tabs pantoprazole 20 mg tablet,delayed 40 mg (2 x 20 mg) PO DAILY #180 02/16/24 release tabs famotidine 40 mg tablet 40 mg PO BEDTIME #90 tabs 08/08/24 Allergies Allergy/AdvReac Type Severity Reaction Status Date / Time No Known Allergies (No Known Allergy Verified 11/29/24 17:40 Allergies*) Review of Systems Review of Systems: Yes all other systems are reviewed and are negative Constitutional: Constitutional: Denies fatigue and Denies fever(s) Cardiovascular: Cardiovascular: Denies chest pain and Denies dyspnea Respiratory: Respiratory: Denies dyspnea Gastrointestinal: Gastrointestinal: Reports abdominal pain, Denies constipation, Denies diarrhea, Denies nausea and Denies vomiting Genitourinary: Genitourinary: Denies hematuria, Denies dysuria, Denies flank pain, Reports urinary frequency and Reports urinary hesitancy Musculoskeletal: Musculoskeletal: Denies back pain Endocrine: Endocrine: Denies fatigue [facility] Past Medical History Attestation statement: The following information was validated with the patient. Medical History Acid reflux Dysphagia Esophagitis H. pylori infection HTN (hypertension) Diabetes Surgical History History of esophagogastroduodenoscopy (EGD) Hx of colonoscopy History of back surgery Social History Social History Household Members: Family Alcohol intake: never Patient Tobacco Use Status: Never used Tobacco Physical Exam ED Vital Signs: Vital Signs - 24 hr 11/29/24 17:39 11/29/24 21:58 11/30/24 00:41 Temperature 98.5 F 97.5 F 97.7 F Pulse Rate 87 72 65 Respiratory Rate 18 16 16 Blood Pressure 130/58 L 110/64 102/50 L Pulse Oximetry 97 99 97 Oxygen Delivery Method Room Air Room Air Room Air BMI result Body Mass Index 23.4 Const Other: Alert well-appearing Orientation/consciousness: patient oriented x3 Resp Effort & Inspection: normal respiratory effort Cardio Other: Normal peripheral perfusion GI Other: Soft, nontender no guarding no distention General: Yes no CVA tenderness Back/Spine/Pelvis Back: no CVA tenderness Skin Other: Warm dry no rash Neuro General: patient oriented x3, gait normal, no focal motor deficits and CN's II-XI intact bilaterally Psych Other: Cooperative Course Course Course Narrative: This is an RME: Additional HPI, ROS, PE not included below will be deferred to primary provider. RME assessment and note performed by: Roxi Boyd PA-C This is a 74-year-old male, with a past medical history of diabetes and GERD, who presents emergency department with complaints of lower abdominal pain x 3 days. He states that he was previously having urinary frequency, now voiding normally however still continues to have suprapubic pain. Plan: Labs, UA, further ER evaluation needed. Medications Administered Discontinued Medications Generic Name Dose Route Start Last Admin Trade Name Freq PRN Reason Stop Dose Admin Dextrose 25 gm 11/29/24 23:16 11/29/24 23:17 Dextrose 50 % 25 Gm/50 Ml Syringe IVPUSH 11/29/24 23:17 25 gm ONCE ONE Administration Iohexol 85 ml 11/29/24 23:35 11/29/24 23:37 Iohexol 350 Mg/Ml 100 Ml Infus..Btl IV 11/29/24 23:36 85 ml ONCE ONE Administration Medical Decision Making Medical Decision Making MDM Narrative: 74-year-old male with a history of diabetes, GERD, hemorrhoids presents with suprapubic pain. Patient states that has ?bladder hurts, he has been experiencing increased urination. Associated difficulty voiding at times, he feels as if he can not completely empty his bladder. Denies dysuria, hematuria, back pain, flank pain, history of kidney stones or fever. Denies nausea vomiting diarrhea or constipation. No abdominal distention. Problem: Age History: Per patient I have considered the following differential diagnoses: Renal colic, UTI, urinary retention, pyelonephritis, BPH, Plan: Patient here with a increased urinary frequency and urgency, he likely has BPH, screening labs collected, we need a urine sample. Given his age, I will obtain a CT scan. Likely not pyelo, he has no CVA tenderness. The patient is not having any flank pain or dysuria/hematuria, likely not renal colic. I have independently reviewed the following tests: Labs: No leukocytosis, not anemic, no electrolyte abnormality, urine is not infected CT abdomen and pelvis indings: The lung bases are clear. Gallbladder is unremarkable. No focal hepatic lesion. Pancreas, spleen are within normal limits. 1.1 cm indeterminate right adrenal nodule is present. Left adrenal gland is unremarkable. Kidneys enhance symmetrically and are grossly non hydronephrotic. Nonobstructing calculus is in the lower pole of the right kidney. No bowel obstruction, pneumoperitoneum, or pneumatosis. The appendix is not visualized. The bones are intact. Severe degenerative changes are noted throughout the lumbar spine. IMPRESSION: No acute findings. 1.1 cm indeterminate right adrenal nodule. Routine nonemergent follow-up adrenal mass protocol CT may be helpful for further evaluation if clinically indicated. Differential Diagnosis Differential Diagnoses: The differential diagnosis associated with the presentation includes See medical decision-making Admission/Observation Consideration of admission/observation: Escalation of care including admission/observation considered Not applicable Lab Data MDM Lab Attestation statement: I reviewed the patient's lab results. 11/29/24 19:03 11/29/24 19:03 Labs: Lab Results 11/29/24 11/29/24 Range/Units 19:03 23:41 WBC 6.3 (4.8-10.8) X10*3/uL RBC 4.45 L (4.60-5.80) X10*6/uL Hgb 13.2 L (14.0-18.0) g/dl Hct 38.5 L (42.0-52.0) % MCV 86.5 (80.0-98.0) fL MCH 29.7 (27.0-33.0) pg MCHC 34.3 (31.0-36.0) g/dl RDW 13.2 (11.0-16.0) % Plt Count 192 (160-400) X10*3/uL MPV 10.3 (9.4-12.4) fL Immature Gran % (Auto) 0.3 (0.0-0.4) % Neut % (Auto) 71.0 (45-73) % Lymph % (Auto) 22.6 (20-40) % [place] % (Auto) 5.7 (2-11) % Eos % (Auto) 0.2 (0-4) % Baso % (Auto) 0.2 (0-2) % Lymph # (Auto) 1.4 (1.2-4.9) X10*3/uL [place] # (Auto) 0.4 (0.1-1.2) X10*3/uL Eos # (Auto) 0.0 (0.0-0.4) X10*3/uL Baso # (Auto) 0.0 (0.0-0.2) X10*3/uL Abs Immat Gran (auto) 0.02 (0.00-0.03) X10*3/uL Absolute Neuts (auto) 4.5 (2.0-8.3) x10*3/uL Absolute Nucleated RBC 0.000 (0.0-0.012) X10*3/uL Nucleated RBC % (auto) 0.0 (0.0-0.2) /100WBC Sodium 142 (135-145) mmol/L Potassium 4.0 (3.3-5.1) mmol/L Chloride 106 (96-108) mmol/L Carbon Dioxide 28 (22-29) mmol/L Anion Gap 12 (12-20) BUN 22 H (9-16) mg/dL Creatinine 1.02 (0.5-1.4) mg/dL Estim Creat Clear Calc 57.3 Estimated GFR > 60 POC Glucose 169 H (60-115) mg/dL Random Glucose 147 H (60-115) mg/dL Calcium 9.5 (8.4-10.2) mg/dL Total Bilirubin 0.3 (0.0-1.0) mg/dL Direct Bilirubin 0.1 (0.0-0.5) mg/dL AST 24 (5-37) U/L ALT 26 (0-40) U/L Alkaline Phosphatase 65 (39-117) U/L Total Protein 7.0 (6.5-8.0) g/dL Albumin 4.5 (3.5-5.0) g/dL Lipase 30 (8-78) U/L Urine Color Yellow Urine Appearance Clear Urine pH 6.5 (5.0-9.0) Ur Specific [place] <= 1.005 (1.005-1.025) Urine Protein Negative (Neg-Trace) mg/dL Urine Glucose (UA) >=1000 H (Negative) mg/dL Urine Ketones Negative (Negative) mg/dL Urine Blood Negative (Negative) Urine Nitrite Negative (Negative) Ur Leukocyte Esterase Negative (Negative) Urine RBC 0-2 (0-2) /HPF Urine WBC 0-5 (0-5) /HPF Ur Squamous Epith Cells 0-2 (0-2) /HPF Urine Bacteria None Seen (None Seen) Hyaline Casts 0-2 (0-2) /LPF Radiology Impression Discussion of test interpretation with radiology: I have reviewed the radiologist's reading. Discharge Plan Discharge Clinical Impression: Increased urinary frequency, Adrenal nodule Patient Disposition: Home, Self-Care Instructions: Urinary Urgency and Frequency (DC) Additional Instructions: All of your screening labs were normal including the urinalysis, you do not have a urinary tract infection. The CT scan was overall normal as well. You were incidentally found to have a right sided adrenal nodule. You need outpatient follow up, call your primary care for an appointment. You will require a special imaging tests to further assess the nodule. You likely have a large prostate that has causing your urinary symptoms. We are providing you with a contact for the urology service, you can contact them for an appointment, for further assessment. Prescriptions: No Action famotidine 40 mg tablet 40 mg PO BEDTIME Qty: 90 2RF acetaminophen [Tylenol Extra Strength] 500 mg tablet 500 mg PO Q6H PRN (Reason: pain or fever) Qty: 20 0RF naproxen 500 mg tablet 500 mg PO BID PRN (Reason: pain) 7 Days Qty: 14 0RF sertraline 50 mg tablet 50 mg PO DAILY pioglitazone 15 mg tablet 15 mg PO DAILY pantoprazole 20 mg tablet,delayed release (DR/EC) 40 mg PO DAILY Qty: 180 2RF buspirone 7.5 mg tablet 7.5 mg PO BID simvastatin 20 mg tablet 20 mg PO BEDTIME lisinopril 10 mg tablet 10 mg PO DAILY pregabalin 75 mg capsule 75 mg PO DAILY insulin glargine [Lantus Solostar U-100 Insulin] 100 unit/mL (3 mL) insulin pen subcut insulin aspart U-100 [Novolog FlexPen U-100 Insulin] 100 unit/mL (3 mL) insulin pen subcut metformin 1,000 mg tablet 1,000 mg PO BID latanoprost 0.005 % drops ophthalmic (eye) Jardiance 25 mg tablet 25 mg PO DAILY Ozempic 1 mg/dose (4 mg/3 mL) pen injector 1 mg subcut QWEEK Referrals: Heriberto Byers MD [Physician, Urology] Referral Note: Increased urinary frequency/hesitancy, Interventions: ED Discharge Assessment Last Done: 11/30/24 01:50 Discharge Date/Time: 11/30/24 02:03 Print Language: Irish
[2024-11-29 19:09] LABS: Hematocrit 38.5 % (42.0-52.0); Hemoglobin 13.2 g/dl (14.0-18.0); Imm Gran Abs Auto 0.02 X10*3/uL (0.00-0.03); Imm Gran Pct Auto 0.3 % (0.0-0.4); Lymphocytes Absolute Auto 1.4 X10*3/uL (1.2-4.9); MANUAL DIFF FLAG NO; Mean Corpuscular HGB Conc 34.3 g/dl (31.0-36.0); Mean Corpuscular Hemoglobin 29.7 pg (27.0-33.0); Mean Corpuscular Volume 86.5 fL (80.0-98.0); NRBC Abs Auto 0.000 X10*3/uL (0.0-0.012); NRBC Pct Auto 0.0 /100WBC (0.0-0.2); Platelet Count 192 X10*3/uL (160-400); Red Blood Count 4.45 X10*6/uL (4.60-5.80); White Blood Count 6.3 X10*3/uL (4.8-10.8)
[2024-11-29 19:11] LABS: Appearance Urine Clear; Glucose Urine UA >=1000 mg/dL (Negative); PH 6.5 (5.0-9.0); Specific Gravity - Urine <= 1.005 (1.005-1.025); UMIC TRIGGER UACC YES
[2024-11-29 19:25] LABS: Alanine Aminotransferase 26 U/L (0-40); Albumin Level 4.5 g/dL (3.5-5.0); Alkaline Phosphatase 65 U/L (39-117); Anion Gap 12 (12-20); Aspartate Amino Transferase 24 U/L (5-37); Blood Urea Nitrogen 22 mg/dL (9-16); Calcium 9.5 mg/dL (8.4-10.2); Carbon Dioxide 28 mmol/L (22-29); Chloride 106 mmol/L (96-108); Creatinine Clr Calc Pharmacy 57.3; Estimated Glomerular Filt Rate > 60; Lipase 30 U/L (8-78); Potassium 4.0 mmol/L (3.3-5.1); Sodium 142 mmol/L (135-145); Total Protein 7.0 g/dL (6.5-8.0)
--- NOTE | 2024-11-29 21:48 | PC.NURSE ---
Patient moved from waiting room to ED 15 at this time. Care assumed by this RN.
[2024-11-29 21:58] VITALS: BP 110/64; PULSE 72; RESP 16; TEMP 36.4; O2SAT 99
--- NOTE | 2024-11-29 23:10 | PC.NURSE ---
Took over care from DOREEN Mata
[2024-11-29] MEDS: iohexoL 350 MG/ML 100 ML INFUS..BTL 85 ML IV (23:37)
[2024-11-29 23:46] LABS: Glucose, Whole Blood 169 mg/dL (60-115)
[2024-11-30 00:41] VITALS: BP 102/50; PULSE 65; RESP 16; TEMP 36.5; O2SAT 97
[2024-11-30 01:50] VITALS: BP 102/50; PULSE 65; RESP 16; TEMP 36.5; O2SAT 97
== END 2024-11-30 02:03 | disposition home or self-care (01) ==
PROVIDERS: Physician Assistant Medical; Emergency Provider Emergency Medicine; PCP Internal Medicine Geriatric Medicine
DX: R35.0 Frequency of micturition (principal); E27.9 Disorder of adrenal gland, unspecified; R10.24 Suprapubic pain; E11.9 Type 2 diabetes mellitus without complications; I10 Essential (primary) hypertension; K21.9 Gastro-esophageal reflux disease without esophagitis; Z79.84 Long term (current) use of oral hypoglycemic drugs
CPT/HCPCS: 36415; 74177; 80048; 80076; 81001; 82947; 83690; 85025; 96374; 99285; Q9967

== ENCOUNTER → 2024-11-29 22:49 | Outpatient (BNV) | payer OTHER, SELFPAY | PROVIDERS: Emergency Provider Emergency Medicine; PCP Internal Medicine Geriatric Medicine; Visit Provider General Practice | DX: E27.9 Disorder of adrenal gland, unspecified (principal) | CPT/HCPCS: 74177 ==

== ENCOUNTER 2025-01-30 09:25 | Outpatient (REF) | payer OTHER, SELFPAY ==
--- OUTSIDE RECORDS SUMMARY | 2025-01-30 11:08 | XMS_ITS | Encounter Summary ---
Author Organization [employer] Address [address] [facility] 7t [place] [address] Care Team Providers Care Multifold Operator Name Role Phone Name, Martin MICHAEL Primary Care Provider [phone] Asha Lowery PharmD Unavailable [phone] Reason for Visit * Reason Onset Date Comments Med Refill 03/17/2024 Encounter Details Date Type Department Care Team ([facility] Contact Info) Description 03/17/2024 Telephone [facility] MEDICINE [address] [place] [address] Name, MD Martin [address] [place] [address] Med Refill Social History Tobacco Use Types [...] tablet FreeStyle lancets To be sent to: [facility]/pharmacy #[id number] documented in this encounter Plan of Treatment Upcoming Encounters Date Type Department Care Team (Late st Contact Info) Description 02/08/2025 3:30 PM EST Office Visit [facility] [address] [place] [phone] Name, MD Martin [address] [place] [phone] 02/21/2025 3:00 PM EST Medication Management [facility] [address] [place] [address] Asha Lowery PharmD [address] [place] [address] documented as of this encounter Goals Goal Patient Goal Type Associated Problems Recent Progress Patient-Stated? Author Patient will adhere to medication regimen General No Asha Lowery PharmBrandyn Hemoglobin A1c < 7.5 Result Component 8.2( 5 4:22 PM EST) No Asha Lowery PharmD Record your blood [...] documented as of this encounter Care Teams Multifold Operator Relationship Specialty Start Date End Date Name, MD Martin [address] [place] [address] PCP - General Family Medicine 03/02/18 Asha Lowery PharmD [address] [place] [address] Pharmacist Internal Medicine 06/27/22 documented as of this encounter
--- OUTSIDE RECORDS SUMMARY | 2025-01-30 11:08 | XMS_ITS | Encounter Summary ---
Author Organization [employer] Address [address] [facility] 7t [place] [address] Care Team Providers Care Engraver Wood Name Role Phone Name, Martin MICHAEL Primary Care Provider [phone] Asha Lowery PharmD Unavailable [phone] Encounter Details Date Type Department Care Team (Late Contact Info) Description 05/14/2022 Orders Only [facility] [address] [place], [place] [phone] Poala Cash LPN Social History Tobacco Use Types [...] Department Care Team (Late Contact Info) Description 02/08/2025 3:30 PM EST Office Visit [facility] [address] [place] [address] [phone] Name, MD Martin [address] [place] [address] 02/21/2025 3:00 PM EST Medication Management [facility] [address] [place] [address] [phone] Puia, Josesito Barry [address] [place] [address] documented as of this encounter Visit Diagnoses Not on filedocumented in this encounter Additional Health Concerns Assessment Noted Time PHQ-9 Depression Total Score: 0 02/27/20 22 9:16 AM EST documented as of this encounter Care Teams Engraver Wood Relationship Specialty Start Date End Date Name, MD Martin [address] [place] [address] PCP - General Family Medicine 03/02/18 Asha Lowery PharmD [address] [place] [address] Pharmacist Internal Medicine 06/27/22 documented as of this encounter
--- OUTSIDE RECORDS SUMMARY | 2025-01-30 11:08 | XMS_ITS | Encounter Summary ---
Author Organization [employer] [facility] Address [address] [place] [address] 7t [place] [address] Care Team Providers Care Lens Inserter Name Role Phone Name, Martin MICHAEL Primary Care Provider [phone] Asha Lowery PharmD Unavailable [phone] Encounter Details Date Type Department Care Team (Late st Contact Info) Description 02/11/2022 Orders Only [facility] [address] [place] [phone] Ria Cmapbell LPN Social History Tobacco Use Types Packs/Day [...] Description 02/08/2025 3:30 PM EST Office Visit [facility] [address] [place] [address] NameMartin MD [address] [place] [address] 02/21/2025 3:00 PM EST Medication Management [facility] [address] [place] [address] Asha Lowery, PharmD [address] [place] [address] documented as of this encounter Visit Diagnoses Not on filedocumented in this encounter Care Teams Lens Inserter Relationship Specialty Start Date End Date Martin Gomez MD [address] [place] [address] PCP - General Family Medicine 03/02/18 Asha Lowery, RamseyD [address] [place] [address] Pharmacist Internal Medicine 06/27/22 documented as of this encounter
--- OUTSIDE RECORDS SUMMARY | 2025-01-30 11:08 | XMS_ITS | Encounter Summary ---
Author Organization [employer] Address [address] [facility] 7t [place] [address] Care Team Providers Care Offline Cutter Name Role Phone Name, Martin MICHAEL Primary Care Provider [phone] Asha Lowery PharmD Unavailable [phone] Encounter Details Date Type Department Care Team (Late Contact Info) Description 07/17/2022 Abstract [facility] MEDICINE [address] [place] [address] Name, MD Martin [address] [place] [address] [phone] Social History Tobacco Use Types Packs/Day Years [...] Description 02/08/2025 3:30 PM EST Office Visit [address] [phone] NameMartin MD [address] [place] [address] [phone] 02/21/2025 3:00 PM EST Medication Management [address] [place] [address] Asha Lowery PharmD [address] [place] [address] documented as of this encounter Goals Goal Patient Goal Type Associated Problems Recent Progress Patient-Stated? Author Hemoglobin A1c < 7.5 Result Component 8.2(01/04/2025 4:22 PM EST) No Asha Lowrey, PharmD documented as of this encounter Visit Diagnoses Not on filedocumented in this encounter Additional Health Concerns Assessment Noted Time PHQ-9 Depression Total Score: 0 02/27/20 22 9:16 AM EST documented as of this encounter Care Teams Offline Cutter Relationship Specialty Start Date End Date Name, MD Martin [address] [place] [address] PCP - General Family Medicine 03/02/18 Asha Lowery PharmD [address] [place] [address] Pharmacist Internal Medicine 06/27/22 documented as of this encounter
--- OUTSIDE RECORDS SUMMARY | 2025-01-30 11:08 | XMS_ITS | Encounter Summary ---
Author Organization [employer] Address [address] [place] [address] 7t [place] [address] Care Team Providers Care Veneer Sample Maker Name Role Phone Name, Martin MICHAEL Primary Care Provider [phone] Asha Lowery PharmD Unavailable [phone] Encounter Details Date Type Department Care Team (Latest Contact Info) Description 09/13/2018 Abstract [facility] CONVERSIONS Dental, Provider, DDS Social History [...] Care Team ( st Contact Info) Description 02/08/2025 3:30 PM EST Office Visit [facility] MEDICINE [address] [place] [phone] Name, MD Martin [address] [place] [address] 02/21/2025 3:00 PM EST Medication Management [facility] [address] [place] [phone] Asha Lowery, PharmD [address] [place] [address] documented as of this encounter Visit Diagnoses Not on filedocumented in this encounter Care Teams Veneer Sample Maker Relationship Specialty Start Date End Date Name, MD Martin [address] [place] [phone] PCP - General Family Medicine 03/02/18 Asha Lowery, RamseyD [address] [place] [address] [phone] Pharmacist Internal Medicine 06/27/22 documented as of this encounter
--- OUTSIDE RECORDS SUMMARY | 2025-01-30 11:08 | XMS_ITS | Encounter Summary ---
Author Organization [employer] Address [address] [facility] 7t [place] [address] Care Team Providers Care Gasoline Finisher Name Role Phone Name, Martin MICHAEL Primary Care Provider [phone] Asha Lowery PharmD Unavailable [phone] Reason for Visit * Reason Onset Date Comments Med Refill 09/20/2024 Encounter Details Date Type Department Care Team ([facility] Contact Info) Description 09/20/2024 Telephone [facility] MEDICINE [address] [place] [address] Name, MD Martin [address] [place] [address] Med Refill Social History Tobacco Use Types [...] and is requesting for a refill now. [facility]/pharmacy #[id number] documented in this encounter Plan of Treatment Upcoming Encounters Date Type Department Care Team (Late st Contact Info) Description 02/08/2025 3:30 PM EST Office Visit [address] [address] Name, MD Martin [address] [place] [address] 02/21/2025 3:00 PM EST Medication Management [address] [address] Asha Lowery PharmD [address] [place] [address] documented as of this encounter Goals Goal [...] documented as of this encounter Care Teams Gasoline Finisher Relationship Specialty Start Date End Date Name, MD Martin [address] [place] [address] PCP - General Family Medicine 03/02/18 Asha Lowery PharmD [address] [place] [phone] Pharmacist Internal Medicine 06/27/22 documented as of this encounter
--- OUTSIDE RECORDS SUMMARY | 2025-01-30 11:08 | XMS_ITS | Encounter Summary ---
Author Organization [employer] Address [address] [facility] 7t [place] [address] Care Team Providers Care Exhibit Display Representative Name Role Phone Name, Martin MICHAEL Primary Care Provider [phone] Asha Lowery PharmD Unavailable [phone] Reason for Visit * Reason Onset Date Comments Nurse Triage 11/30/2024 Encounter Details Date Type Department Care Team ([facility] Contact Info) Description 11/30/2024 Telephone [facility] MEDICINE [address] [place] [address] Name, MD Martin [address] [place] [address] Nurse Triage Social History Tobacco Use Types Packs/Day Years [...] encounter Miscellaneous Notes * Telephone Encounter - Citlaly Villarreal RN - 11/30/2024 2:15 PM EDT Triage call with [facility] Home Service Demonstrator ID [id number] Pt didn't answer x2. Voice message left to call [facility] triage line at [phone] * Telephone Encounter - Lupis Rosales - 11/30/2024 1:06 PM EDT Patient calling to report ED visit on : Date: 11/29 Hospital: [facility] Seen for: scrotum pain Symptomatic Yes *if yes message should go to Triage Patient advised will forward to team nurse for follow up documented in this encounter Plan of Treatment Upcoming Encounters Date Type Department Care Team (Late st Contact Info) Description 02/08/2025 3:30 PM EST Office Visit [facility] MEDICINE [address] [place] [address] Name, MD Martin [address] [place] [address] 02/21/2025 3:00 PM EST Medication Management [facility] MEDICINE [address] [place] [address] Asha Lowery PharmD [address] [place] [address] documented as of this encounter Goals Goal Patient Goal Type Associated Problems Recent Progress Patient-Stated? Author Patient will adhere to medication regimen General No Asha Lowery, PharmD Hemoglobin A1c < 7.5 Result Component 8.2( 4:22 PM EST) No Asha Lowery PharmD [...] documented as of this encounter Care Teams Exhibit Display Representative Relationship Specialty Start Date End Date Name, MD Martin [address] [place] [address] PCP - General Family Medicine 03/02/18 Asha oLwery PharmD [address] [place] [address] [phone] Pharmacist Internal Medicine 06/27/22 documented as of this encounter
--- OUTSIDE RECORDS SUMMARY | 2025-01-30 11:08 | XMS_ITS | Encounter Summary ---
Author Organization [employer] Address [address] [facility] [address] [place] [address] Care Team Providers Care Power Wood Sawyer Name Role Phone Name, Martin MICHAEL Primary Care Provider [phone] Asha Lowery PharmD Unavailable [phone] Reason for Visit * Reason Comments Med Refill Encounter Details Date Type Department Care Team ([facility] st Contact Info) Description 05/11/2024 Refill [facility] [address] [place] [address] Name, MD Martin [address] [place] [address] Social History Tobacco Use Types Packs/Day Years [...] Description 02/08/2025 3:30 PM EST Office Visit [facility] [address] [place] [id number] Name, MD Martin [address] [place] [id number] 02/21/2025 3:00 PM EST Medication Management [address] [address] Puia, Asha, PharmD [address] [place] [address] documented as of this encounter Goals Goal Patient Goal Type Associated Problems Recent Progress Patient-Stated? Author Patient will adhere to medication regimen General No Puia, Asha, PharmD Hemoglobin A1c < 7.5 Result Component 8.2( 4:22 PM EST) No Puia, Asha, PharmD Record your blood [...] documented as of this encounter Care Teams Power Wood Sawyer Relationship Specialty Start Date End Date Name, MD Martin [address] [place] [address] PCP - General Family Medicine 03/02/18 Asha Lowery PharmD [address] [place] [address] Pharmacist Internal Medicine 06/27/22 documented as of this encounter
--- OUTSIDE RECORDS SUMMARY | 2025-01-30 11:08 | XMS_ITS | Encounter Summary ---
Author Organization [employer] Address [address] [facility] [address] [place] [address] Care Team Providers Care Kennel Operator Name Role Phone Name, Martin MICHAEL Primary Care Provider [phone] Asha Lowery PharmD Unavailable [phone] Reason for Visit * Reason Onset Date Comments Appointment Request 11/30/2024 Encounter Details Date Type Department Care Team ([facility] Contact Info) Description 11/30/2024 Telephone [facility] [address] [place] [address] Name, MD Martin [address] [place] [address] Appointment Request Social History Tobacco Use Types Packs/Day Years [...] encounter Miscellaneous Notes * Telephone Encounter - Lupis Rosales - 11/30/2024 1:13 PM EDT Tc from pt requesting to reschedule apt that was scheduled today Contact pt at [phone] documented in this encounter Plan of Treatment Upcoming Encounters Date Type Department Care Team (Late st Contact Info) Description 02/08/2025 3:30 PM EST Office Visit [facility]INE [address] [place] [id number] Name, MD Martin [address] [place] [phone] 02/21/2025 3:00 PM EST Medication Management [address] [address] Asha Lowery, PharmD [address] [place] [address] documented as of this encounter Goals Goal [...] documented as of this encounter Care Teams Kennel Operator Relationship Specialty Start Date End Date Name, MD Martin [address] [place] [address] PCP - General Family Medicine 03/02/18 Asha Lowery PharmD [address] [place] [address] Pharmacist Internal Medicine 06/27/22 documented as of this encounter
--- OUTSIDE RECORDS SUMMARY | 2025-01-30 11:08 | XMS_ITS | Clinical Summary ---
Author Organization [employer] Address [address] [place] [address] Care Team Providers Care Ditcher Name Role Phone Name, Martin MICHAEL Primary Care Provider [phone] Asha Lowery PharmD Unavailable [phone] Allergies No known active allergies Medications * This document contains information received from the source organization and may not represent a complete record from that organization. Multiple Vitamins-Mineral s (Centrum Silver 50+Men) tablet Take 1 tablet by mouth Once daily. OTC Active glucose 4 g chewable tabletIndication s:Diabetes mellitus type 2 with complications (HCC) Chew 4 tablets as needed & as directed for low blood sugar (<70 mg/dL) 20 tablet 11 023 Active FreeStyle lancets INJECT 1 [address] SU[address]UTANEOUS ROUTE 3 TIMES EVERY DAY 100 each 11 024 Active pantoprazole (ProtoNix) 20 MG EC tablet 024 Active simvastatin (Zocor) 20 MG tabletIndication [...] complication, with long-term current use of insulin (HCC) INJECT 1 MG UNDER THE SKIN 1 (ONE) TIME PER WEEK. 3 mL 11 025 Active Continuous Glucose Process Validation Engineer (FreeStyle Jermaine 3 Pe[place]ody) device 1 each Once per day. Use as directed for CGM 1 each 05/28/2 025 Active famotidine (Pepcid) 40 MG tablet TOME NERY TABLETA POR V A ORAL AL ACOSTARSE 025 Active latanoprost (Xalatan) 0.005 % ophthalmic solution instill 1 drop into both eyes every night at bedtime Active metFORMIN (Glucophage) 500 MG tablet Take 1 tablet (500 mg) by mouth with breakfast and with evening meal. 60 tablet 2025 Active glucose blood (FreeStyle Precision Abisai [...] complication, with long-term current use of insulin ([facility]) Inject 22 Units under the skin in the morning. 15 mL 5 025 Active lisinopril 10 MG tablet TAKE 1 TABLET BY MOUTH EVERY DAY 90 tablet 1 025 Active sertraline (Zoloft) 50 MG tablet TOME 1 TABLETA POR VIA ORAL TODOS LOS ALLEN 90 tablet 1 025 Active pioglitazone (Actos) 15 MG tablet TAKE 1 TABLET BY MOUTH EVERY DAY 90 tablet 3 025 Active empagliflozin (Jardiance) 25 MGIndications:Ty pe 2 diabetes mellitus with other specified complication, unspecified whether termite control representative insulin use ([facility]) Take 1 tablet (25 mg) by mouth Once per day. 30 tablet 11 025 Active insulin aspart (NovoLOG FLEXPEN) 100 UNIT/ML penIndications:T ype 2 diabetes mellitus with other specified complication, with long-term current use of insulin ([facility]) Inject 16 units subQ with breakfast, 4 units with lunch & 6 units with dinner 15 mL 2 025 Active pregabalin (Lyrica) 75 MG capsuleIndicatio ns:Chronic pain syndrome TAKE 1 CAPSULE BY MOUTH AT BEDTIME 30 capsule 1 025 Active Embecta Pen Needle Karli 2 Gen 32G X 4 MM miscIndications: Type 2 diabetes mellitus with other specified complication, unspecified whether nursing home insulin use (HCC) USE DIRECTED 4 TIMES DAILY 200 each 5 025 Active BD Pen Needle Karli 2nd Gen 32G X 4 MM miscIndications: Type 2 diabetes mellitus with other specified complication, unspecified whether termite control representative insulin use (HCC) USE DIRECTED 4 TIMES DAILY 200 each 5 024 2024 Discontinued insulin aspart (NovoLOG FLEXPEN) 100 UNIT/ML penIndications:T ype 2 diabetes mellitus with other specified complication, with long-term current use of insulin (HCC) Inject 12 units subQ with breakfast, 4 units with lunch & 6 units with dinner 025 2024 Discontinued(R eorder (will not trigger notification to Pharmacy)) pregabalin (Lyrica) 75 MG capsuleIndicatio ns:Chronic pain syndrome TAKE 1 CAPSULE BY MOUTH AT BEDTIME 30 capsule 1 025 2024 Discontinued Active Problems Problem Noted Date Diagnosed Date Adrenal nodule 01/06/2025 Assessment & Plan (01/06/2025 3:16 PM EST): Will refer to endocrinology for further evaluation and care Will order a CT Abdomen w/without contrast today per [facility] radiology department recommendations. 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 No risk for self-harm, SI or HI. Reason for visit was to assess symptoms and offer referral status. Plan is to be assigned with a therapist from [facility] ([phone]). Referral placed on 11/24. Recommended incorporating coping skills into his daily routine. At this time Gonzales Flannery meets criteria for Visit Diagnoses: Problem List Items Addressed This Visit Other Depression, unspecified Uncomplicated bereavement Patient ready to address current needs Yes Strengths include cultural identity and motivation to change PLAN: 1. Follow up with [facility]: Not recommended for follow-up 2. Patient goal [...] to be assigned with a therapist from [facility] ([phone]). Referral placed on 11/24. Recommended incorporating coping skills into his daily routine. At this time Gonzales Flannery meets criteria for Visit Diagnoses: Problem List Items Addressed This Visit Other Depression, unspecified Uncomplicated bereavement Patient ready to address current needs Yes Strengths include cultural identity and motivation to change PLAN: 1. Follow up with [facility]: Not recommended for follow-up 2. Patient goal [...] to change. PLAN: 1. Follow up with [facility]: Not recommended for follow-up 2. Patient goal is to start individual therapy and accept the passing of his sister 3. Behavioral Recommendations a. Referral for OP individual therapy b. Follow-up with PCP to do lab work and exams c. Coping skills into daily routine to decrease depressive symptoms Bilateral cataracts 02/19/2022 Opioid dependence in remission (CMS/HCC) 022 Ectropion of both eyes 02/19/2022 Diabetic polyneuropathy 06/09/2017 Type 2 diabetes mellitus 06/09/2017 Essential hypertension 06/09/2017 Encounters Date Type Department Care Team Description 01/10/2025 Refill [facility] [address] [place], [place] [phone] Martin Gomez MD Type 2 diabetes mellitus with other specified complication, unspecified whether nursing home insulin use (HCC) 01/08/2025 Refill [facility] [address] [place] [address] Martin Gomez MD Chronic pain syndrome 01/06/2025 3:00 PM EST Office Visit [facility] [address] [place] [address] Martin Gomez MD Adrenal nodule ([facility]) (Primary Dx) 01/06/2025 Travel 01/05/2025 Telephone [facility] [address] [place] [address] Km Zhang [place] chart prep 01/04/2025 Travel 12/27/2024 Telephone [facility] [address] [place] [address] Martin Gomez MD Lab Orders (PT requesting his recent lab result please call patient. ) 12/12/2024 Refill [facility] [address] [place] [address] Martin Gomez MD Type 2 diabetes mellitus with other specified complication, unspecified whether termite control representative insulin use (HCC) 12/08/2024 Telephone [facility] [address] [place] [address] Asha Lowery, PharmD 12/05/[address] [address] Martin Gomez MD ER Follow-up 11/30/[address] [address] Martin Gomez MD Appointment Request 11/30/[address] [address] Martin Gomez MD Referral 11/30/[address] [address] Martin Gomez MD Nurse Triage 11/29/2024 Orders Only [facility] External Provider, [facility] 11/25/[address] [address] Km Zhang [place] nov recalls; Medication Question 11/02/[address] [address] Martin Gomez MD Med Refill 11/02/[address] [address] Martin Gomez MD Chronic pain syndrome 11/01/[address] [address] Martin Gomez MD from Last 3 Months Immunizations Immunization Administration [...] Sign Reading Time Taken Comments Blood Pressure 142/64 01/06/2025 3:11 PM EST Pulse 80 01/06/2025 2:50 PM EST Temperature 36.2 C (97.1 F) 01/06/2025 2:50 PM EST Respiratory Rate 17 01/06/2025 2:50 PM EST Oxygen Saturation 95% 10/11/2024 3:35 PM EDT Inhaled Oxygen Concentration - - Weight 68.9 kg (151 lb 12.8 oz) 01/06/2025 2:50 PM EST Height 167.6 cm (5' 6 ) 01/06/2025 2:50 PM EST Body Mass Index 24.5 01/06/2025 2:50 PM EST Plan of Treatment Upcoming Encounters Date Type Department Care Team (Late st Contact Info) Description 02/08/2025 3:30 PM EST Office Visit [facility] [address] [place] [phone] Name, MD Martin [address] [place] [phone] 02/21/2025 3:00 PM EST Medication Management [address] [address] PuiaShirlenesa, PharmD [address] [place] [phone] Health Maintenance Due Date Last Done Comments CT Colonography 1950 FIT DNA/Cologuard 1950 FIT 1950 FOBT 1950 Sigmoidoscopy 1950 Zoster Vaccines (1 of 2) 01/26/2000 COVID-19 Vaccine ( - season) 2024 02/07/2021, 08/08/2020, 07/11/2020 Influenza Vaccine (#1) 2024 , 11/23/2018, 01/11/2018 Diabetes: Foot Exam 11/16/2024 11/17/2023, 11/17/2023, 11/17/2023, Additional history exists RSV Patients and Patients Aged 60 years or older (1 - 1-dose 75+ series) 2025 Diabetes: Urine Protein Screening 02/07/2025 02/08/2024, 03/04/2022, 07/30/2021, Additional history exists Eye Exam 03/17/2025 03/17/2023 Diabetes: Hemoglobin A1C 04/06/2025 025, 10/11/2024, 09/22/2024, Additional history exists SDOH Screening 10/04/2025 10/04/2024 Alcohol/Substance Use Screening 10/11/2025 10/11/2024 Depression Screening 10/11/2025 10/11/2024, 10/12/19 25 Lipid Panel 11/10/2025 11/10/2024, 12/11/2023, 03/04/2022, Additional history exists Tobacco Screening 01/06/2026 01/06/2025 Colonoscopy 07/05/2028 07/06/2023 Colorectal Cancer Screening 07/05/2028 [...] 8.2( 5 4:22 PM EST) No Asha Lowery, PharmBrandyn Record your blood sugar as directed Result Component No Puia, Josesito Barry Note: Use CGM, ensuring sensor is scanned at least once every 8 hours to capture 24H data. Check BG manually, as directed. Procedures Procedure Name Priority Date/Time Associated Diagnosis Comments POCT GLYCATED HEMOGLOBIN, TOTAL Routine 01/04/2025 4:22 PM EST Type 2 diabetes mellitus with other specified complication, with long-term current use of insulin (HCC) CT ABDOMEN PELVIS W CONTRAST Routine 11/30/2024 12:37 AM EDT GLUCOSE, WHOLE BLOOD Routine 11/29/2024 11:41 PM EDT LIPASE Routine 11/29/2024 7:03 PM EDT BASIC METABOLIC PANEL Routine 11/29/2024 7:03 PM EDT HEPATIC FUNCTION PANEL Routine 7:03 PM EDT URINALYSIS, COMPLETE, WITH REFLEX TO CULTURE Routine 11/29/2024 7:03 PM EDT CBC WITH AUTO DIFFERENTIAL Routine 11/29/2024 7:03 PM EDT MAGNESIUM Routine 11/10/2024 8:50 AM EDT Type 2 diabetes mellitus with other specified complication, with long-term current use of insulin (CMS/HCC) VITAMIN B12 Routine 11/10/2024 8:50 AM EDT Type 2 diabetes mellitus with other specified complication, with long-term current use of insulin (CMS/HCC) LIPID PANEL, STANDARD Routine 11/10/2024 8:50 AM EDT Type 2 diabetes mellitus with other specified complication, with long-term current use of insulin (CMS/HCC) COMPREHENSIVE METABOLIC PANEL Routine 11/10/2024 8:50 AM EDT Type 2 diabetes mellitus with other specified complication, with long-term current use of insulin (CMS/HCC) VITAMIN D,25-OH,TOTAL,IA Routine 11/10/2024 8:50 AM EDT Type 2 diabetes mellitus with other specified complication, with long-term current use of insulin (CMS/HCC) ALBUMIN, RANDOM URINE W/CREATININE Routine 02/08/2024 11:12 AM EST Type 2 diabetes mellitus with other specified complication, with long-term current use of insulin (CMS/HCC) Anxiety Hypoglycemia HM COLONOSCOPY Routine 07/06/2023 HEPATITIS C VIRAL RNA, QUANTITATIVE, REAL-TIME PCR Routine 12/16/2022 2:33 PM EDT from Last 3 Months or Most Recently Relevant to Health Maintenance Results * (ABNORMAL) POCT Hgb A1c (01/04/2025 4:22 PM EST) Hemoglobin A1C 8.2(A) 4.0 - 5.7 % Blood 01/04/2025 4:22 PM EST us Martin Gomez MD POINT OF CARE TEST ENTER/EDIT OR DERABLES Final Result * CT Abdomen Pelvis w/ Contrast (11/30/2024 12:37 AM EDT) Anatomical Region Laterality Modality Body, Pelvis, Abdomen Computed T omography 11/30/2024 12:3 7 AM EDT Narrative 11/30/2024 12:38 AM EDT [place] [address] [address] Scan Report Signed Patient: Gonzales Winston MR#: [id number] 0901 : 1950 Acct:[id number] Age/Sex: 74 / M ADM Date: 11/29/24 Loc: .ED Attending Dr: Ordering Physician: Shruti Hinton Date of Service: 11/29/24 Procedure(s): CT abdomen pelvis w IV con Accession Number(s): [id number] cc: Shruti Hinton; Name,Martin MICHAEL Report Number: [id number]: Total DLP = 410.00 mGy-cm Reason for Exam: pelvic pain/hernia?/prostate patholgy? CLINICAL HISTORY: pelvic pain hernia? prostate patholgy? CT abdomen and pelvis with contrast Comparison: None provided Findings: The lung bases are clear. Gallbladder is unremarkable. No focal hepatic lesion. Pancreas, spleen are within normal limits. 1.1 cm indeterminate right adrenal nodule is present. Left adrenal gland is unremarkable. Kidneys enhance symmetrically and are grossly non hydronephrotic. Nonobstructing calculus is in the lower pole of the right kidney. No bowel obstruction, pneumoperitoneum, or pneumatosis. The appendix is not visualized. The bones are intact. Severe degenerative changes are noted throughout the lumbar spine. IMPRESSION: No acute findings. 1.1 cm indeterminate right adrenal nodule. Routine nonemergent follow-up adrenal mass protocol CT may be helpful for further evaluation if clinically indicated. This document has been electronically signed by: Harsh Rush MD, PHD on 11/30/2024 00:37:19 Dictated By: Harsh Rush MD Signed By: <Electronically signed by Harsh Rush MD in OV> 11/30/2436 DD/ TD/TT: 11/30/2436 Pest Control Supervisor: Procedure Note Donotuseinterpreter, Image - 11/30/[address] [place] [address] [address] Scan Report Signed Patient: Gonzales Winston [facility]#: [id number] : 1950Acct:[id number] Age/Sex: 74 / MADM Date: 11/29/24 Loc: HO.ED Attending Dr: Ordering Physician: Shruti Hinton Date of Service: 11/29/24 Procedure(s): CT abdomen pelvis w IV con Accession Number(s): [id number] cc: Shruti Hinton; Name,Martin MICHAEL Report Number: [id number]: Total DLP = 410.00 mGy-cm Reason for Exam: pelvic pain/hernia?/prostate patholgy? CLINICAL HISTORY: pelvic pain hernia? prostate patholgy? CT abdomen and pelvis with contrast Comparison: None provided Findings: The lung bases are clear. Gallbladder is unremarkable. No focal hepatic lesion. Pancreas, spleen are within normal limits. 1.1 cm indeterminate right adrenal nodule is present. Left adrenal gland is unremarkable. Kidneys enhance symmetrically and are grossly non hydronephrotic. Nonobstructing calculus is in the lower pole of the right kidney. No bowel obstruction, pneumoperitoneum, or pneumatosis. The appendix is not visualized. The bones are intact. Severe degenerative changes are noted throughout the lumbar spine. IMPRESSION: No acute findings. 1.1 cm indeterminate right adrenal nodule. Routine nonemergent follow-up adrenal mass protocol CT may be helpful for further evaluation if clinically indicated. This document has been electronically signed by: Harsh Rush MD, PHD on 11/30/2024 00:37:19 Dictated By: Harsh Rush MD Signed By: <Electronically signed by Harsh Rush MD in OV> 11/30/2436 DD/ TD/TT: 11/30/2436 Pest Control Supervisor: [facility] External Provider IMG CT PROCEDURES Edited Result - Final * (ABNORMAL) Glucose, Whole Blood (11/29/2024 11:41 PM EDT) Glucose, Whole Blood 169(H) 60 - 115 mg/dL [facility] Comment:METER #: [id number] 11/29/2024 11:4 1 PM EDT 11/29/2024 11:45 PM EDT Generic External Data Provider LAB BLOOD ORDERAB LES Final Result [facility] [address] [place] [phone] * (ABNORMAL) Urinalysis, Complete, with Reflex to Culture (11/29/2024 7:03 PM EDT) Color Urine Yellow [facility] Appearance Urine Clear [facility] PH 6.5 5.0 - 9.0 [facility] Glucose Urine UA >=1000(A) Negative mg/dL [facility] Urine Blood Negative Negative [facility] Specific [place] - Urine <=1.005 1.005 - 1.025 [facility] Urine Protein Negative Neg-Trace mg/dL [facility] Urine Ketones Negative Negative mg/dL [facility] Nitrite Urine Negative Negative [facility] Leukocyte Esterase Urine Negative Negative [facility] RBC Urine 0-2 0 - 2 /HPF [facility] Urine WBC 0-5 0 - 5 /HPF [facility] Urine Squamous Epithelial Cell 0-2 0 - 2 /HPF [facility] Urine Bacteria None Seen None Seen [facility] Hyaline Casts, Urine 0-2 0 - 2 /LPF [facility] 11/29/2024 7:03 PM EDT 11/29/2024 7:07 PM EDT Narrative [facility] - 11/29/2024 7:35 PM EDT [id number], Clean Catch us Generic External Data Provider LAB URINE ORDERAB LES Final Result Performing Organization Address City/State/[facility] Co de Phone Number [facility] [address] [place] [phone] * (ABNORMAL) CBC auto differential (11/29/2024 7:03 PM EDT) White Blood Count 6.3 4.8 - 10.8 X10*3/uL [facility] Red Blood Count 4.45(L) 4.60 - 5.80 X10*6/uL [facility] Hemoglobin 13.2(L) 14.0 - 18.0 g/dl [facility] Hematocrit 38.5(L) 42.0 - 52.0 % [facility] Mean Corpuscular Volume 86.5 80.0 - 98.0 fL [facility] Mean Corpuscular Hemoglobin 29.7 27.0 - 33.0 pg [facility] Mean Corpuscular HGB Conc 34.3 31.0 - 36.0 g/dl [facility] Red Cell Distribution Width 13.2 11.0 - 16.0 % [facility] Platelet Count 192 160 - 400 X10*3/uL [facility] Mean Platelet Volume 10.3 9.4 - 12.4 fL [facility] Neutrophils Percent Auto 71.0 45 - 73 % [facility] Imm Gran Pct Auto 0.3 0.0 - 0.4 % [facility] Lymphocytes Percent Auto 22.6 20 - 40 % [facility] Monocytes Percent Auto 5.7 2 - 11 % [facility] Eosinophils Percent Auto 0.2 0 - 4 % [facility] Basophils Percent Auto 0.2 0 - 2 % [facility] NRBC Pct Auto 0.0 0.0 - 0.2 /100WBC [facility] Neutrophils Absolute Auto 4.5 2.0 - 8.3 x10*3/uL [facility] Imm Gran Abs Auto 0.02 0.00 - 0.03 X10*3/uL [facility] Lymphocytes Absolute Auto 1.4 1.2 - 4.9 X10*3/uL [facility] Monocytes Absolute Auto 0.4 0.1 - 1.2 X10*3/uL [facility] Eosinophils Absolute Auto 0.0 0.0 - 0.4 X10*3/uL [facility] Basophils Absolute Auto 0.0 0.0 - 0.2 X10*3/uL [facility] NRBC Abs Auto 0.000 0.0 - 0.012 X10*3/uL [facility] 11/29/2024 7:03 PM EDT 11/29/2024 7:07 PM EDT us Generic External Data Provider LAB BLOOD ORDERAB LES Final Result [facility] [address] [place] [phone] * Lipase (11/29/2024 7:03 PM EDT) Lipase 30 8 - 78 U/L [facility] 11/29/2024 7:03 PM EDT 11/29/2024 7:07 PM EDT Generic External Data Provider LAB BLOOD ORDERAB LES Final Result Performing Organization Address [facility] Co de Phone Number [facility] [address] [place] [phone] * Hepatic Function Panel (11/29/2024 7:03 PM EDT) [facility] Bilirubin, Total 0.3 0.0 - 1.0 mg/dL [facility] Bilirubin, Direct 0.1 0.0 - 0.5 mg/dL [facility] Aspartate Amino Transferase 24 5 - 37 U/L [facility] Alanine Aminotransferase 26 0 - 40 U/L [facility] Total Protein 7.0 6.5 - 8.0 g/dL [facility] Albumin Level 4.5 3.5 - 5.0 g/dL [facility] Alkaline Phosphatase 65 39 - 117 U/L [facility] 11/29/2024 7:03 PM EDT 11/29/2024 7:07 PM EDT [employer] External Data Provider LAB BLOOD ORDERAB LES Final Result Performing Organization Address [facility] de Phone Number [facility] [address] [place] [phone] * (ABNORMAL) Basic Metabolic Panel (11/29/2024 7:03 PM EDT) [facility] Sodium 142 135 - 145 mmol/L [facility] Potassium 4.0 3.3 - 5.1 mmol/L [facility] Chloride 106 96 - 108 mmol/L [facility] Carbon Dioxide 28 22 - 29 mmol/L [facility] Anion Gap 12 12 - 20 [facility] Urea Nitrogen (BUN) 22(H) 9 - 16 mg/dL [facility] Creatinine, Serum 1.02 0.5 - 1.4 mg/dL [facility] Creatinine Clr Calc Pharmacy 57.3 [facility] Comment:eGFR (calculated fro m the MDRD study equation) and eCrCl(calculated from the Cockcroft-Gault equation) are based ondifferent parameters and may not yield comparable results.If eCrCl result is absurd, please check patient'sheight/weight. Estimated Glomerular Filt Rate >60 [facility] Comment:Chronic Kidney Disea se: Estimated GFR < 60 mL/min/1.33t8Slnakz Kidney Disease: Estimated GFR < 15 mL/min/1.73m2 Glucose 147(H) 60 - 115 mg/dL [facility] Calcium 9.5 8.4 - 10.2 mg/dL [facility] 11/29/2024 7:03 PM EDT 11/29/2024 7:07 PM EDT us Generic External Data Provider LAB BLOOD ORDERAB LES Final Result [facility] [address] [place] [phone] * Vitamin D, 25-Hydroxy, Total, Immunoassay (11/10/2024 8:50 AM EDT) Vitamin D 25-OH Total 87.5 >30 ng/mL [facility] Comment: Health Based Reference Values*< 20 ng/mL [id number] ng/mL Insufficient> 30 ng/mL Sufficient*Nara ORDAZ. N Engl J Med. 2007;357:266-280There is no well-established upper level of normal vitamin Dlevels. Some laboratories use 50 ng/mL as an upper limit ofnormal. However, toxicity is patient-dependent and may occurat any level. Careful correlation with the patient'spresentation is necessary and, if there is concern forvitamin D toxicity, treatment should be consideredirrespective of the serum level.Care must be taken in interpreting Vitamin D results fromdifferent laboratories and methodologies. Published datademonstrated that results from patients undergoinghemodialysis may show a negative bias when tested withvarious automated 25-OH vitamin D assays when compared toLC-MS/MS.When testing samples from patients whose predominant form ofVitamin D is Vitamin D2, such as patients receiving VitaminD2 supplementation, results that are subtherapeutic shouldbe confirmed with another method such as LC-MS/MS. Blood Venous blood specimen / Unknown 11/10/2024 8:50 AM EDT 11/10/2024 11:41 AM EDT us Martin Gomez MD LAB BLOOD ORDERABLES Final Resul t Performing Organization Address [facility] Co de Phone Number [facility] [address] [place] [phone] * Magnesium (11/10/2024 8:50 AM EDT) Magnesium 2.0 1.6 - 2.6 mg/dL [facility] Blood Venous blood specimen / Unknown 11/10/2024 8:50 AM EDT 11/10/2024 11:41 AM EDT us Martin Gomez MD LAB BLOOD ORDERABLES Final Resul t Performing Organization Address [facility] de Phone Number [facility] [address] [place] [phone] * Vitamin B12 (11/10/2024 8:50 AM EDT) Vitamin B12 453 200 - 900 pg/mL [facility] Comment:NORMAL 200-900 PG/ML INDETERMINATE 160-199 PG/ML DEFICIENT < 160 PG/ML Blood Venous blood specimen / Unknown 11/10/2024 8:50 AM EDT 11/10/2024 11:41 AM EDT us Martin Gomez MD LAB BLOOD ORDERABLES Final Resul t Performing Organization Address [facility] Co de Phone Number [facility] [address] [place] [phone] * Lipid Panel, Standard (11/10/2024 8:50 AM EDT) Triglycerides 62 <150 mg/dL [facility] Comment:Desirable Triglyceri de: less than 150 mg/dLBorderline High Triglyceride 150-199 mg/dLHigh Triglyceride: 200-499 mg/dLVery High Triglyceride: greater than or equal to 5OO mg/dL Cholesterol 158 <200 mg/dL [facility] Comment:Desirable Cholestero l: less than 200 mg/dLBorderline High Cholesterol: 200-239 mg/dLHigh Cholesterol: greater than 239 mg/dL LDL Cholesterol Calculated 78 <100 mg/dL [facility] Comment:Desirable LDL: less than 100 mg/dLNear Optimal/Above Optimal LDL: 110- 129 mg/dLBorderline High LDL: 130-159 mg/dLHigh LDL: 160-189 mg/dLVery High LDL: greater than or equal to 190 mg/dL HDL Cholesterol 68 >40 mg/dL [facility] Comment:Desirable HDL: great er than 40 mg/dL Note: This HDL assay may give artificially low results in patients with liver disease. Blood Venous blood specimen / Unknown 11/10/2024 8:50 AM EDT 11/10/2024 11:41 AM EDT us Martin Name LAB BLOOD ORDERABLES Final Resul t [facility] [address] [place] [phone] * (ABNORMAL) Comprehensive Metabolic Panel (11/10/2024 8:50 AM EDT) Sodium 139 135 - 145 mmol/L [facility] Potassium 4.4 3.3 - 5.1 mmol/L [facility] Chloride 103 96 - 108 mmol/L [facility] Carbon Dioxide 28 22 - 29 mmol/L [facility] Anion Gap 12 12 - 20 [facility] Urea Nitrogen (BUN) 32(H) 9 - 16 mg/dL [facility] Creatinine, Serum 1.12 0.5 - 1.4 mg/dL [facility] Estimated Glomerular Filt Rate >60 [facility] Comment:Chronic Kidney Disea se: Estimated GFR < 60 mL/min/1.43t0Nlrlsm Kidney Disease: Estimated GFR < 15 mL/min/1.73m2 Glucose 215(H) 60 - 115 mg/dL [facility] Calcium 9.5 8.4 - 10.2 mg/dL [facility] Bilirubin, Total 0.2 0.0 - 1.0 mg/dL [facility] Aspartate Amino Transferase 24 5 - 37 U/L [facility] Alanine Aminotransferase 21 0 - 40 U/L [facility] Total Protein 7.0 6.5 - 8.0 g/dL [facility] Albumin Level 4.5 3.5 - 5.0 g/dL [facility] Alkaline Phosphatase 62 39 - 117 U/L [facility] Blood Venous blood specimen / Unknown 11/10/2024 8:50 AM EDT 11/10/2024 11:41 AM EDT us Martin Gomez MD LAB BLOOD ORDERABLES Final Resul t Performing Organization Address City/[facility] Co de Phone Number [facility] [address] [place] [phone] * Albumin, Random Urine W/Creatinine (02/08/2024 11:12 AM EST) Creatinine, Urine 48.91 mg/dL [facility] Microalbumin Urine <5.0 mg/L [facility] Microalbum Creatinine Ratio Ur TNP <30 ug/mg cr [facility] Comment:Unable to calculate albumin/creatinine ratio due to lowmicroalbumin or creatinine result. Urine (Urine, Random) 02/08/2024 11:12 AM EST 02/08/2024 1:09 PM EST us Martin Gomez MD LAB URINE ORDERABLES Final Resul t Performing Organization Address City/[facility]/ZIP Co de Phone Number [facility] [address] [place] [phone] * (ABNORMAL) Colonoscopy (07/06/2023) Colonoscopy Abnormal(A ) Normal Martin Gomez MD HEALTH MAINTENANCE Final Result * Hepatitis C Viral RNA, Quantitative, Real-Time PCR (12/16/2022 2:33 PM EDT) Hepatitis C Viral Load <15 NOT DETECTED NOT DETECTED IU/mL [facility] HCV Log PCR <1.18 NOT DETECTED NOT DETECTED Log IU/mL [facility] Comment:This test was perfor med using Real-Time Polymerase ChainReaction.Reportable Range: 15 IU/mL to 100,000,000 IU/mL(1.18 Log IU/mL to 8.00 Log IU/mL).The analytical performance characteristics of thisassay have been determined by [employer].The modifications have not been cleared or approved bythe FDA. This assay has been validated pursuant to theCLIA regulations and is used for clinical purposes.For more information on this test, go to:http://education.[employer]/faq/EZM19x0(This link is being provided for informational/educational purposes only.)THIS TEST WAS PERFORMED AT:[facility] [place] [id number] CORTÉS MD 12/16/2022 2:33 PM EDT 12/16/2022 2:34 PM EDT [facility] External Provider LAB BLO OD ORDERABLES Final Result [facility] [address] [place] [phone] from Last 3 Months or Most Recently Relevant to Health Maintenance Insurance [employer] (HMO D-SNP) [place]AL [id number] Care Teams Ditcher Relationship Specialty Start Date End Date Name, MD Martin [address] [place] [address] PCP - General Family Medicine 03/02/18 Asha Lowery PharmD [address] [place] [address] Pharmacist Internal Medicine 06/27/22
--- OUTSIDE RECORDS SUMMARY | 2025-01-30 11:08 | XMS_ITS | Encounter Summary ---
Author Organization [employer] Address [address] [facility] [address] [place] [address] Care Team Providers Care Meteorologist Liaison Name Role Phone Name, Martin MICHAEL Primary Care Provider [phone] Asha Lowery PharmD Unavailable [phone] Reason for Visit * Reason Onset Date Comments Med Refill 11/02/2024 Encounter Details Date Type Department Care Team ([facility] Contact Info) Description 11/02/2024 Telephone [facility] [address] [place] [address] Name, MD Martin [address] [place] [address] Med Refill Social History Tobacco Use Types [...] 75 MG capsule To be sent to: [facility]/pharmacy #[id number] [place], [place] - [address] [place] [address] documented in this encounter Plan of Treatment Upcoming Encounters Date Type Department Care Team (Late st Contact Info) Description 02/08/2025 3:30 PM EST Office Visit [facility] [address] [place] [address] Name, MD Martin [address] [place] [address] 02/21/2025 3:00 PM EST Medication Management [facility] [address] [place] [address] Asha Lowery PharmD [address] [place] [address] documented as of this encounter Goals Goal [...] documented as of this encounter Care Teams Meteorologist Liaison Relationship Specialty Start Date End Date Name, MD Martin [address] [place] [phone] PCP - General Family Medicine 03/02/18 Asha Lowery PharmD [address] [place] [phone] Pharmacist Internal Medicine 06/27/22 documented as of this encounter
--- OUTSIDE RECORDS SUMMARY | 2025-01-30 11:08 | XMS_ITS | Encounter Summary ---
Author Organization [employer] Address [address] 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 Author Patient will adhere to medication regimen General No Puia, Asah, PharmD Hemoglobin A1c < 7.5 Result Component 8.2( 5 4:22 PM EST) No Puia, Asha, PharmD Record your blood sugar as directed Result Component No Puia, Asha, PharmD Note: Use CGM, ensuring sensor is scanned at least once every 8 hours to capture 24H data. Check BG manually, as directed. documented as of this encounter Visit Diagnoses Diagnosis Diabetes mellitus type 2 with complications (HCC) documented in this encounter Additional Health Concerns Assessment Noted Time PHQ-9 Depression Total Score: 20 023 12:12 PM EDT documented as of this encounter Care Teams Associate Veterinarian Relationship Specialty Start Date End Date Name, MD Martin [address] [place] [address] [phone] PCP - General Family Medicine 03/02/18 Asha Lowery, Josesito [address] [place] [address] [place] [phone] Pharmacist Internal Medicine 06/27/22 documented as of this encounter
[2025-01-30 12:07] LABS: Anion Gap 15 (12-20); Blood Urea Nitrogen 18 mg/dL (9-16); Calcium 9.4 mg/dL (8.4-10.2); Carbon Dioxide 27 mmol/L (22-29); Chloride 101 mmol/L (96-108); Estimated Glomerular Filt Rate > 60; Potassium 4.7 mmol/L (3.3-5.1); Sodium 138 mmol/L (135-145)
== END 2025-01-30 09:26 | disposition home or self-care (01) ==
LOC: HO.HHCL 09:25
PROVIDERS: PCP Internal Medicine Geriatric Medicine; Visit Provider Internal Medicine Geriatric Medicine
DX: E27.9 Disorder of adrenal gland, unspecified (principal)
CPT/HCPCS: 36415; 80048